=== PATIENT | male | born 1960 | race Caucasian/White ===

== ENCOUNTER 2016-06-02 05:52 | Inpatient (IN) | payer MEDICARE ==
[2016-06-02] MEDS ORDERED: PROVENTIL 2.5 MG/3 ML NEB IH ONE ×2 (06:00→06:29)
[2016-06-02] MEDS ORDERED: Sodium Chloride 0.9% 1000 ML 1,000 ML ONE (06:07)
--- NOTE | 2016-06-02 06:10 | ERPHSYRPT ---
- History of Present Illness Source: patient Exam Limitations: no limitations Patient Subjective Stated Complaint: pt has been short of air for 2 weeks and hasn't been able to sleep ashley las couple of night and tonight it is worse - cough is productive of green sputum upon arr of ems he was sitting tripod in chair able to speak in single words using accessory muscles Triage Nursing Assessment: pt is awake and alert and able to answer questions but is still short of breath Timing/Duration: week(s) (2 weeks) Activities at Onset: none Severity of Dyspnea-Max: moderate Severity of Dyspnea-Current: moderate Possible Cause: occasional episodes Modifying Factors: Improves With: coughing Associated Symptoms: constant, cough, fever, wheezing, productive cough, No anxiety, No chest pain/discomfort, No edema, No insomnia, No loss of appetite, No lightheadedness, No weakness, No ankle swelling, No chills, No hemoptysis, No calf pain, No dizziness, No heaviness, No heart racing, No lightheadedness, No leg swelling, No muscle spasms feet, No muscle spasms hands, No painful breathing, No sweating, No tightness, No tingling face, No tingling hands International travel in last 2 weeks: No Hx Tetanus, Diphtheria Vaccination/Date Given: Yes Hx Influenza Vaccination/Date Given: No Hx Pneumococcal Vaccination/Date Given: No <WALTER TIJERINA - Last Filed: 06/02/16 07:17> <KAYE POTTS - Last Filed: 06/02/16 08:56> - History of Present Illness Time Seen by Provider: 06/02/16 06:00 Physician History: This is a 56-year-old white male arrives with complaint Of shortness of breath cough productive of yellow sputum and fever symptoms going on for 2 weeks he states he is aching all over he does not have chest pain. He is not vomiting no diarrhea. Past medical history includes high blood pressure, COPD, asthma. Past surgical history includes joint replacement. Social history positive for tobacco use, (WALTER TIJERINA) Allergies/Adverse Reactions: No Known Drug Allergies Allergy (Verified 06/02/16 06:11) Home Medications: Albuterol Sulfate [Proair Hfa] 8.5 gm IH Q4HPRN PRN 08/06/15 [History] Aspirin [Aspirin EC] 81 mg PO DAILY 08/06/15 [History] Budesonide/Formoterol Fumarate [Symbicort 160-4.5 Mcg Inhaler] 10.2 gm IH BID [History] Hydrocodone/APAP 10/325 mg [Delmont 10/325 MG Tablet] 1 tab PO Q6HPRN PRN [History] Hydroxyzine HCl 25 mg [Atarax 25 mg] 25 mg PO BID 08/06/15 [History] Pravastatin Sodium 40 mg PO DAILY 08/06/15 [History] Prednisone 10 mg [Deltasone 10 mg] 10 mg PO DAILY PRN PRN 08/06/15 [ History] Lisinopril/Hydrochlorothiazide [Lisinopril-Hctz 10-12.5 mg Tab] 1 each PO DAILY 01/15/16 [History] Albuterol 2.5 mg/3 ml Neb [Proventil 2.5 mg/3 ml Neb] 1 inh IH Q4-6HPRN PRN 02/02/16 [History] Metoprolol Tartrate 25 mg [Lopressor 25MG Tab] 1 tab PO DAILY 02/02/16 [ History] - Review of Systems Constitutional: Fever, No Chills, No Fatigue, No Lethargy, No Malaise, No Night Sweats, No Weakness, No Weight Loss Eyes: No Symptoms, No Discharge, No Eye Pain, No Eye Redness, No Itchy, No Photophobia, No Tearing, No Vision Changes, No Double Vision, No Foreign Body Sensation Ears, Nose, & Throat: No Ear Pain, No Ear Discharge, No Hearing Changes, No Tinnitus, No Nose Pain, No Nose Congestion, No Nose Discharge, No Sinus Drainage , No Epistaxis, No Mouth Pain, No Mouth Swelling, No Loose Teeth, No Throat Pain , No Throat Swelling, No Hoarse, No Painful Swallowing, No Snoring, No Stridor Respiratory: Cough, Dyspnea, Wheezing Cardiac: No Chest Pain, No Edema, No Syncope Abdominal/Gastrointestinal: No Abdominal Pain, No Nausea, No Vomiting, No Diarrhea, No Constipation, No Hematemesis, No Hematochezia, No Melena, No Dysphagia, No Appetite Changes Genitourinary Symptoms: No Dysuria Musculoskeletal: No Back Pain, No Neck Pain Skin: No Cellulitis, No Decubiti, No Induration, No Pruritis, No Rash, No Skin Lesions, No Dryness Neurological: No Dizziness, No Focal Weakness, No Sensory Changes Psychological: No Symptoms Endocrine: No Symptoms All Other Systems: Reviewed and Negative <ELVINMARUWALTER AHMADILEY - Last Filed: 06/02/16 07:17> - Past Medical History Pertinent Past Medical History: Yes Neurological History: No Pertinent History ENT History: No Pertinent History Cardiac History: High Cholesterol, Hypertension Respiratory History: Asthma, COPD, Other Endocrine Medical History: No Pertinent History Musculoskeletal History: No Pertinent History GI Medical History: No Pertinent History History: No Pertinent History Psycho-Social History: No Pertinent History Male Reproductive Disorders: No Pertinent History Other Medical History: COPD - Past Surgical History Past Surgical History: Yes Neuro Surgical History: No Pertinent History Cardiac: No Pertinent History Respiratory: No Pertinent History Gastrointestinal: No Pertinent History Genitourinary: No Pertinent History Musculoskeletal: Joint Replacement Male Surgical History: No Pertinent History Other Surgical History: left hip replacement - Social History Smoking Status: Current every day smoker How long have you smoked: 30YRS Exposure to second hand smoke: Yes Drug Use: none Patient Lives Alone: No <JUAN DANIELWALTER VICENTE - Last Filed: 06/02/16 07:17> - Physical Exam General Appearance: moderate distress Eye Exam: PERRL/EOMI, eyes nml inspection, No scleral icterus, No pale conjunctivae, No photophobia, No post op pupil defect (L), No post op pupil defect (R), No EOM palsy/anisocoria Ears, Nose, Throat Exam: hearing grossly normal, normal ENT inspection, normal pharynx, No abnormal TM (R), No abnormal TM (L), No sinus pain/drainage, No hearing decreased, No nasal congestion, No pharyngeal erythema, No tonsillar exudate, No tonsillar swelling Neck Exam: normal inspection, supple, full range of motion, lymphadenopathy (R) , No lymphadenopathy (L) Respiratory Exam: diminished breath sounds, wheezing, other (frequent cough) Cardiovascular/Chest Exam: tachycardia (heart tachycardic without murmur) Abdominal/Gastrointestinal Exam: soft, No tenderness, No distention, No mass Extremity Exam: non-tender, normal range of motion, normal inspection, no calf tenderness, no pedal edema Peripheral Pulses Exam: dorsalis-pedis (R): 2+, dorsalis-pedis (L): 2+ Neurologic Exam: alert, oriented x 3, cooperative, technology project manager II-XII nml as tested, sensation nml, No motor deficits Skin Exam: normal color, warm, No dry SpO2 Interpretation: normal (98%) SpO2: 98 Oxygen Delivery: Nasal Cannula <WALTER TIJERINA - Last Filed: 06/02/16 07:17> - Course Nursing assessment & vital signs reviewed: Yes EKG Interpreted by Me: RATE (117 bpm), Sinus Tach, NORMAL AXIS, Other (EKG sinus tachycardia 1 17 bpm normal axis moderate amount of artifact no acute ST or T wave changes noted) - Radiology Exams Chest X-ray Interpretation: Reviewed by me (right lowerlobe infiltrate) <WALTER TIJERINA - Last Filed: 06/02/16 07:17> - Progress Progress: improved Air Movement: fair <WALTER TIJERINA - Last Filed: 06/02/16 07:17> - Progress Air Movement: good <KAYE POTTS - Last Filed: 06/02/16 08:56> - Progress Progress Note: 06/02/16 07:17 56-year-old white male with history of high blood pressure COPD and asthma arrives with complaints of shortness of breath coughing yellow sputum of fever symptoms going on for 2 days patient was given DuoNeb treatment and Solu-Medrol by medics prior to arrival. Patient still with bilateral wheezes in his lungs patient tachycardic, patient with a blood pressure of 104.5 rectally. Patient started on IV fluids blood cultures have been obtained patient started on 100 per hour of normal saline with 2 L of normal saline IV ordered. Patient with a white count of 8.3 hemoglobin 83.3 hematocrit 44.1 platelets 227. Venous gas is pH 7.37 PCO2 65. Chemistry sodium 141 potassium 5.0 chloride 101 bicarbonate 34.6 BUN 20 and creatinine 1.19 glucose is 125 Troponin is normal BNP is normal; Chest x-ray is remarkable for a right lower lobe infiltrate; Patient does have a splint on his left arm which was placed in the middle of April by his surgeon in [facility] he is due to follow-up with his surgeon in June. Impression 1 COPD with exacerbation 2. Right lower lobe pneumonia 3. Sepsis. Plan patient will be given IV fluids Rocephin. Will continue with albuterol treatments. Repeat lactate will be obtained from this patient after IV fluids have been infused. Patient did have a elevated d-dimer CT of the chest has been ordered and is pending. Case is discussed with Dr. Camargo will admit patient to ICU with the above diagnosis Dr. Mancilla will follow-up on the patient's lactate and CT scan. . (WALTER TIJERINA) 06/02/16 07:40 Patient history was discussed with me by Dr. Tijerina. I except care at 07:00. The patient has been admitted for pneumonia and sepsis by Dr. Tijerina. The patient goes to radiology for CT scan of the chest to evaluate for PE because d- dimer is elevated. While in radiology, patient refuses the scan. The first liter of fluid has been delivered. A second lactic acid has been drawn. (KYAE POTTS) - Departure Time of Disposition: 07:21 Departure Disposition: In-patient Admission ( ) <WALTER TIJERINA - Last Filed: 06/02/16 07:17> - Departure Departure Disposition: In-patient Admission Critical Care Time: Yes Critical Care Time(excluding separately billable procedures): 30-74 minutes <KAYE POTTS - Last Filed: 06/02/16 08:56> - Departure Clinical Impression: COPD with exacerbation Pneumonia Qualifiers: Pneumonia type: due to unspecified organism Laterality: right Lung location: lower lobe of lung Qualified Code(s): J18.1 - Lobar pneumonia, unspecified organism Sepsis Qualifiers: Sepsis type: sepsis due to unspecified organism Qualified Code(s): A41.9 - Sepsis, unspecified organism Fever Qualifiers: Fever type: unspecified Qualified Code(s): R50.9 - Fever, unspecified Condition: Stable
[2016-06-02] MEDS ORDERED: Sodium Chloride 0.9% 1000 ML 1,000 ML IV SCH (06:15)
[2016-06-02 06:27] LABS: Lactic Acid 2.3 (0.4-2.0); VBG BASE EXCESS 9.7 (-2.0-2.0); VBG CARBOXYHEMOGLOBIN 3.5 % T HGB (0.0-6.9); VBG HCO3- 37.6 meq/L (22-28); VBG HEMOGLOBIN 13.7; VBG O2 SATURATION 53.2 (95-100); VBG POTASSIUM 4.6 (3.5-5.1); VBG pH 7.37 (7.32-7.42)
[2016-06-02 06:28] LABS: Mean Corpuscular Hemoglobin 29.6 pg (26-32); Mean Platelet Volume 9.4 fl (6-9.5); Platelet Count 227 K/mm3 (150-450); Red Cell Distribution Width 13.5 % (11.5-14.0); White Blood Count 8.3 K/mm3 (4.0-10.5)
[2016-06-02] MEDS ORDERED: FEVERALL 650 MG PR ONE ×2 (06:28→07:21)
[2016-06-02] MEDS ORDERED: ROCEPHIN 1 Gm-D5w 50 ml Bag** 50 ML IV ONE ×2 (06:29→06:41)
[2016-06-02] MEDS ORDERED: FEVERALL 650 MG ONE (06:30)
[2016-06-02] MEDS ORDERED: FEVERALL 325 MG ONE (06:30)
[2016-06-02 06:53] LABS: ALBUMIN 3.1 g/dL (3.4-5.0); ALKALINE PHOSPHATASE 102 U/L (46-116); ANION GAP 10.2 MEQ/L (5-15); BILIRUBIN,TOTAL 0.2 mg/dL (0.2-1.0); BLOOD UREA NITROGEN 20 mg/dL (9-20); CHLORIDE 101 mEq/L (98-107); Carbon Dioxide 34.6 mEq/L (21-32); Glucose 125 MG/DL (70-110); SGOT/AST 16 U/L (15-37); SGPT/ALT 21 U/L (12-78); SODIUM 141 mEq/L (136-145); TROPONIN < 0.017 ng/ml (0.000-0.056)
[2016-06-02] MEDS ORDERED: Sodium Chloride 0.9% 1000 ML 1,000 ML IV STA ×2 (06:56→07:01)
[2016-06-02] MEDS ORDERED: Sodium Chloride 0.9% 1000 ML 2,000 ML ONE (07:04)
[2016-06-02 07:12] LABS: Platelet Estimate NORMAL (NORMAL); Total Cells Counted 100
[2016-06-02] MEDS ORDERED: FEVERALL 325 MG PR STA (07:21)
[2016-06-02] MEDS ORDERED: DUONEB 0.5-3 MG/3 ml Neb IH PRN (08:48)
[2016-06-02] MEDS ORDERED: Zofran 4 MG/2 ML VIAL IV PRN (08:48)
[2016-06-02] MEDS ORDERED: TYLENOL 325 MG PO PRN (08:48)
--- NOTE | 2016-06-02 09:16 | XRAY ---
Indication: Short of breath. Comparison: February 02, 2016. Portable apical lordotic chest again hyperinflated with chronic lung markings and scattered calcified granulomas. There is now subtle right base infiltrate/atelectasis without consolidation or large effusion. Heart is not enlarged. Bony thorax intact. Impression: 1. Right base infiltrate/atelectasis. Correlate clinically. 2. Stable COPD and evidence for old granulomatous disease.
[2016-06-02] MEDS: Sodium Chloride 0.9% 1000 ML 1,000 ML IV SCH ×2 (09:38→21:48)
[2016-06-02] MEDS ORDERED: Zithromax 500 MG/ 250 ML NaCl Premix 250 ML IV SCH (10:00)
[2016-06-02] MEDS ORDERED: DUONEB 0.5-3 MG/3 ml Neb IH ONE (10:19)
[2016-06-02] MEDS: Advair Hfa 230/21 Mcg COMMON CANISTER IH SCH ×2 (10:20→22:07)
[2016-06-02] MEDS: DUONEB 0.5-3 MG/3 ml Neb IH SCH ×3 (10:20→21:40)
[2016-06-02] MEDS: NovoLOG Insulin SQ PRN ×2 (11:45→17:42)
--- NOTE | 2016-06-02 13:42 | CONS ---
CONSULT DATE: 06/02/2016 REASON FOR CONSULTATION: Evaluation of shortness of breath, pneumonia, sepsis. HISTORY: Lew Gomez is a 56 year-old male with significant smoking history who has recently had left elbow surgery. The patient reports that he has been sick for the last month or so. He presented to the emergency room at [facility] this morning reporting worsening shortness of breath, cough, and low grade fever. The patient was noted to be hypotensive and has been to ICU. At the time of my evaluation the patient reports feeling better. He does report cough productive of yellow expectoration. The patient denies any hemoptysis. He also had pneumonia in January 2016. The patient reports that he recently had a PFT performed at [facility] before undergoing left elbow surgery that was caused by fall on 05/02/2015. He was told that his breathing number was 25% which had improved from 17% per patient. His effort tolerance has been moderately reduced. He uses oxygen 24 hours a day along with nebulizer. Unfortunately, he continues to smoke. PAST MEDICAL HISTORY: Positive for hypertension. The patient saw Dr. Escobar and was told that he does not have coronary artery disease, there is history of hyperlipidemia. He does not have diabetes. He uses oral steroids as needed. PAST SURGICAL HISTORY: Recent left elbow surgery. PERSONAL AND SOCIAL HISTORY: He has been a smoker currently has cut down to one pack per week but in the past had smoked well over two packs per day with cumulative smoking history of 100 pack years. MEDICATIONS: Home and current medications are reviewed. ALLERGIES: NKDA. PHYSICAL EXAMINATION: This is a middle aged male who appears comfortable. The patient is able to speak without much difficulty. Vital signs are noted. Blood pressure 90/60. Saturating 98%. HEENT: Normocephalic. Pupils are reactive. Oral exam is limited. Partially edentulous. NECK: Short and supple. CVS: First and second heart sounds are normal, regular, rhythmic. RESPIRATORY: Shows diminished breath sounds. No rhonchi heard. ABDOMEN: Obese. EXTREMITIES: No significant edema is noted. LABORATORY DATA AND TESTS: D-dimer is 1.558. A pH of 7.37, pCO2 65, pO2 of 53. Sodium 141, potassium 5.0, chloride 101, bicarb 34, glucose 125, BUN 20, creatinine 1.1. Lactic acid 2.3. Albumin 3.1. White blood cell count 8.3, hemoglobin 13.3, hematocrit 44, PLT 227,000. Chest x-ray showed right lower lobe infiltrate. ASSESSMENT: This is a 56 year old male admitted with: 1) Right lower lobe community acquired pneumonia. 2) Severe sepsis secondary to community acquired pneumonia. 3) Chronic obstructive pulmonary disease with exacerbation. 4) Nicotine addiction. 5) Marginal lactic acidosis. 6) Hypercapnic/hypoxic respiratory failure. 7) Hypertension currently hypotensive due to infection. RECOMMENDATIONS: The patient is admitted to ICU. Continue close cardiopulmonary monitoring, aggressive hydration per sepsis protocol, continue broad spectrum IV antibiotics, follow up cultures, will also benefit from short bursts of steroids for bronchospasm, continue bronchodilators, deep venous thrombosis and GI prophylaxis. A CT chest with pulmonary embolism protocol may be required at some point but will certainly need monitoring of renal functions prior to administration of contrast. Need for smoking cessation was stressed. Will attempt to get results of PFT from [facility] and continue to follow. Thank you for allowing me to participate in the care of Lew GomezNanci
--- NOTE | 2016-06-02 13:53 | XRAY ---
Indication: Elevated d-dimer. Two-dimensional sonogram and color Doppler imaging of the major venous vessels of the left and right leg was performed. Comparison: None No thrombus seen in the examined deep venous vessels of the left or right leg including greater saphenous veins. Veins demonstrate normal compressibility. Venous waveforms are normal with and without augmentation. Impression: Left and right legs negative for DVT.
[2016-06-02] MEDS: ENOXAPARIN SODIUM SQ SCH (13:58)
[2016-06-02] MEDS: LEVOFLOXACIN 750MG/150ML D5W 150 ML IV SCH (13:58)
[2016-06-02] MEDS: ECOTRIN 81 MG PO SCH (13:58)
[2016-06-02] MEDS: ATARAX 25 MG PO SCH ×2 (13:58→21:47)
[2016-06-02] MEDS: solu-MEDROL 40 MG IV SCH ×2 (14:03→21:48)
--- NOTE | 2016-06-02 14:30 | HP ---
HISTORY OF PRESENT ILLNESS: Lew Gomez is a 56 year old male with past medical history of hypertension, congestive heart failure, chronic obstructive pulmonary disease, chronic pain syndrome and hyperlipidemia. He presented to the emergency room earlier this morning with symptoms of increasing shortness of breath, productive cough, chest congestion, fever off and on for the last month. His symptoms particularly got worse in the last two weeks. There was no reported history of chest pain as such. Vitals in the emergency room were notable for blood pressure 120/68 however eventually he was noted to have blood pressure 85/48 while in the emergency room. He was treated with normal saline fluid bolus x3 subsequently. He was admitted to the ICU for further monitoring and management. CT scan was attempted however the patient was claustrophobic and that could not be performed. At the time of this evaluation the patient is alert, awake, comfortable. He states his shortness of breath is somewhat better. Complains of cough with green phlegm. Complains of chest congestion. PAST MEDICAL HISTORY: As noted above. PAST SURGICAL HISTORY: Recent history of left upper extremity surgery about two weeks back. The patient said he has not followed up with his orthopedic surgeon since then. Left hip replacement. ALLERGIES: NKDA. MEDICATIONS: Current medications were reviewed. FAMILY HISTORY: Noncontributory. SOCIAL HISTORY: The patient is an active smoker. Denies illicit drug use. REVIEW OF SYSTEMS: Denies headache or dizziness. Complains of fatigue. Complains of fever. Complains of shortness of breath, productive cough, chest congestion. Denies palpitations. Denies chest pain. Denies abdominal pain, nausea or vomiting. Denies constipation or diarrhea. Denies urinary complaints. PHYSICAL EXAMINATION: A middle aged male lying comfortably in bed, not in acute distress. VITAL SIGNS: Blood pressure 116/61, heart rate 104, respiratory rate 17, temperature 98.5F. Oxygen saturation 94% on 3 liters. HEENT: No pallor or icterus is noted. NECK: No JVD is present. CVS: S1, S2 present. RESPIRATORY: Breath sounds are bilaterally diminished, bilateral wheezing present. ABDOMEN: Obese, soft, nontender. NEURO: He is alert, oriented x3. EXTREMITIES: No edema on bilateral lower extremities. Wrapping is present on left forearm area and part of left hand. LABORATORY DATA AND TESTS: Labs from today show unremarkable CBC. D-dimer 1.558. Venous blood gas shows pH 7.37. CMP unremarkable except for glucose 125, lactic acid 2.3 and then 1.2. Troponin was less than 0.017. NT-BNP 28. Chest x-ray showed right base infiltrates/atelectasis. EKG had shown sinus tachycardia at 117 beats/minute, moderate amount of artifact, no acute ST-T changes per emergency room records. Blood cultures and sputum cultures are pending. ASSESSMENT: A 56 year old male with impression: 1) CHRONIC OBSTRUCTIVE PULMONARY DISEASE WITH EXACERBATION. 2) PNEUMONIA. 3) ELEVATED D-DIMER. 4) HISTORY OF HYPERTENSION/CONGESTIVE HEART FAILURE. 5) HYPERLIPIDEMIA. 6) CHRONIC PAIN SYNDROME. 7) OBESITY. 8) RECENT HISTORY OF LEFT ARM SURGERY. PLAN: Will continue nebulization, broad spectrum IV antibiotics. Continue IV fluids. Continue to monitor hemodynamic status. Addition of IV steroids. Pulmonary consult was noted. Will start full dose anticoagulation. Will follow up cultures. The patient's clinical condition, work up results and plan of management was discussed with him. He seems to be in understanding and agreement. Discussed with patient's nurse, Yue.
[2016-06-02] MEDS: OXYCODONE-ACETAMINOPHEN 10-325 PO PRN ×2 (16:07→21:47)
[2016-06-02 17:25] LABS: Mean Cell Volume 99.5 fl (78-100); Mean Corpuscular Hemoglobin 29.8 pg (26-32); Mean Platelet Volume 9.3 fl (6-9.5); Platelet Count 210 K/mm3 (150-450); Red Blood Count 3.99 M/mm3 (4.1-5.6); Red Cell Distribution Width 13.9 % (11.5-14.0); White Blood Count 7.1 K/mm3 (4.0-10.5)
[2016-06-02 18:06] LABS: ALBUMIN 2.8 g/dL (3.4-5.0); ALKALINE PHOSPHATASE 89 U/L (46-116); ANION GAP 15.2 MEQ/L (5-15); BLOOD UREA NITROGEN 17 mg/dL (9-20); CHLORIDE 102 mEq/L (98-107); Carbon Dioxide 26.2 mEq/L (21-32); Glucose 185 MG/DL (70-110); Potassium 4.4 mEq/L (3.5-5.1); SGOT/AST 16 U/L (15-37); SGPT/ALT 15 U/L (12-78); SODIUM 139 mEq/L (136-145); Total Protein 6.6 gm/dL (6.4-8.2)
[2016-06-02 18:09] LABS: BILIRUBIN,TOTAL < 0.1 mg/dL (0.2-1.0)
[2016-06-02 18:17] LABS: VBG CARBOXYHEMOGLOBIN 4.2 % T HGB (0.0-6.9); VBG HEMOGLOBIN 12.3; VBG POTASSIUM 4.6 (3.5-5.1); VBG pH 7.17 (7.32-7.42)
[2016-06-02] MEDS ORDERED: Lasix 20 MG/2 ML IV ONE (18:25)
[2016-06-02] MEDS ORDERED: Ativan 2 MG/1 ML VIAL IV PRN (18:25)
[2016-06-02 21:25] LABS: A-aADO2 143; ARTERIAL BLD GAS O2 SATURATION 99.7 % (95-100); ARTERIAL BLOOD GAS BASE EXCESS 4.8 (-2.0-2.0); ARTERIAL BLOOD GAS FIO2 45 %; ARTERIAL BLOOD GAS PO2 114 mmHg (75-100); ARTERIAL BLOOD GAS pH 7.39 (7.35-7.45)
[2016-06-02] MEDS: ROCEPHIN 1 Gm-D5w 50 ml Bag** 50 ML IV SCH (21:47)
[2016-06-03] MEDS: DUONEB 0.5-3 MG/3 ml Neb IH SCH ×6 (00:27→20:36)
[2016-06-03 05:27] LABS: Mean Corpuscular Hemoglobin 29.5 pg (26-32); Mean Platelet Volume 9.3 fl (6-9.5); Platelet Count 230 K/mm3 (150-450); Red Blood Count 4.03 M/mm3 (4.1-5.6); Red Cell Distribution Width 13.8 % (11.5-14.0)
[2016-06-03 05:53] LABS: ALBUMIN 2.8 g/dL (3.4-5.0); ALKALINE PHOSPHATASE 91 U/L (46-116); ANION GAP 13.5 MEQ/L (5-15); BLOOD UREA NITROGEN 20 mg/dL (9-20); CHLORIDE 101 mEq/L (98-107); Carbon Dioxide 27.7 mEq/L (21-32); Glucose 161 MG/DL (70-110); Potassium 4.4 mEq/L (3.5-5.1); SGOT/AST 14 U/L (15-37); SGPT/ALT 16 U/L (12-78); SODIUM 138 mEq/L (136-145); Total Protein 6.6 gm/dL (6.4-8.2)
[2016-06-03 05:54] LABS: BILIRUBIN,TOTAL < 0.1 mg/dL (0.2-1.0)
[2016-06-03] MEDS: solu-MEDROL 40 MG IV SCH ×3 (05:58→22:34)
[2016-06-03 06:01] LABS: BIPAP(E) 10; BIPAP(I) 16
[2016-06-03 06:02] LABS: ALLEN TEST OK? YES
[2016-06-03] MEDS: Advair Hfa 230/21 Mcg COMMON CANISTER IH SCH ×2 (07:15→20:36)
[2016-06-03 07:29] LABS: BAND 11 % (0.0-2.0); Basophil 1 % (0.0-1.0); Total Cells Counted 100
[2016-06-03 07:30] LABS: Platelet Estimate NORMAL (NORMAL)
[2016-06-03] MEDS: Sodium Chloride 0.9% 1000 ML 1,000 ML IV SCH ×2 (09:21→22:10)
[2016-06-03] MEDS: ENOXAPARIN SODIUM SQ SCH ×2 (09:23→22:15)
[2016-06-03] MEDS: ECOTRIN 81 MG PO SCH (09:23)
[2016-06-03] MEDS: ATARAX 25 MG PO SCH ×2 (09:53→22:20)
--- NOTE | 2016-06-03 10:38 | PROG NOTE ---
DATE: 06/03/16 Chart reviewed. Events noted. At the time of this evaluation, patient is alert, awake, and comfortable. States his shortness of breath has improved. Denies pain. VITALS: BP 112/63, heart rate 110, respiratory rate 17, temperature 98.6, O2 saturations 93% on 5 liters. HEENT: No pallor or icterus is noted. NECK: No JVD present. CVS: S1 and S2 present. RESPIRATORY: Breath sounds bilaterally diminished. Occasional rhonchi present. ABDOMEN: Obese, soft, nontender. NEURO: Alert and oriented X 3. EXTREMITIES: Reveals no edema on bilateral lower extremities. Examination of left forearm reveals well healing surgical wound, approximated, nontender, dry, no discharge (gary are removed after discussion with orthopedics yesterday). LABORATORY DATA: Labs from today show CBC with WBC of 7, Hgb 11.9, Hct 39.5, platelets 230, neutrophils 80, lymphocytes 11. CMP is unremarkable except glucose of 161. Lactic acid is 3.0. Venous Doppler's from bilateral lower extremities are negative. Medications were reviewed. ASSESSMENT: 56 y/o male with impression: 1. CHRONIC OBSTRUCTIVE PULMONARY DISEASE WITH EXACERBATION - CLINICALLY IMPROVING. 2. PNEUMONIA. 3. ELEVATED D-DIMER. 4. STATUS POST ACUTE RESPIRATORY FAILURE. 5. CHRONIC HYPOXEMIA. 6. HYPERTENSION/CONGESTIVE HEART FAILURE. 7. HYPERLIPIDEMIA. 8. CHRONIC PAIN SYNDROME. 9. OBESITY. PLAN: 1. After discussion with pulmonary, patient was placed on BIPAP yesterday. He seems to be improving clinically and currently remains hemodynamically stable. Will continue the supplemental O2, nebulizations, broad spectrum IV antibiotics. 2. Will change to full dose Lovenox. 3. Will get CT scan of chest. 4. Continue to follow CBC and electrolytes. 5. Management of left arm surgical wound per orthopedic recommendations. Patient's clinical condition, work-up results, and plan of management was discussed with him. He seems to be in understanding and agreement. Discussed with patient's nurse, Drew.
[2016-06-03] MEDS ORDERED: Ativan 2 MG/1 ML VIAL IV ONE (10:49)
--- NOTE | 2016-06-03 13:14 | XRAY ---
Indication: Short of breath, COPD, asthma, bronchitis, and elevated d-dimer. Multiple contiguous axial images obtained through the chest using 80 cc Isovue 370 contrast and PE protocol. Comparison: None There is satisfactory opacification of the pulmonary arteries. However respiration artifact limits evaluation of the more distal arteries especially near the lung bases. There are tiny nonoccluding pulmonary emboli in the segmental branches of the left lower lobe as well as the left upper lobe apical segmental branch. Heart is not enlarged. Aorta is normal in course and caliber. No pathologic mediastinal/hilar lymphadenopathy. Examination of the lung parenchyma demonstrates right middle lobe and left lower lobe subsegmental atelectasis. Right upper lobe calcified granuloma. No infiltrates or effusion. Bony thorax intact with minimal degenerative changes throughout the spine. Limited upper abdomen demonstrates 1 cm gallstone in the neck of the gallbladder. Impression: 1. Limited exam due to respiration artifact. 2. Nonoccluding pulmonary emboli in the segmental branches of the left upper and left lower lobes. No distal infarct. 3. Right middle and left lower lobe subsegmental atelectasis. 4. Solitary gallstone. CT DI 28.13
[2016-06-03] MEDS: NovoLOG Insulin SQ PRN (13:30)
[2016-06-03] MEDS: OXYCODONE-ACETAMINOPHEN 10-325 PO PRN (14:39)
[2016-06-03] MEDS: LEVOFLOXACIN 750MG/150ML D5W 150 ML IV SCH (14:42)
[2016-06-03] MEDS: ROCEPHIN 1 Gm-D5w 50 ml Bag** 50 ML IV SCH (22:10)
[2016-06-04] MEDS: DUONEB 0.5-3 MG/3 ml Neb IH SCH ×7 (01:09→22:58)
[2016-06-04] MEDS: Sodium Chloride 0.9% 1000 ML 1,000 ML IV SCH ×3 (02:01→21:00)
[2016-06-04] MEDS: solu-MEDROL 40 MG IV SCH ×3 (06:40→22:35)
[2016-06-04] MEDS: Advair Hfa 230/21 Mcg COMMON CANISTER IH SCH ×2 (07:30→18:55)
[2016-06-04] MEDS: ATARAX 25 MG PO SCH (09:09)
[2016-06-04] MEDS: OXYCODONE-ACETAMINOPHEN 10-325 PO PRN ×2 (09:12→14:34)
[2016-06-04 09:50] LABS: Mean Cell Volume 98.5 fl (78-100); Mean Corpuscular Hemoglobin 29.3 pg (26-32); Mean Platelet Volume 9.5 fl (6-9.5); Platelet Count 236 K/mm3 (150-450); Red Blood Count 3.99 M/mm3 (4.1-5.6); Red Cell Distribution Width 14.1 % (11.5-14.0); White Blood Count 10.7 K/mm3 (4.0-10.5)
[2016-06-04 09:52] LABS: ANION GAP 11.3 MEQ/L (5-15); BLOOD UREA NITROGEN 22 mg/dL (9-20); CHLORIDE 104 mEq/L (98-107); Carbon Dioxide 30.4 mEq/L (21-32); Glucose 169 MG/DL (70-110); Potassium 4.4 mEq/L (3.5-5.1); SODIUM 141 mEq/L (136-145)
[2016-06-04 09:55] LABS: INR 1.02 (0.8-3.0); PROTIME 11.4 SECONDS (8.83-12.87)
[2016-06-04] MEDS: ENOXAPARIN SODIUM SQ SCH ×2 (10:39→22:35)
[2016-06-04] MEDS: ECOTRIN 81 MG PO SCH (10:39)
[2016-06-04] MEDS: LEVOFLOXACIN 750MG/150ML D5W 150 ML IV SCH (14:23)
[2016-06-04] MEDS ORDERED: Phenergan 25 MG INJ IM PRN (17:21)
[2016-06-04] MEDS: PROTONIX 40 MG IV IV SCH (17:53)
[2016-06-04] MEDS: Zofran 4 MG/2 ML VIAL IV SCH (18:57)
[2016-06-04] MEDS: ROCEPHIN 1 Gm-D5w 50 ml Bag** 50 ML IV SCH (22:35)
[2016-06-05] MEDS: DUONEB 0.5-3 MG/3 ml Neb IH SCH ×6 (03:11→22:41)
[2016-06-05 05:39] LABS: Mean Cell Volume 99.2 fl (78-100); Mean Platelet Volume 9.1 fl (6-9.5); Platelet Count 222 K/mm3 (150-450); Red Blood Count 3.69 M/mm3 (4.1-5.6); Red Cell Distribution Width 14.1 % (11.5-14.0)
[2016-06-05 05:42] LABS: Mean Corpuscular Hemoglobin 29.2 pg (26-32)
[2016-06-05 05:59] LABS: ALBUMIN 2.4 g/dL (3.4-5.0); ALKALINE PHOSPHATASE 79 U/L (46-116); ANION GAP 10.8 MEQ/L (5-15); BILIRUBIN,TOTAL 0.2 mg/dL (0.2-1.0); BLOOD UREA NITROGEN 24 mg/dL (9-20); CHLORIDE 104 mEq/L (98-107); Carbon Dioxide 29.4 mEq/L (21-32); Glucose 148 MG/DL (70-110); Potassium 4.5 mEq/L (3.5-5.1); SGOT/AST 21 U/L (15-37); SGPT/ALT 27 U/L (12-78); SODIUM 140 mEq/L (136-145); Total Protein 5.7 gm/dL (6.4-8.2)
[2016-06-05] MEDS: solu-MEDROL 40 MG IV SCH ×3 (06:35→22:22)
[2016-06-05] MEDS: Zofran 4 MG/2 ML VIAL IV SCH ×4 (06:38→18:45)
[2016-06-05] MEDS: Advair Hfa 230/21 Mcg COMMON CANISTER IH SCH ×2 (07:30→18:38)
--- NOTE | 2016-06-05 08:38 | PCM.NOTE ---
Date and Time: 06/05/16 0837 Subjective Assessment: patient is feeling better, - Review of Systems Constitutional: No Fever, No Chills Eyes: No Symptoms Ears, Nose, & Throat: No Symptoms Respiratory: Cough, Short Of Breath, Wheezing Cardiac: No Chest Pain, No Edema, No Syncope Abdominal/Gastrointestinal: No Abdominal Pain, No Nausea, No Vomiting, No Diarrhea Genitourinary Symptoms: No Dysuria Musculoskeletal: No Back Pain, No Neck Pain Skin: No Rash Neurological: No Dizziness, No Focal Weakness, No Sensory Changes Psychological: No Symptoms Endocrine: No Symptoms Hematologic/Lymphatic: No Symptoms Immunological/Allergic: No Symptoms Objective Exam General Appearance: no apparent distress, alert Neurologic Exam: alert, oriented x 3, cooperative, normal mood/affect, nml cerebellar function, sensation nml, No motor deficits Skin Exam: normal color, warm, dry Eye Exam: PERRL, EOMI, eyes nml inspection Ears, Nose, Throat Exam: normal ENT inspection, pharynx normal, moist mucous membranes Neck Exam: normal inspection, non-tender, supple, full range of motion Respiratory Exam: diminished breath sounds, rhonchi, wheezing, No respiratory distress Cardiovascular Exam: regular rate/rhythm, normal heart sounds Gastrointestinal/Abdomen Exam: soft, No tenderness, No mass Extremity Exam: normal inspection, normal range of motion Back Exam: normal inspection, normal range of motion, No CVA tenderness, No vertebral tenderness Male Genitalia Exam: deferred Rectal Exam: deferred OBJECTIVE DATA Vital Signs: Vital Signs - 24 hr Temp Pulse Resp BP Pulse Ox 06/05/16 07:00 79 22 97 06/05/16 06:10 98 06/05/16 05:00 98.3 F 73 20 123/77 97 06/05/16 03:14 80 18 98 06/04/16 23:30 98.3 F 93 H 18 122/79 96 06/04/16 23:01 75 20 95 06/04/16 20:00 98.6 F 84 19 122/72 97 06/04/16 16:00 98.4 F 108 H 14 146/92 94 L 06/04/16 12:00 98.8 F 105 H 21 128/78 97 06/04/16 08:00 98.7 F 114 H 20 124/77 95 Oxygen-Last 24 hours O2 Percentage 5 Liters = 40% O2 Percentage 5 Liters = 40% O2 Percentage 5 Liters = 40% O2 Percentage 5 Liters = 40% O2 Percentage 5 Liters = 40% Pain Assessment - Last Documented Pain Intensity 4 Pain Scale Used FLACC Intake and Output: Intake & Output 06/02/16 06/03/16 06/04/16 06/05/16 11:59 11:59 11:59 12:59 Intake Total 5553 3915 4171 Output Total 2400 3175 1325 Balance 3153 742 5489 Lab Results: Accuchecks Date 06/05/16 Date 06/04/16 Date 06/04/16 Time 22:17 Time 17:05 Accucheck Value: 111 Accucheck Value: 148 Accucheck Value: 143 Lab Results-Last 24 Hours 06/04/16 06/04/16 06/04/16 Range/Units 09:25 09:25 09:25 WBC 10.7 H (4.0-10.5) K/mm3 RBC 3.99 L (4.1-5.6) M/mm3 Hgb 11.7 L (12.5-18.0) gm/dl Hct 39.3 L (42-50) % MCV 98.5 (78-100) fl MCH 29.3 (26-32) pg MCHC 29.8 L (32-36) g/dl RDW 14.1 H (11.5-14.0) % Plt Count 236 (150-450) K/mm3 MPV 9.5 (6-9.5) fl INR 1.02 (0.8-3.0) Sodium 141 (136-145) mEq/L Potassium 4.4 (3.5-5.1) mEq/L Chloride 104 (98-107) mEq/L Carbon Dioxide 30.4 (21-32) mEq/L Anion Gap 11.3 (5-15) MEQ/L BUN 22 H (9-20) mg/dL Creatinine 1.11 (0.55-1.30) mg/dl Estimated GFR > 60 ML/MIN Glucose 169 H (70-110) MG/DL Calcium 8.5 (8.5-10.1) mg/dL Total Bilirubin (0.2-1.0) mg/dL AST (15-37) U/L ALT (12-78) U/L Alkaline Phosphatase (46-116) U/L Serum Total Protein (6.4-8.2) gm/dL Albumin (3.4-5.0) g/dL 06/05/16 06/05/16 Range/Units 05:20 05:20 WBC 9.0 (4.0-10.5) K/mm3 RBC 3.69 L (4.1-5.6) M/mm3 Hgb 10.8 L (12.5-18.0) gm/dl Hct 36.6 L (42-50) % MCV 99.2 (78-100) fl MCH 29.2 (26-32) pg MCHC 29.5 L (32-36) g/dl RDW 14.1 H (11.5-14.0) % Plt Count 222 (150-450) K/mm3 MPV 9.1 (6-9.5) fl INR (0.8-3.0) Sodium 140 (136-145) mEq/L Potassium 4.5 (3.5-5.1) mEq/L Chloride 104 (98-107) mEq/L Carbon Dioxide 29.4 (21-32) mEq/L Anion Gap 10.8 (5-15) MEQ/L BUN 24 H (9-20) mg/dL Creatinine 1.01 (0.55-1.30) mg/dl Estimated GFR > 60 ML/MIN Glucose 148 H (70-110) MG/DL Calcium 8.4 L (8.5-10.1) mg/dL Total Bilirubin 0.2 (0.2-1.0) mg/dL AST 21 (15-37) U/L ALT 27 (12-78) U/L Alkaline Phosphatase 79 (46-116) U/L Serum Total Protein 5.7 L (6.4-8.2) gm/dL Albumin 2.4 L (3.4-5.0) g/dL Radiology Exams: Radiology Procedures Category Date Time Status CHEST WITH CONTRAST [CT] Routine Exams 06/03/16 10:49 Completed 1. Nonoccluding pulmonary emboli in the segmental branches of the left upper and left lower lobes. No distal infarct. 2. Right middle and left lower lobe subsegmental atelectasis. 3. Solitary gallstone. Assessment/Plan (1) Pulmonary embolism and infarction Current Visit: Yes Status: Acute Assessment & Plan: Last Vital Signs Temp 98.3 F 06/05/16 05:00 Pulse 79 06/05/16 07:00 Resp 22 06/05/16 07:00 BP 123/77 06/05/16 05:00 Pulse Ox 97 06/05/16 07:00 Allergies No Known Drug Allergies Allergy (Verified 06/02/16 06:11) Active Medications Acetaminophen (Tylenol 325 Mg) 650 mg PO Q4H PRN PRN PRN Reason: PAIN AND/OR FEVER Stop: 07/02/16 08:47 Albuterol/Ipratropium (Duoneb 0.5-3 Mg/3 Ml Neb) 3 ml IH Q4HPRN PRN PRN Reason: SHORTNESS OF BREATH/WHEEZING Stop: 07/02/16 08:47 Albuterol/Ipratropium (Duoneb 0.5-3 Mg/3 Ml Neb) 3 ml IH Q4HRT JOSELITO Stop: 07/02/16 10:59 Last Admin: 06/05/16 07:30 Dose: 3 ml Aspirin (Ecotrin 81 Mg) 81 mg PO DAILY JOSELITO Stop: 07/02/16 13:59 Last Admin: 06/04/16 10:39 Dose: 81 mg Enoxaparin Sodium (Enoxaparin Sodium) 120 mg SQ Q12H JO[facility]O Stop: 07/03/16 21:59 Last Admin: 06/04/16 22:35 Dose: 120 mg Ceftriaxone Sodium/Dextrose (Rocephin 1 Gm-D5w 50 Ml Bag) 50 mls @ 100 mls/ hr IV Q24H22 JOSELITO Stop: 07/02/16 21:59 Last Admin: 06/04/16 22:35 Dose: 100 mls/hr Sodium Chloride (Sodium Chloride 0.9% 1000 Ml) 1,000 mls @ 100 mls/hr IV .Q10H [facility] Stop: 07/02/16 08:47 Last Admin: 06/04/16 21:00 Dose: 100 mls/hr Levofloxacin/Dextrose (Levofloxacin 750mg/150ml D5w) 150 mls @ 100 mls/hr IV Q24H [facility]O Stop: 07/02/16 13:59 Last Admin: 06/04/16 14:23 Dose: 100 mls/hr Insulin Aspart (Novolog Insulin) 0 unit SQ UD PRN PRN Reason: HYPERGLYCEMIA Stop: 07/02/16 08:47 Last Admin: 06/03/16 13:30 Dose: 2 unit Lorazepam (Ativan 2 Mg/1 Ml Vial) 0.5 mg IV Q4H PRN PRN PRN Reason: ANXIETY Stop: 07/02/16 18:24 Methylprednisolone Sodium Succinate (Solu-Medrol 40 Mg) 40 mg IV Q8HT [facility] Stop: 07/02/16 13:59 Last Admin: 06/05/16 06:35 Dose: 40 mg Ondansetron HCl (Zofran 4 Mg/2 Ml Vial) 4 mg IV Q6HT [facility] Stop: 07/04/16 17:59 Last Admin: 06/05/16 06:38 Dose: Not Given Oxycodone/Acetaminophen (Oxycodone-Acetaminophen 10-325) 1 tab PO Q4H PRN PRN PRN Reason: PAIN Stop: 06/07/16 13:10 Last Admin: 06/04/16 14:34 Dose: 1 tab Pantoprazole Sodium (Protonix 40 Mg Iv) 40 mg IV Q24H [facility] Stop: 07/04/16 17:29 Last Admin: 06/04/16 17:53 Dose: 40 mg Promethazine HCl (Phenergan 25 Mg Inj) 25 mg IM Q4H PRN PRN PRN Reason: NAUSEA/VOMITING Stop: 07/04/16 17:20 Fluticasone/Salmeterol (Advair Hfa 230/21 Mcg Common Canister*) 2 puff IH BIDRT [facility] Stop: 07/02/16 06:59 Last Admin: 06/05/16 07:30 Dose: 2 puff Intake & Output 06/04/16 06/05/16 11:59 12:59 Intake Total 3915 4171 Output Total 3175 1325 Balance 740 2846 Lab Tests 06/04/16 06/04/16 06/04/16 09:25 09:25 09:25 WBC 10.7 H RBC 3.99 L Hgb 11.7 L Hct 39.3 L MCV 98.5 MCH 29.3 MCHC 29.8 L RDW 14.1 H Plt Count 236 MPV 9.5 INR 1.02 Sodium 141 Potassium 4.4 Chloride 104 Carbon Dioxide 30.4 Anion Gap 11.3 BUN 22 H Creatinine 1.11 Estimated GFR > 60 Glucose 169 H Calcium 8.5 Total Bilirubin AST ALT Alkaline Phosphatase Serum Total Protein Albumin 06/05/16 06/05/16 05:20 05:20 WBC 9.0 RBC 3.69 L Hgb 10.8 L Hct 36.6 L MCV 99.2 MCH 29.2 MCHC 29.5 L RDW 14.1 H Plt Count 222 MPV 9.1 INR Sodium 140 Potassium 4.5 Chloride 104 Carbon Dioxide 29.4 Anion Gap 10.8 BUN 24 H Creatinine 1.01 Estimated GFR > 60 Glucose 148 H Calcium 8.4 L Total Bilirubin 0.2 AST 21 ALT 27 Alkaline Phosphatase 79 Serum Total Protein 5.7 L Albumin 2.4 L Microbiology 06/02/16 09:30 Sputum - Expectorant Gram Stain - Final 06/02/16 09:30 Sputum - Expectorant Sputum Culture - Final ORGANISMS ISOLATED ARE CONSISTENT WITH NORMAL RESP SIS MODERATE GROWTH, NO PREDOMINANT ORGANISM 06/02/16 06:21 Blood Blood Culture - Preliminary NO GROWTH TO DATE 06/02/16 06:15 Blood Blood Culture - Preliminary NO GROWTH TO DATE Chief Complaint Diagnosis Shortness of Breath Allergies Allergy/AdvReac Type Severity Reaction Status Date / Time No Known Drug Allergies Allergy Verified 06/02/16 06:11 Vital Signs (Last 24 hours) Temp Pulse Resp BP Pulse Ox 06/05/16 07:00 79 22 97 06/05/16 06:10 98 06/05/16 05:00 98.3 F 73 20 123/77 97 06/05/16 03:14 80 18 98 06/04/16 23:30 98.3 F 93 H 18 122/79 96 06/04/16 23:01 75 20 95 06/04/16 20:00 98.6 F 84 19 122/72 97 06/04/16 16:00 98.4 F 108 H 14 146/92 94 L 06/04/16 12:00 98.8 F 105 H 21 128/78 97 06/04/16 08:00 98.7 F 114 H 20 124/77 95 Home Medications Medication Instructions Recorded Confirmed Last Taken Type Oxycodone HCl/Acetaminophen 1 each PO Q4HPRN PRN 06/02/16 06/02/16 06/01/16 History [Percocet 10-325 mg Tablet] Current Medications Generic Name Dose Route Start Last Admin Trade Name Freq PRN Reason Stop Dose Admin Acetaminophen 650 mg 06/02/16 08:48 Tylenol 325 Mg PO 07/02/16 08:47 Q4H PRN PRN PAIN AND/OR FEVER Albuterol/Ipratropium 3 ml 06/02/16 08:48 Duoneb 0.5-3 Mg/3 Ml Neb IH 07/02/16 08:47 Q4HPRN PRN SHORTNESS OF BREATH/WHEEZING Albuterol/Ipratropium 3 ml 06/02/16 11:00 06/05/16 07:30 Duoneb 0.5-3 Mg/3 Ml Neb IH 07/02/16 10:59 3 ml Q4HRT JOSELITO Administration Aspirin 81 mg 06/02/16 14:00 06/04/16 10:39 Ecotrin 81 Mg PO 07/02/16 13:59 81 mg DAILY JOSELITO Administration Enoxaparin Sodium 120 mg 06/03/16 22:00 06/04/16 22:35 Enoxaparin Sodium SQ 07/03/16 21:59 120 mg Q12H JOSELITO Administration Ceftriaxone Sodium/Dextrose 50 mls @ 100 mls/hr 06/02/16 22:00 06/04/16 22:35 Rocephin 1 Gm-D5w 50 Ml Bag IV 07/02/16 21:59 100 mls/hr Q24H22 JOSELITO Administration Sodium Chloride 1,000 mls @ 100 mls/hr 06/02/16 08:48 06/04/16 21:00 Sodium Chloride 0.9% 1000 Ml IV 07/02/16 08:47 100 mls/hr .Q10H JOSELITO Administration Levofloxacin/Dextrose 150 mls @ 100 mls/hr 06/02/16 14:00 06/04/16 14:23 Levofloxacin 750mg/150ml D5w IV 07/02/16 13:59 100 mls/hr Q24H JOSELITO Administration Insulin Aspart 0 unit 06/02/16 08:48 06/03/16 13:30 Novolog Insulin SQ 07/02/16 08:47 2 unit UD PRN Administration HYPERGLYCEMIA Lorazepam 0.5 mg 06/02/16 18:25 Ativan 2 Mg/1 Ml Vial IV 07/02/16 18:24 Q4H PRN PRN ANXIETY Methylprednisolone Sodium Succinate 40 mg 06/02/16 14:00 06/05/16 06:35 Solu-Medrol 40 Mg IV 07/02/16 13:59 40 mg Q8HT JOSELITO Administration Ondansetron HCl 4 mg 06/04/16 18:00 06/05/16 06:38 Zofran 4 Mg/2 Ml Vial IV 07/04/16 17:59 Not Given Q6HT JOSELITO Oxycodone/Acetaminophen 1 tab 06/02/16 13:11 06/04/16 14:34 Oxycodone-Acetaminophen 10-325 PO 06/07/16 13:10 1 tab Q4H PRN PRN Administration PAIN Pantoprazole Sodium 40 mg 06/04/16 17:30 06/04/16 17:53 Protonix 40 Mg Iv IV 07/04/16 17:29 40 mg Q24H JOSELITO Administration Promethazine HCl 25 mg 06/04/16 17:21 Phenergan 25 Mg Inj IM 07/04/16 17:20 Q4H PRN PRN NAUSEA/VOMITING Fluticasone/Salmeterol 2 puff 06/02/16 07:00 06/05/16 07:30 Advair Hfa 230/21 Mcg Common Canister* IH 07/02/16 06:59 2 puff BIDRT JOSELITO Administration Discontinued Medications Generic Name Dose Route Start Last Admin Trade Name Freq PRN Reason Stop Dose Admin Acetaminophen 975 mg 06/02/16 06:28 06/02/16 07:32 Feverall 650 Mg DC 06/02/16 06:29 Not Given STAT ONE Acetaminophen Confirm 06/02/16 06:30 Feverall 650 Mg Administered 06/02/16 06:31 Dose 650 mg .ROUTE .STK-MED ONE Acetaminophen Confirm 06/02/16 06:30 Feverall 325 Mg Administered 06/02/16 06:31 Dose 325 mg .ROUTE .STK-MED ONE Acetaminophen 325 mg 06/02/16 07:21 06/02/16 06:40 Feverall 325 Mg DC 06/02/16 07:22 325 mg STAT STA Administration Acetaminophen 650 mg 06/02/16 07:21 06/02/16 06:40 Feverall 650 Mg DC 06/02/16 07:22 650 mg STAT ONE Administration Albuterol Sulfate 2.5 mg 06/02/16 06:00 06/02/16 06:30 Proventil 2.5 Mg/3 Ml Neb IH 06/02/16 06:01 2.5 mg STAT ONE Administration Albuterol Sulfate Confirm 06/02/16 06:29 Proventil 2.5 Mg/3 Ml Neb Administered 06/02/16 06:30 Dose 2.5 mg IH .STK-MED ONE Albuterol/Ipratropium Confirm 06/02/16 10:19 Duoneb 0.5-3 Mg/3 Ml Neb Administered 06/02/16 10:20 Dose 3 ml IH .STK-MED ONE Enoxaparin Sodium 40 mg 06/02/16 14:00 06/03/16 09:23 Enoxaparin Sodium SQ 07/02/16 13:59 40 mg DAILY JOSELITO Administration Furosemide 20 mg 06/02/16 18:25 06/02/16 23:12 Lasix 20 Mg/2 Ml IV 06/02/16 18:26 Not Given ONCE ONE Hydroxyzine HCl 25 mg 06/02/16 14:00 06/04/16 09:09 Atarax 25 Mg PO 07/02/16 13:59 25 mg BID JOSELITO Administration Sodium Chloride 1,000 mls @ 100 mls/hr 06/02/16 06:15 06/02/16 06:08 Sodium Chloride 0.9% 1000 Ml IV 07/02/16 06:14 100 mls/hr .Q10H [facility]SELITO Administration Sodium Chloride Confirm 06/02/16 06:07 Sodium Chloride 0.9% 1000 Ml Administered 06/02/16 06:08 Dose 1,000 mls @ ud .ROUTE .STK-MED ONE Ceftriaxone Sodium/Dextrose 50 mls @ 100 mls/hr 06/02/16 06:29 06/02/16 06:53 Rocephin 1 Gm-D5w 50 Ml Bag IV 06/02/16 06:58 100 mls/hr STAT ONE Administration Ceftriaxone Sodium/Dextrose Confirm 06/02/16 06:41 Rocephin 1 Gm-D5w 50 Ml Bag Administered 06/02/16 06:42 Dose 50 mls @ ud IV .STK-MED ONE Sodium Chloride 1,000 mls @ 999 mls/hr 06/02/16 06:56 06/02/16 07:32 Sodium Chloride 0.9% 1000 Ml IV 06/02/16 07:56 999 mls/hr .Q1H1M STA Administration Sodium Chloride 1,000 mls @ 999 mls/hr 06/02/16 07:01 06/02/16 09:40 Sodium Chloride 0.9% 1000 Ml IV 06/02/16 08:01 999 mls/hr .Q1H1M STA Administration Sodium Chloride Confirm 06/02/16 07:04 Sodium Chloride 0.9% 1000 Ml Administered 06/02/16 07:05 Dose 1,000 mls @ ud .ROUTE .STK-MED ONE Azithromycin 250 mls @ 125 mls/hr 06/02/16 10:00 06/02/16 10:11 Zithromax 500 Mg/ 250 Ml Nacl Premix IV 07/02/16 09:59 125 mls/hr Q24H10 JOSELITO Administration Lorazepam 2 mg 06/03/16 10:49 06/03/16 12:06 Ativan 2 Mg/1 Ml Vial IV 06/03/16 10:50 2 mg STAT ONE Administration Ondansetron HCl 4 mg 06/02/16 08:48 06/04/16 15:11 Zofran 4 Mg/2 Ml Vial IV 07/02/16 08:47 4 mg Q6H PRN PRN Administration NAUSEA/VOMITING Intake & Output (Last 24 hours) 06/02/16 06/03/16 06/04/16 06/05/16 11:59 11:59 11:59 12:59 Intake Total 5553 3915 4171 Output Total 2400 3175 1325 Balance 3153 930 2846 Weight 118.189 kg Microbiology Results (Last 24 hours) 06/02/16 09:30 Sputum - Expectorant Gram Stain - Final 06/02/16 09:30 Sputum - Expectorant Sputum Culture - Final ORGANISMS ISOLATED ARE CONSISTENT WITH NORMAL RESP SIS MODERATE GROWTH, NO PREDOMINANT ORGANISM 06/02/16 06:21 Blood - Pending 06/02/16 06:21 Blood Blood Culture - Preliminary NO GROWTH TO DATE 06/02/16 06:15 Blood - Pending 06/02/16 06:15 Blood Blood Culture - Preliminary NO GROWTH TO DATE Laboratory Results (Last 24 hours) 06/05/16 06/05/16 06/04/16 05:20 05:20 09:25 WBC 9.0 RBC 3.69 L Hgb 10.8 L Hct 36.6 L MCV 99.2 MCH 29.2 MCHC 29.5 L RDW 14.1 H Plt Count 222 MPV 9.1 INR 1.02 Sodium 140 Potassium 4.5 Chloride 104 Carbon Dioxide 29.4 Anion Gap 10.8 BUN 24 H Creatinine 1.01 Estimated GFR > 60 Glucose 148 H Calcium 8.4 L Total Bilirubin 0.2 AST 21 ALT 27 Alkaline Phosphatase 79 Serum Total Protein 5.7 L Albumin 2.4 L 06/04/16 06/04/16 09:25 09:25 WBC 10.7 H RBC 3.99 L Hgb 11.7 L Hct 39.3 L MCV 98.5 MCH 29.3 MCHC 29.8 L RDW 14.1 H Plt Count 236 MPV 9.5 INR Sodium 141 Potassium 4.4 Chloride 104 Carbon Dioxide 30.4 Anion Gap 11.3 BUN 22 H Creatinine 1.11 Estimated GFR > 60 Glucose 169 H Calcium 8.5 Total Bilirubin AST ALT Alkaline Phosphatase Serum Total Protein Albumin Orders (Last 24 hours) Category Date Time Status BMP Urgent Lab 06/04/16 09:25 Completed CBC AM.LAB Lab 06/05/16 05:20 Completed CBC Urgent Lab 06/04/16 09:25 Completed CMP AM.LAB Lab 06/05/16 05:20 Completed PROTIME WITH INR Urgent Lab 06/04/16 09:25 Completed Ondansetron HCl 4 mg/2 ml [Zofran 4 MG/2 ML VIAL] Med 06/04/16 18:00 Active 4 mg IV Q6HT Pantoprazole 40 mg [Protonix 40 mg IV] Med 06/04/16 17:30 Active 40 mg IV Q24H Promethazine HCl 25 mg Amp [Phenergan 25 MG INJ] Med 06/04/16 17:21 Active 25 mg IM Q4H PRN PRN Patient Care Notes (Last 24 hours) Code(s): I26.99 - OTHER PULMONARY EMBOLISM WITHOUT ACUTE COR PULMONALE (2) Acute exacerbation of chronic obstructive bronchitis Current Visit: Yes Status: Acute Code(s): J44.1 - CHRONIC OBSTRUCTIVE PULMONARY DISEASE W (ACUTE) EXACERBATION (3) HTN (hypertension) Current Visit: No Status: Chronic Qualifiers: Hypertension type: essential hypertension Qualified Code(s): I10 - Essential (primary) hypertension Code(s): I10 - ESSENTIAL (PRIMARY) HYPERTENSION
[2016-06-05] MEDS: OXYCODONE-ACETAMINOPHEN 10-325 PO PRN ×2 (09:56→18:43)
[2016-06-05] MEDS: ECOTRIN 81 MG PO SCH (09:56)
[2016-06-05] MEDS: ENOXAPARIN SODIUM SQ SCH ×2 (09:57→22:28)
[2016-06-05] MEDS: Sodium Chloride 0.9% 1000 ML 1,000 ML IV SCH ×2 (09:57→22:22)
[2016-06-05] MEDS: LEVOFLOXACIN 750MG/150ML D5W 150 ML IV SCH (14:19)
[2016-06-05] MEDS: PROTONIX 40 MG IV IV SCH (17:21)
[2016-06-05] MEDS: ROCEPHIN 1 Gm-D5w 50 ml Bag** 50 ML IV SCH (22:22)
[2016-06-06] MEDS: Zofran 4 MG/2 ML VIAL IV SCH ×4 (00:25→16:38)
[2016-06-06] MEDS: DUONEB 0.5-3 MG/3 ml Neb IH SCH ×6 (03:28→23:24)
[2016-06-06] MEDS: solu-MEDROL 40 MG IV SCH ×3 (06:12→21:43)
[2016-06-06] MEDS: Advair Hfa 230/21 Mcg COMMON CANISTER IH SCH ×2 (06:36→19:29)
--- NOTE | 2016-06-06 07:42 | PROG NOTE ---
DATE: 06/04/2016 Chart is reviewed and events noted. After obtaining CT scan, the patient was placed on full dose anticoagulation with Lovenox. Earlier this morning he had some nosebleed. At the time of this evaluation he is alert, awake, and comfortable. He states his shortness of breath is better, complains of cough, complains of mild nausea from antibiotic. PHYSICAL EXAMINATION: VITAL SIGNS: Blood pressure 128/78, heart rate 100, respiratory rate 20, temperature 98.8F. Oxygen saturation 95% on oxygen by mask. HEENT: Pallor or icterus is noted. NECK: No JVD is present. CVS: S1, S2 present. RESPIRATORY: Breath sounds are bilaterally diminished, occasional rhonchi present. ABDOMEN: Obese, soft, nontender. NEURO: He is alert, oriented x3. EXTREMITIES: No edema on bilateral lower extremities. LABORATORY DATA AND TESTS: Labs from today show CBC with white blood cell 10.7, hemoglobin 11.7, hematocrit 39.3, PLT 236,000. International normalized ratio 1.02. BMP showed glucose 169, BUN 22, creatinine 1.11. CT chest from yesterday showed limited examination due to respiration artifact, nonoccluding pulmonary emboli in segmental branch of left upper and left lower lobe. Right middle and lower lobe subsegmental atelectasis. Solitary gallstone. Venous Doppler from yesterday was negative for deep venous thrombosis in bilateral lower extremities. Medications were reviewed. ASSESSMENT: A 56 year old male with impression: 1) Pulmonary embolism. 2) Chronic obstructive pulmonary disease with exacerbation. 3) Pneumonia. 4) History of elevated D-dimer. 5) Chronic respiratory failure. 6) Chronic pain syndrome. 7) Hyperlipidemia. 8) Obesity. PLAN: I have discussed with patient regarding the patient's CT scan results, benefits and risks of full dose anticoagulation including but not limited to increased risk of GI bleeding, etc. After understanding the benefits and risks, the patient is agreed with taking oral hypoglycemic agent and has opted for oral anticoagulant. Will start Xarelto starting tomorrow. The patient appears to be clinically improving and overall is hemodynamically stable, will transfer him out of ICU. Continue broad spectrum IV antibiotics, continue to follow CBC, BMP and chest x-ray. The patient's clinical condition, work-up results and plan of management were discussed with him. He seems to be in understanding and agreement. Discussed with patient's nurse, Drew.
[2016-06-06] MEDS ORDERED: PHARMACY DOSING REQUEST MC ONE (09:37)
[2016-06-06] MEDS: ECOTRIN 81 MG PO SCH (10:24)
[2016-06-06] MEDS: OXYCODONE-ACETAMINOPHEN 10-325 PO PRN ×2 (10:24→21:45)
[2016-06-06] MEDS: XARELTO 10 MG TABLET PO SCH ×2 (10:25→16:36)
[2016-06-06] MEDS: Sodium Chloride 0.9% 1000 ML 1,000 ML IV SCH ×2 (10:26→21:42)
--- NOTE | 2016-06-06 12:59 | PCM.NOTE ---
Date and Time: 06/06/16 1258 Subjective Assessment: doing better, few episode of nose bleed - Review of Systems Constitutional: No Fever, No Chills Eyes: No Symptoms Ears, Nose, & Throat: No Symptoms Respiratory: Cough, Wheezing, No Short Of Breath Cardiac: No Chest Pain, No Edema, No Syncope Abdominal/Gastrointestinal: No Abdominal Pain, No Nausea, No Vomiting, No Diarrhea Genitourinary Symptoms: No Dysuria Musculoskeletal: No Back Pain, No Neck Pain Skin: No Rash Neurological: No Dizziness, No Focal Weakness, No Sensory Changes Psychological: No Symptoms Endocrine: No Symptoms Hematologic/Lymphatic: No Symptoms Immunological/Allergic: No Symptoms Objective Exam General Appearance: no apparent distress, alert Neurologic Exam: alert, oriented x 3, cooperative, normal mood/affect, nml cerebellar function, sensation nml, No motor deficits Skin Exam: normal color, warm, dry Eye Exam: PERRL, EOMI, eyes nml inspection Ears, Nose, Throat Exam: normal ENT inspection, pharynx normal, moist mucous membranes Neck Exam: normal inspection, non-tender, supple, full range of motion Respiratory Exam: diminished breath sounds, crackles/rales, rhonchi, No respiratory distress Cardiovascular Exam: regular rate/rhythm, normal heart sounds Gastrointestinal/Abdomen Exam: soft, No tenderness, No mass Extremity Exam: normal inspection, normal range of motion Back Exam: normal inspection, normal range of motion, No CVA tenderness, No vertebral tenderness Male Genitalia Exam: deferred Rectal Exam: deferred OBJECTIVE DATA Vital Signs: Vital Signs - 24 hr Temp Pulse Resp BP Pulse Ox 06/06/16 12:00 98.0 F 89 16 147/85 95 06/06/16 10:34 81 20 95 06/06/16 07:52 98.5 F 89 24 143/82 92 L 06/06/16 07:00 91 L 06/06/16 06:40 90 18 93 L 06/06/16 04:00 98.4 F 98 H 20 149/82 95 06/06/16 03:00 83 18 93 L 06/06/16 00:00 98.4 F 88 19 149/82 95 06/05/16 22:49 94 H 20 95 06/05/16 20:00 98.7 F 96 H 23 131/74 95 06/05/16 18:59 98.7 F 96 H 21 154/95 94 L 06/05/16 18:42 98 H 18 97 06/05/16 15:00 97.6 F 91 H 15 157/92 93 L Oxygen-Last 24 hours O2 Percentage 5 Liters = 40% O2 Percentage 5 Liters = 40% O2 Percentage 5 Liters = 40% O2 Percentage 5 Liters = 40% O2 Percentage 5 Liters = 40% O2 Percentage 5 Liters = 40% Pain Assessment - Last Documented Pain Intensity 7 Pain Scale Used 0-10 Pain Scale Intake and Output: Intake & Output 06/04/16 06/05/16 06/06/16 06/07/16 10:59 11:59 11:59 11:59 Intake Total 6127 Output Total 2350 Balance 3777 Lab Results: Accuchecks Date 06/06/16 Date 06/06/16 Date 06/06/16 Date 06/05/16 Time 11:34 Time 16:46 Accucheck Value: 131 Accucheck Value: 153 Accucheck Value: 157 Assessment/Plan (1) Pulmonary embolism and infarction Current Visit: Yes Status: Acute Assessment & Plan: Chief Complaint Diagnosis Shortness of Breath Allergies Allergy/AdvReac Type Severity Reaction Status Date / Time No Known Drug Allergies Allergy Verified 06/02/16 06:11 Vital Signs (Last 24 hours) Temp Pulse Resp BP Pulse Ox 06/06/16 12:00 98.0 F 89 16 147/85 95 06/06/16 10:34 81 20 95 06/06/16 07:52 98.5 F 89 24 143/82 92 L 06/06/16 07:00 91 L 06/06/16 06:40 90 18 93 L 06/06/16 04:00 98.4 F 98 H 20 149/82 95 06/06/16 03:00 83 18 93 L 06/06/16 00:00 98.4 F 88 19 149/82 95 06/05/16 22:49 94 H 20 95 06/05/16 20:00 98.7 F 96 H 23 131/74 95 06/05/16 18:59 98.7 F 96 H 21 154/95 94 L 06/05/16 18:42 98 H 18 97 06/05/16 15:00 97.6 F 91 H 15 157/92 93 L Home Medications Medication Instructions Recorded Confirmed Last Taken Type Oxycodone HCl/Acetaminophen 1 each PO Q4HPRN PRN 06/02/16 06/02/16 06/01/16 History [Percocet 10-325 mg Tablet] Current Medications Generic Name Dose Route Start Last Admin Trade Name Freq PRN Reason Stop Dose Admin Acetaminophen 650 mg 06/02/16 08:48 Tylenol 325 Mg PO 07/02/16 08:47 Q4H PRN PRN PAIN AND/OR FEVER Albuterol/Ipratropium 3 ml 06/02/16 08:48 Duoneb 0.5-3 Mg/3 Ml Neb IH 07/02/16 08:47 Q4HPRN PRN SHORTNESS OF BREATH/WHEEZING Albuterol/Ipratropium 3 ml 06/02/16 11:00 06/06/16 10:29 Duoneb 0.5-3 Mg/3 Ml Neb IH 07/02/16 10:59 3 ml Q4HRT JOSELITO Administration Aspirin 81 mg 06/02/16 14:00 06/06/16 10:24 Ecotrin 81 Mg PO 07/02/16 13:59 81 mg DAILY JOSELITO Administration Ceftriaxone Sodium/Dextrose 50 mls @ 100 mls/hr 06/02/16 22:00 06/05/16 22:22 Rocephin 1 Gm-D5w 50 Ml Bag IV 07/02/16 21:59 100 mls/hr Q24H22 JOSELITO Administration Sodium Chloride 1,000 mls @ 100 mls/hr 06/02/16 08:48 06/06/16 10:26 Sodium Chloride 0.9% 1000 Ml IV 07/02/16 08:47 100 mls/hr .Q10H JOSELITO Administration Levofloxacin/Dextrose 150 mls @ 100 mls/hr 06/02/16 14:00 06/05/16 14:19 Levofloxacin 750mg/150ml D5w IV 07/02/16 13:59 100 mls/hr Q24H JOSELITO Administration Insulin Aspart 0 unit 06/02/16 08:48 06/03/16 13:30 Novolog Insulin SQ 07/02/16 08:47 2 unit UD PRN Administration HYPERGLYCEMIA Lorazepam 0.5 mg 06/02/16 18:25 Ativan 2 Mg/1 Ml Vial IV 07/02/16 18:24 Q4H PRN PRN ANXIETY Methylprednisolone Sodium Succinate 40 mg 06/02/16 14:00 06/06/16 06:12 Solu-Medrol 40 Mg IV 07/02/16 13:59 40 mg Q8HT JOSELITO Administration Ondansetron HCl 4 mg 06/04/16 18:00 06/06/16 12:11 Zofran 4 Mg/2 Ml Vial IV 07/04/16 17:59 Not Given Q6HT JOSELITO Oxycodone/Acetaminophen 1 tab 06/02/16 13:11 06/06/16 10:24 Oxycodone-Acetaminophen 10-325 PO 06/07/16 13:10 1 tab Q4H PRN PRN Administration PAIN Pantoprazole Sodium 40 mg 06/04/16 17:30 06/05/16 17:21 Protonix 40 Mg Iv IV 07/04/16 17:29 40 mg Q24H JOSELITO Administration Promethazine HCl 25 mg 06/04/16 17:21 Phenergan 25 Mg Inj IM 07/04/16 17:20 Q4H PRN PRN NAUSEA/VOMITING Fluticasone/Salmeterol 2 puff 06/02/16 07:00 06/06/16 06:36 Advair Hfa 230/21 Mcg Common Canister* IH 07/02/16 06:59 2 puff BIDRT JOSELITO Administration Discontinued Medications Generic Name Dose Route Start Last Admin Trade Name Freq PRN Reason Stop Dose Admin Acetaminophen 975 mg 06/02/16 06:28 06/02/16 07:32 Feverall 650 Mg [place] 06/02/16 06:29 Not Given STAT ONE Acetaminophen Confirm 06/02/16 06:30 Feverall 650 Mg Administered 06/02/16 06:31 Dose 650 mg .ROUTE .STK-MED ONE Acetaminophen Confirm 06/02/16 06:30 Feverall 325 Mg Administered 06/02/16 06:31 Dose 325 mg .ROUTE .STK-MED ONE Acetaminophen 325 mg 06/02/16 07:21 06/02/16 06:40 Feverall 325 Mg SC 06/02/16 07:22 325 mg STAT STA Administration Acetaminophen 650 mg 06/02/16 07:21 06/02/16 06:40 Feverall 650 Mg [place] 06/02/16 07:22 650 mg STAT ONE Administration Albuterol Sulfate 2.5 mg 06/02/16 06:00 06/02/16 06:30 Proventil 2.5 Mg/3 Ml Neb IH 06/02/16 06:01 2.5 mg STAT ONE Administration Albuterol Sulfate Confirm 06/02/16 06:29 Proventil 2.5 Mg/3 Ml Neb Administered 06/02/16 06:30 Dose 2.5 mg IH .STK-MED ONE Albuterol/Ipratropium Confirm 06/02/16 10:19 Duoneb 0.5-3 Mg/3 Ml Neb Administered 06/02/16 10:20 Dose 3 ml IH .STK-MED ONE Enoxaparin Sodium 40 mg 06/02/16 14:00 06/03/16 09:23 Enoxaparin Sodium SQ 07/02/16 13:59 40 mg DAILY JOSELITO Administration Enoxaparin Sodium 120 mg 06/03/16 22:00 06/05/16 22:28 Enoxaparin Sodium SQ 07/03/16 21:59 120 mg Q12H JOSELITO Administration Furosemide 20 mg 06/02/16 18:25 06/02/16 23:12 Lasix 20 Mg/2 Ml IV 06/02/16 18:26 Not Given ONCE ONE Hydroxyzine HCl 25 mg 06/02/16 14:00 06/04/16 09:09 Atarax 25 Mg PO 07/02/16 13:59 25 mg BID JOSELITO Administration Sodium Chloride 1,000 mls @ 100 mls/hr 06/02/16 06:15 06/02/16 06:08 Sodium Chloride 0.9% 1000 Ml IV 07/02/16 06:14 100 mls/hr .Q10H JOSELTIO Administration Sodium Chloride Confirm 06/02/16 06:07 Sodium Chloride 0.9% 1000 Ml Administered 06/02/16 06:08 Dose 1,000 mls @ ud .ROUTE .STK-MED ONE Ceftriaxone Sodium/Dextrose 50 mls @ 100 mls/hr 06/02/16 06:29 06/02/16 06:53 Rocephin 1 Gm-D5w 50 Ml Bag IV 06/02/16 06:58 100 mls/hr STAT ONE Administration Ceftriaxone Sodium/Dextrose Confirm 06/02/16 06:41 Rocephin 1 Gm-D5w 50 Ml Bag Administered 06/02/16 06:42 Dose 50 mls @ ud IV .STK-MED ONE Sodium Chloride 1,000 mls @ 999 mls/hr 06/02/16 06:56 06/02/16 07:32 Sodium Chloride 0.9% 1000 Ml IV 06/02/16 07:56 999 mls/hr .Q1H1M STA Administration Sodium Chloride 1,000 mls @ 999 mls/hr 06/02/16 07:01 06/02/16 09:40 Sodium Chloride 0.9% 1000 Ml IV 06/02/16 08:01 999 mls/hr .Q1H1M STA Administration Sodium Chloride Confirm 06/02/16 07:04 Sodium Chloride 0.9% 1000 Ml Administered 06/02/16 07:05 Dose 1,000 mls @ ud .ROUTE .STK-MED ONE Azithromycin 250 mls @ 125 mls/hr 06/02/16 10:00 06/02/16 10:11 Zithromax 500 Mg/ 250 Ml Nacl Premix IV 07/02/16 09:59 125 mls/hr Q24H10 JOSELITO Administration Lorazepam 2 mg 06/03/16 10:49 06/03/16 12:06 Ativan 2 Mg/1 Ml Vial IV 06/03/16 10:50 2 mg STAT ONE Administration Ondansetron HCl 4 mg 06/02/16 08:48 06/04/16 15:11 Zofran 4 Mg/2 Ml Vial IV 07/02/16 08:47 4 mg Q6H PRN PRN Administration NAUSEA/VOMITING Intake & Output (Last 24 hours) 06/04/16 06/05/16 06/06/16 06/07/16 10:59 11:59 11:59 11:59 Intake Total 6127 Output Total 2350 Balance 3777 Orders (Last 24 hours) Category Date Time Status Rivaroxaban 10 mg Tablet [Xarelto 10 mg Tablet] Med 06/06/16 10:00 Active 15 mg PO BIDWM Patient Care Notes (Last 24 hours) 06/05/16 18:57 Nursing Note by Keara Paul barrier cream applied to L arm per request Initialized on 06/05/16 18:57 - END OF NOTE Code(s): I26.99 - OTHER PULMONARY EMBOLISM WITHOUT ACUTE COR PULMONALE (2) Acute exacerbation of chronic obstructive bronchitis Current Visit: Yes Status: Acute Code(s): J44.1 - CHRONIC OBSTRUCTIVE PULMONARY DISEASE W (ACUTE) EXACERBATION (3) HTN (hypertension) Current Visit: Yes Status: Chronic Qualifiers: Hypertension type: essential hypertension Qualified Code(s): I10 - Essential (primary) hypertension Code(s): I10 - ESSENTIAL (PRIMARY) HYPERTENSION
[2016-06-06] MEDS: LEVOFLOXACIN 750MG/150ML D5W 150 ML IV SCH (13:57)
[2016-06-06] MEDS: PROTONIX 40 MG IV IV SCH (16:36)
[2016-06-06] MEDS: ROCEPHIN 1 Gm-D5w 50 ml Bag** 50 ML IV SCH (21:47)
[2016-06-07] MEDS: Zofran 4 MG/2 ML VIAL IV SCH ×2 (00:56→06:22)
[2016-06-07] MEDS: DUONEB 0.5-3 MG/3 ml Neb IH SCH ×3 (03:00→10:22)
[2016-06-07] MEDS: solu-MEDROL 40 MG IV SCH (06:14)
[2016-06-07] MEDS: Advair Hfa 230/21 Mcg COMMON CANISTER IH SCH (06:35)
[2016-06-07] MEDS: ECOTRIN 81 MG PO SCH (09:37)
[2016-06-07] MEDS: XARELTO 10 MG TABLET PO SCH (09:37)
[2016-06-07 10:12] VITALS: BP 151/86; PULSE 74
[2016-06-07 10:16] VITALS: O2SAT 91
--- NOTE | 2016-06-07 11:55 | PCM.DS ---
Discharge Summary Date of Admission: 06/02/16 08:28 Date of Discharge: // Admitting Physician: MIRIAM KHALIL Consults: Consults on Case 06/03/16 11:31 Nutritional Consult ROUTINE Primary Care Provider: HARPREET BHATIA Allergies Allergies No Known Drug Allergies Allergy (Verified 06/02/16 06:11) Hospital Summary - Hospital Course Hospital Course: Chief Complaint Diagnosis Shortness of Breath Allergies Allergy/AdvReac Type Severity Reaction Status Date / Time No Known Drug Allergies Allergy Verified 06/02/16 06:11 Vital Signs (Last 24 hours) Temp Pulse Resp BP Pulse Ox 06/07/16 10:16 18 91 L 06/07/16 08:00 98.0 F 74 18 151/86 87 L 06/07/16 07:00 74 18 91 L 06/07/16 06:46 97 06/07/16 04:00 97.9 F 60 23 129/86 97 06/07/16 00:00 97.9 F 73 18 154/94 96 06/06/16 20:00 97.6 F 79 21 140/82 94 L 06/06/16 19:00 86 20 94 L 06/06/16 15:47 97.6 F 78 17 140/82 94 L 06/06/16 14:48 82 18 97 06/06/16 12:00 98.0 F 89 16 147/85 95 Home Medications Medication Instructions Recorded Confirmed Last Taken Type Oxycodone HCl/Acetaminophen 1 each PO Q4HPRN PRN 06/02/16 06/02/16 06/01/16 History [Percocet 10-325 mg Tablet] Levofloxacin [Levaquin] 750 mg PO DAILY #2 tablet 06/07/16 Unknown Rx Methylprednisolone Packet 4 mg PO UD #30 packet 06/07/16 Unknown Rx [Medrol Dosepack] Prednisone 10 mg [Deltasone 10 40 mg PO DAILY #0 06/07/16 06/03/16 06/02/16 08:00 Rx mg] Rivaroxaban [Xarelto] 15 mg PO BID #42 tablet 06/07/16 Unknown Rx Rivaroxaban [Xarelto] 20 mg PO DAILY #30 tablet 06/07/16 Unknown Rx Current Medications Generic Name Dose Route Start Last Admin Trade Name Freq PRN Reason Stop Dose Admin Acetaminophen 650 mg 06/02/16 08:48 Tylenol 325 Mg PO 07/02/16 08:47 Q4H PRN PRN PAIN AND/OR FEVER Albuterol/Ipratropium 3 ml 06/02/16 08:48 Duoneb 0.5-3 Mg/3 Ml Neb IH 07/02/16 08:47 Q4HPRN PRN SHORTNESS OF BREATH/WHEEZING Albuterol/Ipratropium 3 ml 06/02/16 11:00 06/07/16 10:22 Duoneb 0.5-3 Mg/3 Ml Neb IH 07/02/16 10:59 3 ml Q4HRT JOSELITO Administration Aspirin 81 mg 06/02/16 14:00 06/07/16 09:37 Ecotrin 81 Mg PO 07/02/16 13:59 Not Given DAILY JOSELITO Ceftriaxone Sodium/Dextrose 50 mls @ 100 mls/hr 06/02/16 22:00 06/06/16 21:47 Rocephin 1 Gm-D5w 50 Ml Bag IV 07/02/16 21:59 100 mls/hr Q24H22 JOSELITO Administration Sodium Chloride 1,000 mls @ 100 mls/hr 06/02/16 08:48 06/06/16 21:42 Sodium Chloride 0.9% 1000 Ml IV 07/02/16 08:47 100 mls/hr .Q10H JOSELITO Administration Levofloxacin/Dextrose 150 mls @ 100 mls/hr 06/02/16 14:00 06/06/16 13:57 Levofloxacin 750mg/150ml D5w IV 07/02/16 13:59 100 mls/hr Q24H JOSELITO Administration Insulin Aspart 0 unit 06/02/16 08:48 06/03/16 13:30 Novolog Insulin SQ 07/02/16 08:47 2 unit UD PRN Administration HYPERGLYCEMIA Lorazepam 0.5 mg 06/02/16 18:25 Ativan 2 Mg/1 Ml Vial IV 07/02/16 18:24 Q4H PRN PRN ANXIETY Methylprednisolone Sodium Succinate 40 mg 06/02/16 14:00 06/07/16 06:14 Solu-Medrol 40 Mg IV 07/02/16 13:59 40 mg Q8HT JOSELITO Administration Ondansetron HCl 4 mg 06/04/16 18:00 06/07/16 06:22 Zofran 4 Mg/2 Ml Vial IV 07/04/16 17:59 Not Given Q6HT JOSELITO Oxycodone/Acetaminophen 1 tab 06/02/16 13:11 06/06/16 21:45 Oxycodone-Acetaminophen 10-325 PO 06/07/16 13:10 1 tab Q4H PRN PRN Administration PAIN Pantoprazole Sodium 40 mg 06/04/16 17:30 06/06/16 16:36 Protonix 40 Mg Iv IV 07/04/16 17:29 40 mg Q24H JOSELITO Administration Promethazine HCl 25 mg 06/04/16 17:21 Phenergan 25 Mg Inj IM 07/04/16 17:20 Q4H PRN PRN NAUSEA/VOMITING Fluticasone/Salmeterol 2 puff 06/02/16 07:00 06/07/16 06:35 Advair Hfa 230/21 Mcg Common Canister* IH 07/02/16 06:59 2 puff BIDRT JOSELITO Administration Discontinued Medications Generic Name Dose Route Start Last Admin Trade Name Freq PRN Reason Stop Dose Admin Acetaminophen 975 mg 06/02/16 06:28 06/02/16 07:32 Feverall 650 Mg [place] 06/02/16 06:29 Not Given STAT ONE Acetaminophen Confirm 06/02/16 06:30 Feverall 650 Mg Administered 06/02/16 06:31 Dose 650 mg .ROUTE .STK-MED ONE Acetaminophen Confirm 06/02/16 06:30 Feverall 325 Mg Administered 06/02/16 06:31 Dose 325 mg .ROUTE .STK-MED ONE Acetaminophen 325 mg 06/02/16 07:21 06/02/16 06:40 Feverall 325 Mg [place] 06/02/16 07:22 325 mg STAT STA Administration Acetaminophen 650 mg 06/02/16 07:21 06/02/16 06:40 Feverall 650 Mg [place] 06/02/16 07:22 650 mg STAT ONE Administration Albuterol Sulfate 2.5 mg 06/02/16 06:00 06/02/16 06:30 Proventil 2.5 Mg/3 Ml Neb IH 06/02/16 06:01 2.5 mg STAT ONE Administration Albuterol Sulfate Confirm 06/02/16 06:29 Proventil 2.5 Mg/3 Ml Neb Administered 06/02/16 06:30 Dose 2.5 mg IH .STK-MED ONE Albuterol/Ipratropium Confirm 06/02/16 10:19 Duoneb 0.5-3 Mg/3 Ml Neb Administered 06/02/16 10:20 Dose 3 ml IH .STK-MED ONE Enoxaparin Sodium 40 mg 06/02/16 14:00 06/03/16 09:23 Enoxaparin Sodium SQ 07/02/16 13:59 40 mg DAILY JOSELITO Administration Enoxaparin Sodium 120 mg 06/03/16 22:00 06/05/16 22:28 Enoxaparin Sodium SQ 07/03/16 21:59 120 mg Q12H JOSELITO Administration Furosemide 20 mg 06/02/16 18:25 06/02/16 23:12 Lasix 20 Mg/2 Ml IV 06/02/16 18:26 Not Given ONCE ONE Hydroxyzine HCl 25 mg 06/02/16 14:00 06/04/16 09:09 Atarax 25 Mg PO 07/02/16 13:59 25 mg BID JOSELITO Administration Sodium Chloride 1,000 mls @ 100 mls/hr 06/02/16 06:15 06/02/16 06:08 Sodium Chloride 0.9% 1000 Ml IV 07/02/16 06:14 100 mls/hr .Q10H JOSELITO Administration Sodium Chloride Confirm 06/02/16 06:07 Sodium Chloride 0.9% 1000 Ml Administered 06/02/16 06:08 Dose 1,000 mls @ ud .ROUTE .STK-MED ONE Ceftriaxone Sodium/Dextrose 50 mls @ 100 mls/hr 06/02/16 06:29 06/02/16 06:53 Rocephin 1 Gm-D5w 50 Ml Bag IV 06/02/16 06:58 100 mls/hr STAT ONE Administration Ceftriaxone Sodium/Dextrose Confirm 06/02/16 06:41 Rocephin 1 Gm-D5w 50 Ml Bag Administered 06/02/16 06:42 Dose 50 mls @ ud IV .STK-MED ONE Sodium Chloride 1,000 mls @ 999 mls/hr 06/02/16 06:56 06/02/16 07:32 Sodium Chloride 0.9% 1000 Ml IV 06/02/16 07:56 999 mls/hr .Q1H1M STA Administration Sodium Chloride 1,000 mls @ 999 mls/hr 06/02/16 07:01 06/02/16 09:40 Sodium Chloride 0.9% 1000 Ml IV 06/02/16 08:01 999 mls/hr .Q1H1M STA Administration Sodium Chloride Confirm 06/02/16 07:04 Sodium Chloride 0.9% 1000 Ml Administered 06/02/16 07:05 Dose 1,000 mls @ ud .ROUTE .STK-MED ONE Azithromycin 250 mls @ 125 mls/hr 06/02/16 10:00 06/02/16 10:11 Zithromax 500 Mg/ 250 Ml Nacl Premix IV 07/02/16 09:59 125 mls/hr Q24H10 JOSELITO Administration Lorazepam 2 mg 06/03/16 10:49 06/03/16 12:06 Ativan 2 Mg/1 Ml Vial IV 06/03/16 10:50 2 mg STAT ONE Administration Ondansetron HCl 4 mg 06/02/16 08:48 06/04/16 15:11 Zofran 4 Mg/2 Ml Vial IV 07/02/16 08:47 4 mg Q6H PRN PRN Administration NAUSEA/VOMITING Intake & Output (Last 24 hours) 06/04/16 06/05/16 06/06/16 06/07/16 10:59 11:59 11:59 11:59 Intake Total 6127 2720 Output Total 2350 1600 Balance 3777 1120 Weight 118.189 kg Microbiology Results (Last 24 hours) 06/02/16 06:21 Blood - Final Not Reportable 06/02/16 06:21 Blood Blood Culture - Final NO GROWTH 06/02/16 06:15 Blood - Final Not Reportable 06/02/16 06:15 Blood Blood Culture - Final NO GROWTH Patient Care Notes (Last 24 hours) 06/06/16 23:38 Nursing Note by Fabiola Núñez skin tear on R arm began bleeding again, drsg changed. charge pt for tegaderm and 2x2 gauze. pt continues to repeatedly remove packing from nose so nose continues to bleed off and on Initialized on 06/06/16 23:38 - END OF NOTE patien was admitted with shortness of breath. Patient was treated for exacerbation of COPD and also has Pulmonary embolism. See rest of the notes for hospital course - Vitals & Intake/Output Vital Signs: Vital Signs Temperature 98.0 F 06/07/16 08:00 Pulse Rate 74 06/07/16 08:00 Respiratory Rate 18 06/07/16 10:16 Blood Pressure 151/86 06/07/16 08:00 O2 Sat by Pulse Oximetry 91 L 06/07/16 10:16 Oxygen-Last Documented O2 Percentage 4 Liters = 36% Intake & Output: Intake & Output 06/04/16 06/05/16 06/06/16 06/07/16 10:59 11:59 11:59 11:59 Intake Total 6127 2720 Output Total 2350 1600 Balance 3777 1120 Weight 118.189 kg - Lab Result Diagrams: 06/05/16 05:20 06/05/16 05:20 Lab Results-Last 24 Hrs: Accuchecks Date 06/07/16 Date 06/06/16 Date 06/06/16 Time 05:00 Time 22:13 Time 16:08 Accucheck Value: 150 Accucheck Value: 168 Micro Results-Entire Visit: Microbiology 06/02/16 09:30 Gram Stain - Final Sputum - Expectorant Sputum Culture - Final ORGANISMS ISOLATED ARE CONSISTENT WITH NORMAL RESP SIS MODERATE GROWTH, NO PREDOMINANT ORGANISM Accuchecks Date 06/07/16 Date 06/06/16 Date 06/06/16 Time 05:00 Time 22:13 Time 16:08 Accucheck Value: 150 Accucheck Value: 168 - Procedures and Test Procedures and Tests throughout Hospitalization: Therapy Orders & Screens 06/02/16 09:31 RT Screen per Nursing Assess ONCE Comment: Protocol Order Physician Instructions: Greater than 3 points order RT Admission Screen Reason For Exam: Triggered on Admission Diagnosis: Shortness of Breath Diagnosis: Shortness of Breath Pneumonia: Yes Home O2: Yes Asthma: No CHF: No Home CPAP/BIPAP: No Home Nebs/MDI: Yes Total Points: 13 Smoking Cessation Education ONCE Comment: Diagnosis: Shortness of Breath Smoking Status: Current every day smoker How long have you smoked: 30YRS Have you smoked in the past 12 months: Yes Approximately how many cigarettes per day: 4 Do you dip or chew tobacco: Yes If,Former Smoker,when did you quit: 3 WEEKS AGO 06/02/16 10:23 Respiratory Nebulizer UD Comment: DUONEB Q4PRN Diagnosis: Shortness of Breath 06/02/16 11:00 Respiratory Nebulizer Q4H Comment: DUONEB Q4 Diagnosis: Shortness of Breath 06/02/16 19:00 Respiratory MDI BID Comment: ADVAIR 230/21 BID Diagnosis: Shortness of Breath Discharge Exam General Appearance: no apparent distress, alert Neurologic Exam: alert, oriented x 3, cooperative, normal mood/affect, nml cerebellar function, sensation nml, No motor deficits Skin Exam: normal color, warm, dry Eye Exam: PERRL, EOMI, eyes nml inspection Ears, Nose, Throat Exam: normal ENT inspection, pharynx normal, moist mucous membranes Neck Exam: normal inspection, non-tender, supple, full range of motion Respiratory Exam: normal breath sounds, lungs clear, No respiratory distress Cardiovascular Exam: regular rate/rhythm, normal heart sounds Gastrointestinal/Abdomen Exam: soft, No tenderness, No mass Extremity Exam: normal inspection, normal range of motion Back Exam: normal inspection, normal range of motion, No CVA tenderness, No vertebral tenderness Male Genitalia Exam: deferred Rectal Exam: deferred Final Diagnosis/Problem List - Final Discharge Diagnosis/Problem (1) Pulmonary embolism and infarction Current Visit: Yes Status: Acute Assessment & Plan: patient will be discharge home with gertrude. follow up with Dr Gianfranco Bhatia in 5 days (2) Acute exacerbation of chronic obstructive bronchitis Current Visit: Yes Status: Resolved (3) HTN (hypertension) Current Visit: Yes Status: Chronic - Discharge Discharge Date: 06/07/16 Disposition: Home, Self-Care Condition: Stable Prescriptions: New Levofloxacin [Levaquin] 750 mg PO DAILY #2 tablet Methylprednisolone Packet [Medrol Dosepack] 4 mg PO UD #30 packet Oxycodone / APAP 10/325 mg [Oxycodone-Acetaminophen 10-325] 1 tab PO Q6HPRN PRN #30 tablet PRN Reason: Pain Continue Hydroxyzine HCl 25 mg [Atarax 25 mg] 25 mg PO BID Pravastatin Sodium 20 mg PO HS Aspirin [Aspirin EC] 81 mg PO DAILY Budesonide/Formoterol Fumarate [Symbicort 160-4.5 Mcg Inhaler] 10.2 gm IH BID Albuterol Sulfate [Proair Hfa] 8.5 gm IH Q4HPRN PRN PRN Reason: COPD Lisinopril/Hydrochlorothiazide [Lisinopril-Hctz 10-12.5 mg Tab] 1 each PO DAILY Metoprolol Tartrate 25 mg [Lopressor 25MG Tab] 1 tab PO BID Albuterol 2.5 mg/3 ml Neb [Proventil 2.5 mg/3 ml Neb] 1 inh IH Q4- 6HPRN PRN PRN Reason: Shortness Of Breath Oxycodone HCl/Acetaminophen [Percocet 10-325 mg Tablet] 1 each PO Q4HPRN PRN PRN Reason: Pain Prednisone 10 mg [Deltasone 10 mg] 40 mg PO DAILY #0 Rivaroxaban [Xarelto] 15 mg PO BID #42 tablet Rivaroxaban [Xarelto] 20 mg PO DAILY #30 tablet Instructions: Chronic Obstructive Pulmonary Disease, Pneumonia -- Adult, Pulmonary Embolism, Nosebleed, Quit Smoking Additional Instructions: [facility] WILL CALL YOU TO ARRANGE YOUR FIRST VISIT. YOU MAY REACH THEM AT ext [phone]. Follow up with: HARPREET BHATIA MD [Primary Care Provider] - 06/15/16 10:30 am ([facility]ICE) Forms: Discharge Instructions
== END 2016-06-07 13:30 | disposition home or self-care (01) | DRG 175 ==
LOC: ED 05:52 → ICU 08:28
PROVIDERS: ADMIT General Practice; ATTEND General Practice
DX: I26.99 Other pulmonary embolism without acute cor pulmonale (principal); J18.8 Other pneumonia, unspecified organism; J44.1 Chronic obstructive pulmonary disease with (acute) exacerbation; J96.10 Chronic respiratory failure, unspecified whether with hypoxia or hypercapnia; E87.2 Acidosis; I11.0 Hypertensive heart disease with heart failure; I50.9 Heart failure, unspecified; G89.4 Chronic pain syndrome; F45.42 Pain disorder with related psychological factors; E78.5 Hyperlipidemia, unspecified; Z96.642 Presence of left artificial hip joint; Z72.0 Tobacco use; I95.9 Hypotension, unspecified; E66.9 Obesity, unspecified; Z98.890 Other specified postprocedural states
CPT/HCPCS: 36415; 36600; 71010; 71260; 80048; 80053; 82375; 82803; 82805; 82962; 83036; 83605; 83880; 84484; 85025; 85027; 85379; 85610; 87040; 87070; 93005; 93041; 93970; 94002; 94003; 94640; 96360; 96361; 96365; 99285; J0456; J0696; J1650; J1956; J2060; J2405; J2920

== ENCOUNTER 2022-04-08 23:05 | Emergency (ER) | payer MEDICARE ==
--- NOTE | 2022-04-08 23:16 | ERPHSYRPT ---
- History of Present Illness Historian: patient, EMS Exam Limitations: clinical condition Timing/Duration: today Activities at Onset: rest Quality: cramping, sharpness Abdominal Pain Onset Location: RUQ Pain Radiation: flank, shoulder Severity of Pain-Max: severe Severity of Pain-Current: mild Modifying Factors: Improves With: analgesics, palpation. Worsens With: eating Associated Symptoms: back, diaphoresis, fever/chills, nausea, shortness of breath, No chest pain, No diarrhea, No vomiting Hx Tetanus, Diphtheria Vaccination/Date Given: Yes Hx Influenza Vaccination/Date Given: No Hx Pneumococcal Vaccination/Date Given: No <SIMA BRITO - Last Filed: 04/09/22 07:06> <KRISTINA BELL - Last Filed: 04/09/22 13:46> - History of Present Illness Time Seen by Provider: 04/08/22 23:16 Physician History: Hx limited by patient condition s/p IV Fentanyl. C/o abdominal pain for the past several months. Location: RUQ radiating to right flank Patient reports hx of gallbladder disease Constant, 06/03 after IV pain meds in route to ED Described as: colic. Worsens with food. Endorses fever, chills, nausea, constipation and dysuria but denies vomiting, hematuria. (SIMA BRITO) Allergies/Adverse Reactions: No Known Drug Allergies Allergy (Verified 04/08/22 23:07) Home Medications: Albuterol Sulfate [Proair Hfa] 2 puff IH Q6H 08/06/15 [History] Budesonide/Formoterol Fumarate [Symbicort 160-4.5 Mcg Inhaler] 2 puff IH BID 08/06/15 [History] Pravastatin Sodium 40 mg PO HS 08/06/15 [History] Metoprolol Tartrate 25 mg [Lopressor 25MG Tab] 1 tab PO BID 02/02/16 [History] Furosemide [Lasix] 20 mg PO DAILY 01/01/20 [History] Hydrocodone/APAP 10/325 mg [[place] 10/325 MG Tablet] 1 tab PO Q6H PRN PRN 01/01/20 [History] Metformin HCl 500 mg [Glucophage 500 MG] 500 mg PO BIDWM 01/01/20 [History] Prednisone 10 mg [Deltasone 10 mg] 5 mg PO DAILY 01/01/20 [History] lisinopriL [Lisinopril] 2.5 mg PO DAILY 01/01/20 [History] - Review of Systems Constitutional: Fever, Chills, Lethargy, Weakness Respiratory: No Cough Cardiac: No Chest Pain Abdominal/Gastrointestinal: Abdominal Pain, Nausea, Constipation, No Vomiting, No Diarrhea, No Hematemesis, No Hematochezia, No Melena Genitourinary Symptoms: Dysuria, Frequency, Urgency, Flank Pain, No Hematuria Skin: No Symptoms <SIMA BRITO - Last Filed: 04/09/22 07:06> - Past Medical History Pertinent Past Medical History: Yes Neurological History: No Pertinent History ENT History: No Pertinent History Cardiac History: Hypertension, Other Respiratory History: Asthma, COPD Endocrine Medical History: No Pertinent History Musculoskeletal History: No Pertinent History GI Medical History: No Pertinent History History: No Pertinent History Psycho-Social History: Anxiety Male Reproductive Disorders: No Pertinent History Other Medical History: 2L oxygen 24/7 - Past Surgical History Past Surgical History: Yes Neuro Surgical History: No Pertinent History Cardiac: Cardiac Catheterization Respiratory: No Pertinent History Gastrointestinal: No Pertinent History Genitourinary: No Pertinent History Musculoskeletal: Joint Replacement, Orthopedic Surgery Male Surgical History: No Pertinent History Other Surgical History: left hip replacement, 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, 2016 - Social History Smoking Status: Former smoker How long have you smoked: 30YRS Exposure to second hand smoke: Yes (occassionally) Drug Use: none Patient Lives Alone: No <SIMA BRITO - Last Filed: 04/09/22 07:06> - Physical Exam General Appearance: lethargy Eye Exam: eyes nml inspection Ears, Nose, Throat Exam: normal ENT inspection Neck Exam: normal inspection, non-tender, full range of motion Respiratory Exam: diminished breath sounds, wheezing, No chest tenderness, No respiratory distress Cardiovascular Exam: tachycardia, capillary refill <2 sec, No murmur Gastrointestinal/Abdomen Exam: soft, normal bowel sounds, tenderness, guarding, No distention, No ecchymosis, No rebound Back Exam: CVA tenderness (right) Extremity Exam: normal inspection, No swelling Neurologic Exam: cooperative, disoriented Skin Exam: normal color, warm, diaphoresis SpO2 Interpretation: normal O2 Delivery: Nasal Cannula (3L) <SIMA BRITO - Last Filed: 04/09/22 07:06> - Nursing Vital Signs Nursing Vital Signs: Initial Vital Signs Temperature 102.5 F 04/08/22 23:08 Pulse Rate 87 04/08/22 23:08 Respiratory Rate 22 04/08/22 23:08 Blood Pressure 135/71 04/08/22 23:08 O2 Sat by Pulse Oximetry 100 04/08/22 23:08 Pain Scale Pain Intensity 2 - Course Nursing assessment & vital signs reviewed: Yes EKG Interpreted by Me: RATE ([id number]), Sinus Tach, NORMAL AXIS, NORMAL INTERVALS, NORMAL ST-T, Other (low voltage precordial leads) - Radiology Exams Chest X-ray Interpretation: Interpreted by me, Infiltrates (RLL infiltrate vs atelectasis) - CT Exams Abdomen/Pelvis CT Interpretation: Other (R hydronephrosis w/ obstructive 4mm calculus at the right UVJ. Mild R perinephric and R periureteral fat stranding w/ R ureteral urothelial enhancement. ) Chest CT Interpretation: No PE, Other (mild b/l upper and lower lobe bronchial wall thickening) <SIMA BRITO - Last Filed: 04/09/22 07:06> Ordered Tests: Active Orders 24 hr Category Date Time Status Financial Systems Manager STAT Care 04/08/22 23:27 Active EKG-ER Only STAT Care 04/08/22 23:26 Active IV Insertion STAT Care 04/08/22 23:26 Active NPO (ED) STAT Care 04/08/22 23:30 Active Oxygen-ED Only Nasal Cannula 3 lpm Care 04/08/22 23:26 Active Pulse Oximetry (ED) STAT Care 04/08/22 23:26 Active ABDOMEN AND PELVIS W CONTRAST [CT] Routine Exams 04/09/22 00:40 Completed CHEST 1 VIEW (PORTABLE) Routine Exams 04/09/22 00:35 Completed CHEST WITH CONTRAST [CT] Stat Exams 04/09/22 01:21 Completed BLOOD CULTURE Stat Lab 04/08/22 23:27 Received CBC W DIFF Stat Lab 04/08/22 23:50 Completed CBC W DIFF Stat Lab 04/09/22 13:33 Ordered CMP Stat Lab 04/08/22 23:50 Completed CMP Stat Lab 04/09/22 13:33 Ordered D-DIMER QUANTITATIVE Stat Lab 04/09/22 00:01 Completed FECAL OCCULT BLOOD - SCREENING Stat Lab 04/08/22 23:32 Ordered LIPASE Stat Lab 04/08/22 23:50 Completed Lactic Acid Stat Lab 04/08/22 23:26 Completed MAGNESIUM Stat Lab 04/08/22 23:50 Completed PHOSPHOROUS Stat Lab 04/08/22 23:50 Completed PROCALCITONIN Stat Lab 04/08/22 23:50 Completed PROTIME WITH INR Stat Lab 04/08/22 23:50 Completed PTT Stat Lab 04/08/22 23:50 Completed TROPONIN Q4H Lab 04/08/22 23:50 Completed Respiratory Therapy Assessment DAILY RT 04/09/22 03:04 Active Medication Summary Generic Name Dose Route Start Last Admin Trade Name Freq PRN Reason Stop Dose Admin Magnesium Sulfate/Dextrose 100 mls @ 100 mls/hr 04/09/22 00:45 04/09/22 02:29 Magnesium 1 Gm / 100 Ml D5w IV 04/09/22 02:44 100 mls/hr Q1H JOSELITO Administration Sodium Chloride 1,000 mls @ 125 mls/hr 04/09/22 11:15 04/09/22 11:41 Sodium Chloride 0.9% 1000 Ml IV 05/09/22 11:14 125 mls/hr .Q8H JOSELITO Administration Norepinephrine/Dextrose 8 mg in 250 mls @ 15 mls/hr 04/09/22 11:33 04/09/22 12:24 Norepinephrine 8 Mg/250 Ml-D5w IV 05/09/22 11:32 8 mcg/min .[id number] PRN 15 mls/hr HYPOTENSION Administration Protocol 8 MCG/MIN Morphine Sulfate 4 mg 04/09/22 01:54 Morphine Sulfate 4 Mg/Ml Injection IV 04/14/22 01:53 Q2H PRN PRN PAIN Discontinued Medications Generic Name Dose Route Start Last Admin Trade Name Freq PRN Reason Stop Dose Admin Acetaminophen 975 mg 04/08/22 23:26 04/08/22 23:45 Acetaminophen 325 Mg Tablet PO 04/08/22 23:27 975 mg STAT STA Administration Acetaminophen Confirm 04/08/22 23:43 Acetaminophen 325 Mg Tablet Administered 04/08/22 23:44 Dose 975 mg .ROUTE .STK-MED ONE Acetaminophen Confirm 04/09/22 05:25 Acetaminophen 325 Mg Tablet Administered 04/09/22 05:26 Dose 650 mg .ROUTE .STK-MED ONE Acetaminophen 650 mg 04/09/22 05:28 04/09/22 05:30 Acetaminophen 325 Mg Tablet PO 04/09/22 05:29 650 mg STAT STA Administration Acetaminophen 325 mg 04/09/22 07:55 04/09/22 08:03 Acetaminophen 325 Mg Tablet PO 04/09/22 07:56 325 mg STAT ONE Administration Acetaminophen Confirm 04/09/22 08:01 Acetaminophen 325 Mg Tablet Administered 04/09/22 08:02 Dose 325 mg .ROUTE .STK-MED ONE Albuterol/Ipratropium 3 ml 04/09/22 03:00 04/09/22 04:39 Ipratropium/Albuterol Sulfate 3 Ml Ampul.Neb 05/09/22 02:59 Not Given Q4HRT JOSELITO Albuterol/Ipratropium Confirm 04/09/22 02:56 Ipratropium/Albuterol Sulfate 3 Ml Ampul.Neb Administered 04/09/22 02:57 Dose 3 ml IH .STK-MED ONE Albuterol/Ipratropium 3 ml 04/09/22 03:02 04/09/22 03:03 Ipratropium/Albuterol Sulfate 3 Ml Ampul.Neb 04/09/22 03:03 3 ml STAT ONE Administration Sodium Chloride 1,000 mls @ 999 mls/hr 04/08/22 23:26 04/09/22 00:52 Sodium Chloride 0.9% 1000 Ml IV 04/09/22 00:26 Infused .Q1H1M STA Infusion Piperacillin Sod/Tazobactam 100 mls @ 200 mls/hr 04/08/22 23:26 04/09/22 00:03 Sod 3.375 gm/ Sodium Chloride IV 04/08/22 23:55 200 mls/hr STAT ONE Administration Vancomycin HCl 1 gm in 200 mls @ 125 mls/hr 04/08/22 23:26 04/09/22 02:48 Vancomycin 1 Gram/200 Ml Bag IV 04/09/22 01:01 Infused STAT ONE Infusion Sodium Chloride Confirm 04/08/22 23:43 Sodium Chloride 0.9% 1000 Ml Administered 04/08/22 23:44 Dose 1,000 mls @ ud .ROUTE .STK-MED ONE Sodium Chloride Confirm 04/08/22 23:55 Sodium Chloride 100ml Mini-Bag Plus Administered 04/08/22 23:56 Dose 100 mls @ ud IV .STK-MED ONE Vancomycin HCl Confirm 04/09/22 00:32 Vancomycin 1 Gram/200 Ml Bag Administered 04/09/22 00:33 Dose 1 gm in 200 mls @ ud IV .STK-MED ONE Sodium Chloride 1,000 mls @ 999 mls/hr 04/09/22 05:09 04/09/22 06:24 Sodium Chloride 0.9% 1000 Ml IV 04/09/22 06:09 Infused .Q1H1M STA Infusion Sodium Chloride Confirm 04/09/22 05:16 Sodium Chloride 0.9% 1000 Ml Administered 04/09/22 05:17 Dose 1,000 mls @ ud .ROUTE .STK-MED ONE Sodium Chloride 1,000 mls @ 999 mls/hr 04/09/22 05:29 04/09/22 07:55 Sodium Chloride 0.9% 1000 Ml IV 04/09/22 06:29 Infused .Q1H1M STA Infusion Piperacillin Sod/Tazobactam 100 mls @ 200 mls/hr 04/09/22 06:21 04/09/22 06:28 Sod 3.375 gm/ Sodium Chloride IV 04/09/22 06:50 200 mls/hr STAT ONE Administration Sodium Chloride Confirm 04/09/22 06:25 Sodium Chloride 100ml Mini-Bag Plus Administered 04/09/22 06:26 Dose 100 mls @ ud IV .STK-MED ONE Sodium Chloride Confirm 04/09/22 06:25 Sodium Chloride 0.9% 1000 Ml Administered 04/09/22 06:26 Dose 1,000 mls @ ud .ROUTE .STK-MED ONE Sodium Chloride 1,000 mls @ 500 mls/hr 04/09/22 07:58 04/09/22 10:13 Sodium Chloride 0.9% 1000 Ml IV 04/09/22 09:57 Infused .Q2H STA Infusion Sodium Chloride Confirm 04/09/22 08:01 Sodium Chloride 0.9% 1000 Ml Administered 04/09/22 08:02 Dose 1,000 mls @ ud .ROUTE .STK-MED ONE Dopamine HCl/Dextrose 250 mls @ 19.838 mls/hr 04/09/22 11:12 Dopamine 400 Mg/D5w 250ml Premix IV 05/09/22 11:11 .[id number] PRN SEVERE HYPOTENSION Protocol 5 MCG/KG/MIN Ibuprofen 400 mg 04/09/22 07:55 04/09/22 08:03 Ibuprofen 400 Mg Tablet PO 04/09/22 07:56 400 mg STAT ONE Administration Ibuprofen Confirm 04/09/22 08:01 Ibuprofen 400 Mg Tablet Administered 04/09/22 08:02 Dose 400 mg .ROUTE .STK-MED ONE Ondansetron HCl 4 mg 04/08/22 23:26 04/08/22 23:45 Ondansetron Hcl 4 Mg/2 Ml Vial IV 04/08/22 23:27 4 mg STAT ONE Administration Ondansetron HCl Confirm 04/08/22 23:43 Ondansetron Hcl 4 Mg/2 Ml Vial Administered 04/08/22 23:44 Dose 4 mg .ROUTE .STK-MED ONE Pantoprazole Sodium 40 mg 04/08/22 23:30 04/08/22 23:45 Pantoprazole 40 Mg Vial IV 04/08/22 23:31 40 mg STAT ONE Administration Pantoprazole Sodium Confirm 04/08/22 23:43 Pantoprazole 40 Mg Vial Administered 04/08/22 23:44 Dose 40 mg IV .STK-MED ONE Piperacillin Sod/Tazobactam Sod Confirm 04/08/22 23:54 Piperacillin/Tazobactam Sodium 3.375 Gm Vial Administered 04/08/22 23:55 Dose 3.375 gm IV .STK-MED ONE Piperacillin Sod/Tazobactam Sod Confirm 04/09/22 06:24 Piperacillin/Tazobactam Sodium 3.375 Gm Vial Administered 04/09/22 06:25 Dose 3.375 gm IV .STK-MED ONE Sucralfate 1 g 04/08/22 23:30 04/08/22 23:45 Sucralfate 1 G Tablet PO 04/08/22 23:31 1 g STAT ONE Administration Sucralfate Confirm 04/08/22 23:43 Sucralfate 1 G Tablet Administered 04/08/22 23:44 Dose 1 g PO .STK-MED ONE Lab/Rad Data: Laboratory Result Diagrams 04/08/22 23:50 04/08/22 23:50 Laboratory Results 04/09/22 04/09/22 04/09/22 Range/Units 02:33 00:03 00:01 WBC (4.0-10.5) x10^3/uL RBC (4.1-5.6) x10^6/uL Hgb (12.5-18.0) g/dL Hct (42-50) % MCV (78-100) fL MCH (26-32) pg MCHC (32-36) g/dL RDW (11.5-14.0) % Plt Count (150-450) x10^3/uL MPV (7.5-11.0) fL Gran % (36.0-66.0) % Immature Gran % (Auto) (0.00-0.4) % Nucleat RBC Rel Count (0.00-0.1) % Eos # (Auto) (0-0.5) x10^3/uL Immature Gran # (Auto) (0.00-0.03) x10^3u/L Absolute Lymphs (auto) (1.0-4.6) x10^3/uL Absolute Monos (auto) (0.0-1.3) x10^3/uL Absolute Nucleated RBC (0.00-0.01) x10^3u/L Lymphocytes % (24.0-44.0) % Monocytes % (0.0-12.0) % Eosinophils % (0.00-5.0) % Basophils % (0.0-0.4) % Absolute Granulocytes (1.4-6.9) x10^3/uL Basophils # (0-0.4) x10^3/uL PT (9.4-12.5) SECONDS INR (0.8-3.0) APTT (25.1-36.5) SECONDS D-Dimer 0.94 H* (0.0-0.50) mg/L Sodium (137-145) mmol/L Potassium (3.5-5.1) mmol/L Chloride (98-107) mmol/L Carbon Dioxide (22-30) mmol/L Anion Gap (5-15) MEQ/L BUN (9-20) mg/dL Creatinine (0.66-1.25) mg/dL Estimated GFR ML/MIN Glucose (74-106) mg/dL Lactic Acid 1.2 (0.4-2.0) Calcium (8.4-10.2) mg/dL Phosphorus (2.5-4.5) mg/dL Magnesium (1.6-2.3) mg/dL Total Bilirubin (0.2-1.3) mg/dL AST (17-59) U/L ALT (0-50) U/L Alkaline Phosphatase (38-126) U/L Troponin I (0.000-0.034) ng/mL Serum Total Protein (6.3-8.2) g/dL Albumin (3.5-5.0) g/dL Lipase (23-300) U/L Procalcitonin (0.030-0.080) ng/mL Urine Color (Yellow) Urine Appearance (Clear) Urine pH (4.6-8.0) Ur Specific [place] (1.005-1.030) Urine Protein (Negative) Urine Glucose (UA) (Negative) mg/dL Urine Ketones (Negative) Urine Blood (Negative) Urine Nitrite (Negative) Urine Bilirubin (Negative) Urine Urobilinogen (0.2) mg/dL Ur Leukocyte Esterase (Negative) U Hyaline Cast (Auto) (0-2) /LPF Urine Microscopic RBC (0-5) /HPF Urine Microscopic WBC (0-5) /HPF Ur Epithelial Cells (None Seen) /HPF Urine Bacteria (None Seen) /HPF Urine Culture Reflexed (NO) Nasal Screen MRSA (PCR) NOT DETECTED Influenza Type A Ag (NEGATIVE) Influenza Type B Ag (NEGATIVE) RSV (PCR) (Negative) SARS-CoV-2 (PCR) (NEGATIVE) 04/09/22 04/08/22 04/08/22 Range/Units 00:00 23:50 23:50 WBC (4.0-10.5) x10^3/uL RBC (4.1-5.6) x10^6/uL Hgb (12.5-18.0) g/dL Hct (42-50) % MCV (78-100) fL MCH (26-32) pg MCHC (32-36) g/dL RDW (11.5-14.0) % Plt Count (150-450) x10^3/uL MPV (7.5-11.0) fL Gran % (36.0-66.0) % Immature Gran % (Auto) (0.00-0.4) % Nucleat RBC Rel Count (0.00-0.1) % Eos # (Auto) (0-0.5) x10^3/uL Immature Gran # (Auto) (0.00-0.03) x10^3u/L Absolute Lymphs (auto) (1.0-4.6) x10^3/uL Absolute Monos (auto) (0.0-1.3) x10^3/uL Absolute Nucleated RBC (0.00-0.01) x10^3u/L Lymphocytes % (24.0-44.0) % Monocytes % (0.0-12.0) % Eosinophils % (0.00-5.0) % Basophils % (0.0-0.4) % Absolute Granulocytes (1.4-6.9) x10^3/uL Basophils # (0-0.4) x10^3/uL PT (9.4-12.5) SECONDS INR (0.8-3.0) APTT (25.1-36.5) SECONDS D-Dimer (0.0-0.50) mg/L Sodium (137-145) mmol/L Potassium (3.5-5.1) mmol/L Chloride (98-107) mmol/L Carbon Dioxide (22-30) mmol/L Anion Gap (5-15) MEQ/L BUN (9-20) mg/dL Creatinine (0.66-1.25) mg/dL Estimated GFR ML/MIN Glucose (74-106) mg/dL Lactic Acid (0.4-2.0) Calcium (8.4-10.2) mg/dL Phosphorus 2.7 (2.5-4.5) mg/dL Magnesium 1.5 L (1.6-2.3) mg/dL Total Bilirubin (0.2-1.3) mg/dL AST (17-59) U/L ALT (0-50) U/L Alkaline Phosphatase (38-126) U/L Troponin I < 0.012 (0.000-0.034) ng/mL Serum Total Protein (6.3-8.2) g/dL Albumin (3.5-5.0) g/dL Lipase 29 (23-300) U/L Procalcitonin (0.030-0.080) ng/mL Urine Color (Yellow) Urine Appearance (Clear) Urine pH (4.6-8.0) Ur Specific [place] (1.005-1.030) Urine Protein (Negative) Urine Glucose (UA) (Negative) mg/dL Urine Ketones (Negative) Urine Blood (Negative) Urine Nitrite (Negative) Urine Bilirubin (Negative) Urine Urobilinogen (0.2) mg/dL Ur Leukocyte Esterase (Negative) U Hyaline Cast (Auto) (0-2) /LPF Urine Microscopic RBC (0-5) /HPF Urine Microscopic WBC (0-5) /HPF Ur Epithelial Cells (None Seen) /HPF Urine Bacteria (None Seen) /HPF Urine Culture Reflexed (NO) Nasal Screen MRSA (PCR) Influenza Type A Ag NEGATIVE (NEGATIVE) Influenza Type B Ag NEGATIVE (NEGATIVE) RSV (PCR) NEGATIVE (Negative) SARS-CoV-2 (PCR) NEGATIVE (NEGATIVE) 04/08/22 04/08/22 04/08/22 Range/Units 23:50 23:50 23:50 WBC (4.0-10.5) x10^3/uL RBC (4.1-5.6) x10^6/uL Hgb (12.5-18.0) g/dL Hct (42-50) % MCV (78-100) fL MCH (26-32) pg MCHC (32-36) g/dL RDW (11.5-14.0) % Plt Count (150-450) x10^3/uL MPV (7.5-11.0) fL Gran % (36.0-66.0) % Immature Gran % (Auto) (0.00-0.4) % Nucleat RBC Rel Count (0.00-0.1) % Eos # (Auto) (0-0.5) x10^3/uL Immature Gran # (Auto) (0.00-0.03) x10^3u/L Absolute Lymphs (auto) (1.0-4.6) x10^3/uL Absolute Monos (auto) (0.0-1.3) x10^3/uL Absolute Nucleated RBC (0.00-0.01) x10^3u/L Lymphocytes % (24.0-44.0) % Monocytes % (0.0-12.0) % Eosinophils % (0.00-5.0) % Basophils % (0.0-0.4) % Absolute Granulocytes (1.4-6.9) x10^3/uL Basophils # (0-0.4) x10^3/uL PT 10.5 (9.4-12.5) SECONDS INR 0.99 (0.8-3.0) APTT 26.6 (25.1-36.5) SECONDS D-Dimer (0.0-0.50) mg/L Sodium 131 L (137-145) mmol/L Potassium 4.5 (3.5-5.1) mmol/L Chloride 93 L (98-107) mmol/L Carbon Dioxide 34 H (22-30) mmol/L Anion Gap 7.6 (5-15) MEQ/L BUN 16 (9-20) mg/dL Creatinine 1.36 H (0.66-1.25) mg/dL Estimated GFR 57.0 ML/MIN Glucose 118 H (74-106) mg/dL Lactic Acid (0.4-2.0) Calcium 8.9 (8.4-10.2) mg/dL Phosphorus (2.5-4.5) mg/dL Magnesium (1.6-2.3) mg/dL Total Bilirubin 0.70 (0.2-1.3) mg/dL AST 22 (17-59) U/L ALT 21 (0-50) U/L Alkaline Phosphatase 52 (38-126) U/L Troponin I (0.000-0.034) ng/mL Serum Total Protein 7.2 (6.3-8.2) g/dL Albumin 4.1 (3.5-5.0) g/dL Lipase (23-300) U/L Procalcitonin 0.170 H (0.030-0.080) ng/mL Urine Color (Yellow) Urine Appearance (Clear) Urine pH (4.6-8.0) Ur Specific [place] (1.005-1.030) Urine Protein (Negative) Urine Glucose (UA) (Negative) mg/dL Urine Ketones (Negative) Urine Blood (Negative) Urine Nitrite (Negative) Urine Bilirubin (Negative) Urine Urobilinogen (0.2) mg/dL Ur Leukocyte Esterase (Negative) U Hyaline Cast (Auto) (0-2) /LPF Urine Microscopic RBC (0-5) /HPF Urine Microscopic WBC (0-5) /HPF Ur Epithelial Cells (None Seen) /HPF Urine Bacteria (None Seen) /HPF Urine Culture Reflexed (NO) Nasal Screen MRSA (PCR) Influenza Type A Ag (NEGATIVE) Influenza Type B Ag (NEGATIVE) RSV (PCR) (Negative) SARS-CoV-2 (PCR) (NEGATIVE) 04/08/22 04/08/22 Range/Units 23:50 02:00 WBC 11.5 H (4.0-10.5) x10^3/uL RBC 4.45 (4.1-5.6) x10^6/uL Hgb 12.8 (12.5-18.0) g/dL Hct 41.8 L (42-50) % MCV 93.9 (78-100) fL MCH 28.8 (26-32) pg MCHC 30.6 L (32-36) g/dL RDW 13.5 (11.5-14.0) % Plt Count 199 (150-450) x10^3/uL MPV 9.3 (7.5-11.0) fL Gran % 84.5 H (36.0-66.0) % Immature Gran % (Auto) 0.3 (0.00-0.4) % Nucleat RBC Rel Count 0.0 (0.00-0.1) % Eos # (Auto) 0.04 (0-0.5) x10^3/uL Immature Gran # (Auto) 0.04 H (0.00-0.03) x10^3u/L Absolute Lymphs (auto) 0.69 L (1.0-4.6) x10^3/uL Absolute Monos (auto) 1.00 (0.0-1.3) x10^3/uL Absolute Nucleated RBC 0.00 (0.00-0.01) x10^3u/L Lymphocytes % 6.0 L (24.0-44.0) % Monocytes % 8.7 (0.0-12.0) % Eosinophils % 0.3 (0.00-5.0) % Basophils % 0.2 (0.0-0.4) % Absolute Granulocytes 9.69 H (1.4-6.9) x10^3/uL Basophils # 0.02 (0-0.4) x10^3/uL PT (9.4-12.5) SECONDS INR (0.8-3.0) APTT (25.1-36.5) SECONDS D-Dimer (0.0-0.50) mg/L Sodium (137-145) mmol/L Potassium (3.5-5.1) mmol/L Chloride (98-107) mmol/L Carbon Dioxide (22-30) mmol/L Anion Gap (5-15) MEQ/L BUN (9-20) mg/dL Creatinine (0.66-1.25) mg/dL Estimated GFR ML/MIN Glucose (74-106) mg/dL Lactic Acid (0.4-2.0) Calcium (8.4-10.2) mg/dL Phosphorus (2.5-4.5) mg/dL Magnesium (1.6-2.3) mg/dL Total Bilirubin (0.2-1.3) mg/dL AST (17-59) U/L ALT (0-50) U/L Alkaline Phosphatase (38-126) U/L Troponin I (0.000-0.034) ng/mL Serum Total Protein (6.3-8.2) g/dL Albumin (3.5-5.0) g/dL Lipase (23-300) U/L Procalcitonin (0.030-0.080) ng/mL Urine Color Yellow (Yellow) Urine Appearance Turbid A (Clear) Urine pH 5.5 (4.6-8.0) Ur Specific [place] 1.025 (1.005-1.030) Urine Protein 100 A (Negative) Urine Glucose (UA) Negative (Negative) mg/dL Urine Ketones Negative (Negative) Urine Blood Large A (Negative) Urine Nitrite Positive A (Negative) Urine Bilirubin Negative (Negative) Urine Urobilinogen 0.2 (0.2) mg/dL Ur Leukocyte Esterase Large A (Negative) U Hyaline Cast (Auto) NONE SEEN (0-2) /LPF Urine Microscopic RBC 11-20 A (0-5) /HPF Urine Microscopic WBC >100 A (0-5) /HPF Ur Epithelial Cells Rare (None Seen) /HPF Urine Bacteria Many A (None Seen) /HPF Urine Culture Reflexed YES (NO) Nasal Screen MRSA (PCR) Influenza Type A Ag (NEGATIVE) Influenza Type B Ag (NEGATIVE) RSV (PCR) (Negative) SARS-CoV-2 (PCR) (NEGATIVE) - Progress Progress: unchanged Discussed with Dr.: Other ([facility]) Will see patient in: other (accepts transfer to [place] for stent placement) Counseled pt/family regarding: lab results, diagnosis, rad results <SIMA BRITO - Last Filed: 04/09/22 07:06> <KRISTINA BELL - Last Filed: 04/09/22 13:46> - Progress Progress Note: D-dimer obtained due to hx of PE and current tachypnea, SOB and right sided abd/chest pain. D-dimer came back elevated so CT chest w/ contrast ordered to r/o PE. Patient reports 8/10 pain on re-evaluation, no change in abdominal exam. Mg 1.5 so 2g MgSO4 given. CXR showed possible RLL infiltrate. CT chest/abd/pelvis pending. 04/09/22 01:55 UA nitrite positive, large LE, >100 wbc, many bacteria, rbcs will send for cx, received vanc/zosyn. CT abd/pelvis r hydronephrosis w/ obstructing 4mm stone at the r UVJ CT chest showed no PE and b/l upper and lower lobe bronchial wall thickening Discussed case w/ Dr. Joel, urologist at [facility] who accepts patient for transfer in order to place a ureteral stent. [facility] bed control to call when bed made available. MRSA screen neg, no need to continue Vanc coverage Continue Zosyn at this time. 04/09/22 04:58 Spoke w/ Dr. Johansen hospitalist at [facility] who accepts transfer med/surg w/ tele accomodation. 04/09/22 05:08 2nd liter of NS ordered. 04/09/22 05:19 MAP over the past 10 mins has been <65, will order additional liter of NS. If no response will consider adding pressure support. 04/09/22 05:30 2nd dose of zosyn ordered 04/09/22 06:22 Patient signed out to Dr. Bell. 04/09/22 07:07 (SIMA BRITO) 04/09/22 11:13 Medical decision making: This patient has urosepsis with a right ureteral stone obstruction and evidence of hydronephrosis. Patient has had 4 L of normal saline. His fever is now improving his heart rate is decreasing. However his systolic blood pressure is in the 70s to 80s. We will provide him with renal dose dopamine. We have contacted [facility] several times awaiting bed placement. The urologist and hospitalist who have accepted the patient were recently contacted and they are discharging patients from their hospital and the patient will soon be transferred to their facility. We are starting the fifth liter of normal saline fluid at 125 mL/h. It is not time for the next dose of the patient's Zosyn antibiotic. Patient is feeling better. Patient was reexamined. 04/09/22 11:40 We have opted to change from dopamine to Levophedlow-dose to provide pressor support for this patient's low blood pressure. 04/09/22 13:01 Medical decision making: This patient's hospital emergency room stay is becoming more complex in terms of the time that he is spending here because we were awaiting transfer to [facility] who accepted the patient for surgical intervention. The patient is uroseptic. The hospital was aware of this at the time they accepted him in transfer. However the beds are just opening up. They do not have intensive care unit bed at this time. Patient's blood pressure, despite 4 L of intravenous fluids and intravenous antibiotics, is still running in the high 70s to low 80s. We have opted to put him on Levophed drip at a low rate. He is still in the 80s. However, he states he is feeling better and his heart rate is improving as is his temperature. Since we started the Levophed drip, and I feel the patient was in need of this pressure support, [facility] is now declined to take the patient because they do not have an ICU bed. We will work on contacting a facility in [place]. 04/09/22 13:44 Medical decision making: [facility] in [place] declined admission. After reviewing the patient history, physical findings, vital signs, report of results of labs and radiographic studies, Dr. Chin declined transfer/admission to their facility because there are no intensive care unit beds that the patient now requires. We then put a call to [facility] and spoke with urologist Dr. Pierson and hospitalist Dr. Sparks. I again reviewed the patient history, physical findings, EKG results, radiographic studies and lab results with both these physicians. Dr. Sparks accepts the patient in transfer. They are aware of the patient is on a Levophed drip. The patient is clinically improving. (KRISTINA BELL) - Departure Departure Disposition: Transfer ([facility]) Critical Care Time: Yes Critical Care Time(excluding separately billable procedures): Critical 30-74 mins <SIMA BRITO - Last Filed: 04/09/22 07:06> - Departure Critical Care Time(excluding separately billable procedures): Critical 75-104 mins (80 minutes) <KRISTINA BELL - Last Filed: 04/09/22 13:46> - Departure Clinical Impression: Sepsis secondary to UTI, Hydronephrosis with urinary obstruction due to ureteral calculus, Hypomagnesemia, Right flank pain, RUQ abdominal pain Condition: Serious Referrals: HARPREET BHATIA MD [Primary Care Provider] - Follow up/PCP as directed Instructions: Renal Colic
[2022-04-08] MEDS ORDERED: Zofran 4 MG/2 ML VIAL IV ONE (23:26)
[2022-04-08] MEDS ORDERED: TYLENOL 325 MG PO STA (23:26)
[2022-04-08] MEDS ORDERED: PIPERACILLIN/TAZOBACTAM 3.375 GM in Sodium Chloride 100ML MINI-BAG PLUS 100 ML IV ONE (23:26)
[2022-04-08] MEDS ORDERED: Sodium Chloride 0.9% 1000 ML 1,000 ML IV STA (23:26)
[2022-04-08] MEDS ORDERED: VANCOMYCIN 1 GRAM/200 ML BAG 1 GM/200 ML PIGGYBACK IV ONE (23:26)
[2022-04-08] MEDS ORDERED: Carafate 1 GM PO ONE ×2 (23:30→23:43)
[2022-04-08] MEDS ORDERED: PROTONIX 40 MG IV IV ONE ×2 (23:30→23:43)
[2022-04-08] MEDS ORDERED: Sodium Chloride 0.9% 1000 ML 1,000 ML ONE (23:43)
[2022-04-08] MEDS ORDERED: Zofran 4 MG/2 ML VIAL ONE (23:43)
[2022-04-08] MEDS ORDERED: TYLENOL 325 MG ONE (23:43)
[2022-04-08] MEDS ORDERED: PIPERACILLIN/TAZOBACTAM IV ONE (23:54)
[2022-04-08] MEDS ORDERED: Sodium Chloride 100ML MINI-BAG PLUS 100 ML IV ONE (23:55)
[2022-04-09 00:08] LABS: Absolute Neutrophil Ct (ANC) 9.69 x10^3/uL (1.4-6.9); Basophil (Absolute #) 0.02 x10^3/uL (0-0.4); Eosinophil % 0.3 % (0.00-5.0); Eosinophil (Absolute #) 0.04 x10^3/uL (0-0.5); Hematocrit 41.8 % (42-50); Hemoglobin 12.8 g/dL (12.5-18.0); Lymphocyte (Absolute #) 0.69 x10^3/uL (1.0-4.6); Mean Cell Volume 93.9 fL (78-100); Mean Corpuscular Hemoglobin 28.8 pg (26-32); Mean Corpuscular Hgb Concent. 30.6 g/dL (32-36); Mean Platelet Volume 9.3 fL (7.5-11.0); Monocytes % 8.7 % (0.0-12.0); Neutrophil % 84.5 % (36.0-66.0); Platelet Count 199 x10^3/uL (150-450); Red Blood Count 4.45 x10^6/uL (4.1-5.6); Red Cell Distribution Width 13.5 % (11.5-14.0); White Blood Count 11.5 x10^3/uL (4.0-10.5)
[2022-04-09 00:25] LABS: ALBUMIN 4.1 g/dL (3.5-5.0); ANION GAP 7.6 MEQ/L (5-15); BILIRUBIN,TOTAL 0.7 mg/dL (0.2-1.3); Calcium 8.9 mg/dL (8.4-10.2); Creatinine 1 1.36 mg/dL (0.66-1.25); LIPASE 29 U/L (23-300); Potassium 4.5 mmol/L (3.5-5.1); Total Protein 7.2 g/dL (6.3-8.2)
[2022-04-09 00:26] LABS: INR 0.99 (0.8-3.0); MAGNESIUM 1.5 mg/dL (1.6-2.3); PHOSPHOROUS 2.7 mg/dL (2.5-4.5); PROTIME 10.5 SECONDS (9.4-12.5); PTT 26.6 SECONDS (25.1-36.5)
[2022-04-09] MEDS ORDERED: VANCOMYCIN 1 GRAM/200 ML BAG 1 GM/200 ML PIGGYBACK IV ONE (00:32)
[2022-04-09 00:38] LABS: TROPONIN < 0.012 ng/mL (0.000-0.034)
[2022-04-09 01:03] LABS: INFLUENZA A NEGATIVE (NEGATIVE); INFLUENZA B NEGATIVE (NEGATIVE); RESPIRATORY SYNCTIAL VIRUS NEGATIVE (Negative); SARS-CoV-2 Xpert Express NEGATIVE (NEGATIVE)
[2022-04-09] MEDS ORDERED: Magnesium 1 Gm / 100 Ml D5W*** 100 ML IV ONE ×2 (01:06→02:28)
[2022-04-09] MEDS: Magnesium 1 Gm / 100 Ml D5W*** 100 ML IV SCH ×2 (01:10→02:29)
[2022-04-09] MEDS ORDERED: MORPHINE SULFATE 4 MG INJ IV PRN (01:54)
[2022-04-09] MEDS ORDERED: DUONEB 0.5-3 MG/3 ml Neb IH ONE ×2 (02:56→03:02)
[2022-04-09] MEDS ORDERED: DUONEB 0.5-3 MG/3 ml Neb IH SCH (03:00)
[2022-04-09 04:24] LABS: Appearance Turbid (Clear); Bilirubin Negative (Negative); Blood Large (Negative); Epithelial Cells Rare /HPF (None Seen); Glucose, Urine Negative (Negative); Hyaline Casts NONE SEEN /LPF (0-2); Ketones Negative (Negative); Leukocyte Esterase Large (Negative); Nitrite Positive (Negative); Ph 5.5 (4.6-8.0); Protein,Urine Dip 100 (Negative); Specific Gravity 1.025 (1.005-1.030); Urobilinogen 0.2 mg/dL (0.2); WBC >100 /HPF (0-5)
[2022-04-09 04:25] LABS: ADD URINE CULTURE? YES (NO); Bacteria Many /HPF (None Seen)
[2022-04-09] MEDS ORDERED: Sodium Chloride 0.9% 1000 ML 1,000 ML IV STA ×3 (05:09→07:58)
[2022-04-09] MEDS ORDERED: Sodium Chloride 0.9% 1000 ML 1,000 ML ONE ×3 (05:16→08:01)
[2022-04-09] MEDS ORDERED: TYLENOL 325 MG ONE ×2 (05:25→08:01)
[2022-04-09] MEDS ORDERED: TYLENOL 325 MG PO STA (05:28)
[2022-04-09] MEDS ORDERED: PIPERACILLIN/TAZOBACTAM 3.375 GM in Sodium Chloride 100ML MINI-BAG PLUS 100 ML IV ONE (06:21)
[2022-04-09] MEDS ORDERED: PIPERACILLIN/TAZOBACTAM IV ONE (06:24)
[2022-04-09] MEDS ORDERED: Sodium Chloride 100ML MINI-BAG PLUS 100 ML IV ONE (06:25)
--- NOTE | 2022-04-09 07:34 | XRAY ---
Indication: Short of breath and tachypnea. Elevated d-dimer. Multiple contiguous axial images obtained through the chest using 100 cc Isovue 370 contrast and PE protocol. Comparison: September 11, 2019 Adequate opacification of the pulmonary arteries to include the lobar and segmental branches. No pulmonary embolus. Heart not enlarged. Aorta again minimally arteriosclerotic without aneurysm/dissection. No pathologic mediastinal/hilar lymphadenopathy. Lungs again hyperinflated with tiny right upper lobe calcified granulomas and minimal bibasilar fibrosis/scarring. No infiltrate, effusion, or pneumothorax. Bony thorax intact again with minimal generative changes throughout the spine. CT abdomen/pelvis reported separately. Impression: 1. Negative pulmonary embolus. 2. Again chronic findings including pulmonary fibrosis/scarring, chronic bony findings, and old granulomatous disease. Comment: Preliminary interpretation made by [facility]. No critical discrepancy.
--- NOTE | 2022-04-09 07:36 | XRAY ---
Indication: Fever, short of breath, and tachycardia. Comparison: June 02, 2016 Portable chest remains hyperinflated with stable same day CT proven right upper lobe calcified granuloma. Remaining heart and lungs unremarkable. Bony thorax intact. No new/acute findings.
--- NOTE | 2022-04-09 07:44 | XRAY ---
Indication: Abdomen pain. Multiple contiguous axial images obtained through the abdomen and pelvis using 100 cc Isovue 370 contrast. Comparison: None CT chest reported separately. Noncontrasted stomach and bowel loops appear nonobstructed with normal appendix. Descending and sigmoid diverticulosis without diverticulitis. 4 mm right UVJ calculus. Proximal right ureter is distended up to 1.1 cm along with moderate hydronephrosis, perirenal/periureteral stranding, and no excretion on delayed images favoring high-grade obstructive uropathy. No free fluid/air. Moderately distended gallbladder with gallstones in the neck of the gallbladder, largest 1.2 cm. Remaining liver, pancreas, spleen, adrenal glands, left kidney, left ureter, and bladder are unremarkable. Mild scattered aortoiliac calcifications. No AAA or pathological retroperitoneal lymphadenopathy. Osseous structures intact with mild degenerative changes throughout the spine and left total hip arthroplasty with intact bipolar prosthesis and 2 acetabular screws. Impression: 1. 4 mm right UVJ calculus producing high-grade obstruction as detailed. 2. Distended gallbladder with gallstones better evaluated with sonogram if clinically warranted. 3. Chronic findings including colonic diverticulosis, chronic bony findings, and arteriosclerotic disease. Comment: Preliminary interpretation made by [facility] who does not report incidental distended gallbladder with gallstones.
[2022-04-09] MEDS ORDERED: MOTRIN 400 MG PO ONE (07:55)
[2022-04-09] MEDS ORDERED: TYLENOL 325 MG PO ONE (07:55)
[2022-04-09] MEDS ORDERED: MOTRIN 400 MG ONE (08:01)
[2022-04-09] MEDS ORDERED: Dopamine 400 MG/D5W 250ML PREMIX 250 ML IV PRN (11:12)
[2022-04-09] MEDS ORDERED: Sodium Chloride 0.9% 1000 ML 1,000 ML IV SCH (11:15)
[2022-04-09] MEDS ORDERED: NOREPINEPHRINE 8 MG/250 ML-D5W 8 MG/250 ML PLAST..BAG IV PRN (11:33)
[2022-04-09 13:55] LABS: Absolute Neutrophil Ct (ANC) 20.48 x10^3/uL (1.4-6.9); Basophil (Absolute #) 0.07 x10^3/uL (0-0.4); Eosinophil % 0.1 % (0.00-5.0); Eosinophil (Absolute #) 0.03 x10^3/uL (0-0.5); Hematocrit 39.6 % (42-50); Lymphocyte (Absolute #) 0.56 x10^3/uL (1.0-4.6); Lymphocytes % 2.5 % (24.0-44.0); Mean Cell Volume 95.4 fL (78-100); Mean Corpuscular Hemoglobin 28.9 pg (26-32); Mean Corpuscular Hgb Concent. 30.3 g/dL (32-36); Mean Platelet Volume 9.3 fL (7.5-11.0); Monocyte (Absolute #) 1.37 x10^3/uL (0.0-1.3); Platelet Count 218 x10^3/uL (150-450); Red Blood Count 4.15 x10^6/uL (4.1-5.6); White Blood Count 22.8 x10^3/uL (4.0-10.5)
[2022-04-09 14:16] LABS: BILIRUBIN,TOTAL 1.3 mg/dL (0.2-1.3); Calcium 7.8 mg/dL (8.4-10.2); Creatinine 1 2.45 mg/dL (0.66-1.25); EST GLOMERULAR FILTRATION RATE 28.9 ML/MIN; Potassium 4.9 mmol/L (3.5-5.1); Total Protein 5.5 g/dL (6.3-8.2)
[2022-04-09] MEDS ORDERED: PROVENTIL 2.5 MG/3 ML NEB IH ONE ×2 (14:23→14:30)
[2022-04-09] MEDS ORDERED: MORPHINE SULFATE 4 MG INJ IV ONE (15:05)
[2022-04-09] MEDS ORDERED: Zofran 4 MG/2 ML VIAL IV ONE (15:05)
[2022-04-09] MEDS ORDERED: MORPHINE SULFATE 4 MG INJ ONE (15:15)
[2022-04-09] MEDS ORDERED: Zofran 4 MG/2 ML VIAL ONE (15:15)
[2022-04-09 16:09] LABS: Slide Review 1 YES
[2022-04-09 16:24] VITALS: BP 124/74; PULSE 110; O2SAT 94
== END 2022-04-09 16:27 | disposition short-term general hospital (02) ==
LOC: ED 23:05
DX: A41.9 Sepsis, unspecified organism (principal); N13.6 Pyonephrosis; E83.42 Hypomagnesemia; R10.11 Right upper quadrant pain; R10.9 Unspecified abdominal pain; R50.9 Fever, unspecified; R11.0 Nausea; R30.0 Dysuria; Z79.84 Long term (current) use of oral hypoglycemic drugs; Z79.899 Other long term (current) drug therapy; I10 Essential (primary) hypertension
CPT/HCPCS: 0241U; 36000; 36415; 71045; 71260; 74177; 80053; 81001; 83605; 83690; 83735; 84100; 84145; 84484; 85025; 85379; 85610; 85730; 87040; 87077; 87086; 87186; 87641; 93005; 93041; 94640; 94760; 96360; 96361; 96365; 96367; 96374; 96375; 99285; 99291; 99292; J2270; J2405; J3475; J7609; A9270-GY; J3370

== ENCOUNTER 2022-04-16 11:15 | Emergency (ER) | payer MEDICARE ==
[2022-04-16] MEDS ORDERED: Sodium Chloride 0.9% 1000 ML 1,000 ML IV STA (11:21)
[2022-04-16] MEDS ORDERED: Zofran 4 MG/2 ML VIAL IV ONE (11:21)
[2022-04-16] MEDS ORDERED: MORPHINE SULFATE 4 MG INJ ONE (11:30)
[2022-04-16] MEDS ORDERED: Zofran 4 MG/2 ML VIAL ONE (11:30)
[2022-04-16] MEDS ORDERED: Sodium Chloride 0.9% 1000 ML 1,000 ML ONE (11:30)
[2022-04-16 11:39] LABS: BASOPHIL % 0.4 % (0.0-0.4); Basophil (Absolute #) 0.04 x10^3/uL (0-0.4); Eosinophil % 1.9 % (0.00-5.0); Eosinophil (Absolute #) 0.18 x10^3/uL (0-0.5); Hematocrit 40.7 % (42-50); Hemoglobin 12.5 g/dL (12.5-18.0); IMMATURE GRAN % 4.3 % (0.00-0.4); Lymphocyte (Absolute #) 1.01 x10^3/uL (1.0-4.6); Lymphocytes % 10.8 % (24.0-44.0); Mean Cell Volume 92.3 fL (78-100); Mean Corpuscular Hemoglobin 28.3 pg (26-32); Mean Corpuscular Hgb Concent. 30.7 g/dL (32-36); Monocyte (Absolute #) 0.89 x10^3/uL (0.0-1.3); Monocytes % 9.5 % (0.0-12.0); Neutrophil % 73.1 % (36.0-66.0); Platelet Count 327 x10^3/uL (150-450); Red Blood Count 4.41 x10^6/uL (4.1-5.6); Red Cell Distribution Width 14.1 % (11.5-14.0); White Blood Count 9.3 x10^3/uL (4.0-10.5)
[2022-04-16] MEDS ORDERED: MORPHINE SULFATE 4 MG INJ IV ONE (11:39)
[2022-04-16 11:50] LABS: ADD URINE CULTURE? NO (NO); Appearance Clear (Clear); Bacteria None Seen /HPF (None Seen); Bilirubin Negative (Negative); Blood Moderate (Negative); Epithelial Cells None Seen /HPF (None Seen); Glucose, Urine Negative (Negative); Hyaline Casts NONE SEEN /LPF (0-2); Ketones Negative (Negative); Leukocyte Esterase Negative (Negative); Nitrite Negative (Negative); Ph 5.5 (4.6-8.0); Protein,Urine Dip Negative (Negative); Urobilinogen 0.2 mg/dL (0.2); WBC 0-2 /HPF (0-5)
[2022-04-16 11:52] LABS: ALBUMIN 3.9 g/dL (3.5-5.0); ALKALINE PHOSPHATASE 44 U/L (38-126); ANION GAP 8.9 MEQ/L (5-15); BLOOD UREA NITROGEN 23 mg/dL (9-20); CHLORIDE 97 mmol/L (98-107); Calcium 8.9 mg/dL (8.4-10.2); Carbon Dioxide 29 mmol/L (22-30); Creatinine 1 1.17 mg/dL (0.66-1.25); EST GLOMERULAR FILTRATION RATE > 60.0 ML/MIN; Glucose 136 mg/dL (74-106); LIPASE 57 U/L (23-300); Potassium 4.3 mmol/L (3.5-5.1); SGOT/AST 32 U/L (17-59); SGPT/ALT 43 U/L (0-50); SODIUM 131 mmol/L (137-145); Total Protein 7.3 g/dL (6.3-8.2)
--- NOTE | 2022-04-16 13:08 | ERPHSYRPT ---
- History of Present Illness Time Seen by Provider: 04/16/22 11:25 Historian: patient Exam Limitations: no limitations Patient Subjective Stated Complaint: Pt was here last week with an obstructed kidney stone and was flown to [place] and had a stent placed in his right kidney and has a urine bag coming from it, pt returns today with pain in the left quadrants that began today Triage Nursing Assessment: Pt brought to the ER by his family, hypotensive, tachycardic, rates pain as 8/10, pain in the right quadrants and with palpatation, pulses normal, skin n/w/d, wears 3L NC at all times, denies N&V, last intake this AM, last BM yesterday Physician History: 61-year-old male with history of chronic respiratory failure on oxygen, hypertension, hyperlipidemia recent right sided obstruction with nephrostomy tube placement presented in the ER with chief complaint of left sided abdominal pain since morning, moderate to severe sharp with no associated nausea or vomiting. No difficulty urination. No fever or chills reported. Denies constipation or diarrhea. Timing/Duration: today, constant, sudden Activities at Onset: rest Quality: sharpness Abdominal Pain Onset Location: LUQ, flank Pain Radiation: no radiation Severity of Pain-Max: severe Severity of Pain-Current: severe Modifying Factors: Worsens With: movement, palpation Associated Symptoms: denies symptoms Previous symptoms: no prior history Allergies/Adverse Reactions: No Known Drug Allergies Allergy (Verified 04/16/22 11:36) Home Medications: Albuterol Sulfate [Proair Hfa] 2 puff IH Q6H 08/06/15 [History] Budesonide/Formoterol Fumarate [Symbicort 160-4.5 Mcg Inhaler] 2 puff IH BID 08/06/15 [History] Pravastatin Sodium 40 mg PO HS 08/06/15 [History] Metoprolol Tartrate 25 mg [Lopressor 25MG Tab] 1 tab PO BID 02/02/16 [History] Furosemide [Lasix] 20 mg PO DAILY 01/01/20 [History] Hydrocodone/APAP 10/325 mg [[place] 10/325 MG Tablet] 1 tab PO Q6H PRN PRN 01/01/20 [History] Metformin HCl 500 mg [Glucophage 500 MG] 500 mg PO BIDWM 01/01/20 [History] Prednisone 10 mg [Deltasone 10 mg] 5 mg PO DAILY 01/01/20 [History] lisinopriL [Lisinopril] 2.5 mg PO DAILY 01/01/20 [History] Ciprofloxacin HCl [Cipro] 500 mg PO BID 04/16/22 [History] Tamsulosin HCl 0.4 mg [Flomax 0.4 MG] 0.4 mg PO DAILY 04/16/22 [History] Hx Tetanus, Diphtheria Vaccination/Date Given: Yes Hx Influenza Vaccination/Date Given: No Hx Pneumococcal Vaccination/Date Given: No Travel Risk - International Travel Have you traveled outside of the country in past 3 weeks: No - Coronavirus Screening Are you exhibiting any of the following symptoms?: No - Vaccine Status Have you recieved a Covid-19 vaccination: Yes [employer]: [employer] - Review of Systems Constitutional: No Symptoms Eyes: No Symptoms Ears, Nose, & Throat: No Symptoms Respiratory: No Symptoms Cardiac: No Symptoms Abdominal/Gastrointestinal: Abdominal Pain Genitourinary Symptoms: No Symptoms Musculoskeletal: No Symptoms Skin: No Symptoms Neurological: No Symptoms Psychological: No Symptoms Endocrine: No Symptoms Hematologic/Lymphatic: No Symptoms Immunological/Allergic: No Symptoms - Past Medical History Pertinent Past Medical History: Yes Neurological History: No Pertinent History ENT History: No Pertinent History Cardiac History: Hypertension, Other Respiratory History: Asthma, COPD Endocrine Medical History: No Pertinent History Musculoskeletal History: No Pertinent History GI Medical History: No Pertinent History History: No Pertinent History Psycho-Social History: Anxiety Male Reproductive Disorders: No Pertinent History Other Medical History: 2L oxygen 24/7 - Past Surgical History Past Surgical History: Yes Neuro Surgical History: No Pertinent History Cardiac: Cardiac Catheterization Respiratory: No Pertinent History Gastrointestinal: No Pertinent History Genitourinary: No Pertinent History Musculoskeletal: Joint Replacement, Orthopedic Surgery Male Surgical History: No Pertinent History Other Surgical History: left hip replacement, 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 017 - Social History Smoking Status: Former smoker How long have you smoked: 30YRS Exposure to second hand smoke: Yes (occassionally) Drug Use: none Patient Lives Alone: Yes - Nursing Vital Signs Nursing Vital Signs: Initial Vital Signs Pulse Rate 121 H 04/16/22 11:20 Blood Pressure 97/83 04/16/22 11:20 O2 Sat by Pulse Oximetry 99 04/16/22 11:20 Pain Scale Pain Intensity 5 - Physical Exam General Appearance: no apparent distress, alert Eye Exam: PERRL/EOMI Ears, Nose, Throat Exam: normal ENT inspection Neck Exam: normal inspection, non-tender, supple, full range of motion Respiratory Exam: normal breath sounds, lungs clear Cardiovascular Exam: normal heart sounds, tachycardia Gastrointestinal/Abdomen Exam: soft (EMS), normal bowel sounds, tenderness (Right side) Back Exam: normal inspection, normal range of motion, CVA tenderness (Bilateral) Extremity Exam: normal inspection, normal range of motion Neurologic Exam: alert, oriented x 3, cooperative Skin Exam: normal color SpO2 Interpretation: normal SpO2: 99 O2 Delivery: Room Air Ordered Tests: Active Orders 24 hr Category Date Time Status IV Insertion STAT Care 04/16/22 11:21 Active NPO (ED) STAT Care 04/16/22 11:21 Active Oxygen-ED Only Nasal Cannula 3 lpm Care 04/16/22 12:39 Active ABDOMEN AND PELVIS W/0 CONTRAS [CT] Stat Exams 04/16/22 11:21 Taken CBC W DIFF Stat Lab 04/16/22 11:15 Completed CMP Stat Lab 04/16/22 11:15 Completed LIPASE Stat Lab 04/16/22 11:15 Completed Lactic Acid Stat Lab 04/16/22 11:29 Completed UA W/RFX UR CULTURE Stat Lab 04/16/22 11:28 Completed Medication Summary Discontinued Medications Generic Name Dose Route Start Last Admin Trade Name Joseq PRN Reason Stop Dose Admin Sodium Chloride 1,000 mls @ 999 mls/hr 04/16/22 11:21 04/16/22 12:33 Sodium Chloride 0.9% 1000 Ml IV 04/16/22 12:21 Infused .Q1H1M STA Infusion Sodium Chloride Confirm 04/16/22 11:30 Sodium Chloride 0.9% 1000 Ml Administered 04/16/22 11:31 Dose 1,000 mls @ ud .ROUTE .STK-MED ONE Morphine Sulfate Confirm 04/16/22 11:30 Morphine Sulfate 4 Mg/Ml Injection Administered 04/16/22 11:31 Dose 4 mg .ROUTE .STK-MED ONE Morphine Sulfate 4 mg 04/16/22 11:39 04/16/22 11:41 Morphine Sulfate 4 Mg/Ml Injection IV 04/16/22 11:40 4 mg STAT ONE Administration Ondansetron HCl 4 mg 04/16/22 11:21 04/16/22 11:32 Ondansetron Hcl 4 Mg/2 Ml Vial IV 04/16/22 11:22 4 mg STAT ONE Administration Ondansetron HCl Confirm 04/16/22 11:30 Ondansetron Hcl 4 Mg/2 Ml Vial Administered 04/16/22 11:31 Dose 4 mg .ROUTE .STK-MED ONE Lab/Rad Data: Laboratory Result Diagrams 04/16/22 11:15 04/16/22 11:15 Laboratory Results 04/16/22 04/16/22 04/16/22 Range/Units 11:29 11:28 11:15 WBC (4.0-10.5) x10^3/uL RBC (4.1-5.6) x10^6/uL Hgb (12.5-18.0) g/dL Hct (42-50) % MCV (78-100) fL MCH (26-32) pg MCHC (32-36) g/dL RDW (11.5-14.0) % Plt Count (150-450) x10^3/uL MPV (7.5-11.0) fL Gran % (36.0-66.0) % Immature Gran % (Auto) (0.00-0.4) % Nucleat RBC Rel Count (0.00-0.1) % Eos # (Auto) (0-0.5) x10^3/uL Immature Gran # (Auto) (0.00-0.03) x10^3u/L Absolute Lymphs (auto) (1.0-4.6) x10^3/uL Absolute Monos (auto) (0.0-1.3) x10^3/uL Absolute Nucleated RBC (0.00-0.01) x10^3u/L Lymphocytes % (24.0-44.0) % Monocytes % (0.0-12.0) % Eosinophils % (0.00-5.0) % Basophils % (0.0-0.4) % Absolute Granulocytes (1.4-6.9) x10^3/uL Basophils # (0-0.4) x10^3/uL Sodium 131 L (137-145) mmol/L Potassium 4.3 (3.5-5.1) mmol/L Chloride 97 L (98-107) mmol/L Carbon Dioxide 29 (22-30) mmol/L Anion Gap 8.9 (5-15) MEQ/L BUN 23 H (9-20) mg/dL Creatinine 1.17 (0.66-1.25) mg/dL Estimated GFR > 60.0 ML/MIN Glucose 136 H (74-106) mg/dL Lactic Acid 1.7 (0.4-2.0) Calcium 8.9 (8.4-10.2) mg/dL Total Bilirubin 0.70 (0.2-1.3) mg/dL AST 32 (17-59) U/L ALT 43 (0-50) U/L Alkaline Phosphatase 44 (38-126) U/L Serum Total Protein 7.3 (6.3-8.2) g/dL Albumin 3.9 (3.5-5.0) g/dL Lipase 57 (23-300) U/L Urine Color Yellow (Yellow) Urine Appearance Clear (Clear) Urine pH 5.5 (4.6-8.0) Ur Specific [place] 1.010 (1.005-1.030) Urine Protein Negative (Negative) Urine Glucose (UA) Negative (Negative) mg/dL Urine Ketones Negative (Negative) Urine Blood Moderate A (Negative) Urine Nitrite Negative (Negative) Urine Bilirubin Negative (Negative) Urine Urobilinogen 0.2 (0.2) mg/dL Ur Leukocyte Esterase Negative (Negative) U Hyaline Cast (Auto) NONE SEEN (0-2) /LPF Urine Microscopic RBC 3-5 (0-5) /HPF Urine Microscopic WBC 0-2 (0-5) /HPF Ur Epithelial Cells None Seen (None Seen) /HPF Urine Bacteria None Seen (None Seen) /HPF Urine Culture Reflexed NO (NO) 04/16/22 Range/Units 11:15 WBC 9.3 (4.0-10.5) x10^3/uL RBC 4.41 (4.1-5.6) x10^6/uL Hgb 12.5 (12.5-18.0) g/dL Hct 40.7 L (42-50) % MCV 92.3 (78-100) fL MCH 28.3 (26-32) pg MCHC 30.7 L (32-36) g/dL RDW 14.1 H (11.5-14.0) % Plt Count 327 (150-450) x10^3/uL MPV 9.0 (7.5-11.0) fL Gran % 73.1 H (36.0-66.0) % Immature Gran % (Auto) 4.3 H (0.00-0.4) % Nucleat RBC Rel Count 0.0 (0.00-0.1) % Eos # (Auto) 0.18 (0-0.5) x10^3/uL Immature Gran # (Auto) 0.40 H (0.00-0.03) x10^3u/L Absolute Lymphs (auto) 1.01 (1.0-4.6) x10^3/uL Absolute Monos (auto) 0.89 (0.0-1.3) x10^3/uL Absolute Nucleated RBC 0.00 (0.00-0.01) x10^3u/L Lymphocytes % 10.8 L (24.0-44.0) % Monocytes % 9.5 (0.0-12.0) % Eosinophils % 1.9 (0.00-5.0) % Basophils % 0.4 (0.0-0.4) % Absolute Granulocytes 6.80 (1.4-6.9) x10^3/uL Basophils # 0.04 (0-0.4) x10^3/uL Sodium (137-145) mmol/L Potassium (3.5-5.1) mmol/L Chloride (98-107) mmol/L Carbon Dioxide (22-30) mmol/L Anion Gap (5-15) MEQ/L BUN (9-20) mg/dL Creatinine (0.66-1.25) mg/dL Estimated GFR ML/MIN Glucose (74-106) mg/dL Lactic Acid (0.4-2.0) Calcium (8.4-10.2) mg/dL Total Bilirubin (0.2-1.3) mg/dL AST (17-59) U/L ALT (0-50) U/L Alkaline Phosphatase (38-126) U/L Serum Total Protein (6.3-8.2) g/dL Albumin (3.5-5.0) g/dL Lipase (23-300) U/L Urine Color (Yellow) Urine Appearance (Clear) Urine pH (4.6-8.0) Ur Specific [place] (1.005-1.030) Urine Protein (Negative) Urine Glucose (UA) (Negative) mg/dL Urine Ketones (Negative) Urine Blood (Negative) Urine Nitrite (Negative) Urine Bilirubin (Negative) Urine Urobilinogen (0.2) mg/dL Ur Leukocyte Esterase (Negative) U Hyaline Cast (Auto) (0-2) /LPF Urine Microscopic RBC (0-5) /HPF Urine Microscopic WBC (0-5) /HPF Ur Epithelial Cells (None Seen) /HPF Urine Bacteria (None Seen) /HPF Urine Culture Reflexed (NO) - Progress Progress: improved, re-examined Progress Note: 04/16/22 13:05 61-year-old with chronic respiratory failure secondary to COPD on oxygen, hypertension, hyperlipidemia, diabetes mellitus, recent right nephrostomy tube placement presented in the ER with left-sided abdominal pain since morning moderate to severe sharp, more with movements and palpation without associated nausea vomiting diarrhea or constipation. No difficulty urination. No fever or chills reported. Patient has significant tenderness on the left side, given morphine along with fluids and on reevaluation pain is completely resolved. Has normal white count, lactate and fairly unremarkable chemistries except for mildly low sodium, stable renal functions and no UTI. Obtained CT abdomen pelvis which is negative for any acute intra-abdominal/pelvic findings. Nephrostomy tube well in place. I do not know the exact cause of his pain but have no obstruction, colitis, perforation or stone/obstructive uropathy on the left side. Patient does have pain medication at home which she is advised to continue. Discussed signs symptoms of worsening needing return to ER which he seems understanding. Stable for discharge. Counseled pt/family regarding: lab results, diagnosis, need for follow-up, rad results - Departure Departure Disposition: Home Clinical Impression: Left sided abdominal pain of unknown cause Condition: Stable Critical Care Time: No Referrals: HARPREET BHATIA MD [Primary Care Provider] - Follow up/PCP as directed (In 2 days for reevaluation) Instructions: Severe Abdominal Pain, Adult (DC) Additional Instructions: Take pain medications as needed. Follow-up with your primary care for reevalua tion. Return to ER for intractable abdominal pain/vomiting/fever chills/difficulty urination etc.
[2022-04-16 13:32] LABS: INFLUENZA A NEGATIVE (NEGATIVE); INFLUENZA B NEGATIVE (NEGATIVE); RESPIRATORY SYNCTIAL VIRUS NEGATIVE (Negative); SARS-CoV-2 Xpert Express NEGATIVE (NEGATIVE)
[2022-04-16 14:08] VITALS: BP 100/87; PULSE 78; O2SAT 98
--- NOTE | 2022-04-16 19:42 | XRAY ---
Indication: Abdomen/flank pain. Status post right renal percutaneous drainage catheter insertion. Multiple contiguous images obtained through the abdomen and pelvis without contrast. Comparison: April 09, 2022 Lung bases clear. Heart not enlarged. Noncontrasted stomach and bowel loops nonobstructed again with normal appendix and scattered descending/sigmoid colonic diverticulosis. Stable 4-5 mm right UVJ calculus. Right kidney demonstrates new percutaneous pigtail catheter in good position without hydronephrosis or hydroureter. No free fluid/air. Again multiple gallstones, largest 1.2 cm in the neck of the gallbladder. Remaining liver, pancreas, spleen, adrenal glands, left kidney, ureters, and bladder are unremarkable for noncontrast exam. Again mild aortoiliac calcifications without AAA. Impression: 1. Status post right renal percutaneous pigtail catheter placement without hydronephrosis/hydroureter. Stable 4-5 mm right UVJ calculus. 2. Again cholelithiasis and colonic diverticulosis. Comment: Preliminary interpretation made by C. No critical discrepancy.
== END 2022-04-16 14:08 | disposition home or self-care (01) ==
LOC: ED 11:15
DX: R10.12 Left upper quadrant pain (principal); I10 Essential (primary) hypertension; E78.5 Hyperlipidemia, unspecified; Z93.6 Other artificial openings of urinary tract status; Z79.84 Long term (current) use of oral hypoglycemic drugs; Z79.891 Long term (current) use of opiate analgesic; Z79.899 Other long term (current) drug therapy; Z20.828 Contact with and (suspected) exposure to other viral communicable diseases
CPT/HCPCS: 0241U; 36000; 36415; 74176; 80053; 81001; 83605; 83690; 85025; 96374; 96375; 99284; J2270; J2405

== ENCOUNTER 2022-04-20 13:58 | Emergency (ER) | payer MEDICARE ==
[2022-04-20] MEDS ORDERED: Zofran 4 MG/2 ML VIAL IV ONE (15:08)
[2022-04-20] MEDS ORDERED: MORPHINE SULFATE 4 MG INJ IV ONE (15:08)
[2022-04-20] MEDS ORDERED: Sodium Chloride 0.9% 1000 ML 1,000 ML IV STA (15:08)
[2022-04-20 15:26] LABS: Absolute Neutrophil Ct (ANC) 8.56 x10^3/uL (1.4-6.9); BASOPHIL % 0.3 % (0.0-0.4); Basophil (Absolute #) 0.03 x10^3/uL (0-0.4); Eosinophil % 0.5 % (0.00-5.0); Eosinophil (Absolute #) 0.05 x10^3/uL (0-0.5); Hematocrit 39.9 % (42-50); Hemoglobin 12.2 g/dL (12.5-18.0); IMMATURE GRAN # 0.05 x10^3u/L (0.00-0.03); IMMATURE GRAN % 0.5 % (0.00-0.4); Lymphocyte (Absolute #) 0.63 x10^3/uL (1.0-4.6); Lymphocytes % 6.4 % (24.0-44.0); Mean Corpuscular Hemoglobin 28.4 pg (26-32); Mean Corpuscular Hgb Concent. 30.6 g/dL (32-36); Mean Platelet Volume 8.9 fL (7.5-11.0); Monocyte (Absolute #) 0.57 x10^3/uL (0.0-1.3); Monocytes % 5.8 % (0.0-12.0); Neutrophil % 86.5 % (36.0-66.0); Platelet Count 342 x10^3/uL (150-450); Red Blood Count 4.29 x10^6/uL (4.1-5.6); White Blood Count 9.9 x10^3/uL (4.0-10.5)
[2022-04-20] MEDS ORDERED: MORPHINE SULFATE 4 MG INJ ONE (15:26)
[2022-04-20] MEDS ORDERED: Zofran 4 MG/2 ML VIAL ONE (15:26)
[2022-04-20] MEDS ORDERED: Sodium Chloride 0.9% 1000 ML 1,000 ML ONE (15:27)
[2022-04-20 15:44] LABS: ALKALINE PHOSPHATASE 48 U/L (38-126); ANION GAP 8.6 MEQ/L (5-15); BLOOD UREA NITROGEN 15 mg/dL (9-20); CHLORIDE 101 mmol/L (98-107); Carbon Dioxide 30 mmol/L (22-30); Creatinine 1 1.04 mg/dL (0.66-1.25); EST GLOMERULAR FILTRATION RATE > 60.0 ML/MIN; Glucose 121 mg/dL (74-106); LIPASE 73 U/L (23-300); Potassium 4.5 mmol/L (3.5-5.1); SGOT/AST 28 U/L (17-59); SGPT/ALT 27 U/L (0-50); SODIUM 135 mmol/L (137-145); Total Protein 7.2 g/dL (6.3-8.2)
[2022-04-20 16:27] VITALS: BP 115/85
[2022-04-20 17:08] VITALS: PULSE 102; O2SAT 98
--- NOTE | 2022-04-20 17:13 | XRAY ---
Indication: Epigastric pain. Multiple contiguous axial images obtained through the abdomen and pelvis using 80 cc Isovue 370 contrast. Comparison: April 16, 2022 Lung bases remain clear. Heart not enlarged. Noncontrasted stomach and bowel loops nonobstructed again with normal appendix and scattered descending/sigmoid colonic diverticulosis. Stable 4-5 mm right UVJ calculus and right renal percutaneous pigtail catheter without hydronephrosis/hydroureter. Both kidneys enhance and excrete. No free fluid/air. Again multiple gallstones, largest in the neck of the gallbladder unchanged. Remaining liver, pancreas, spleen, adrenal glands, left kidney, ureters, and bladder are unremarkable. No AAA or pathologic retroperitoneal lymphadenopathy. Impression: No change compared to CT 4 days ago. Again 4-5 mm right UVJ calculus, right renal percutaneous pigtail catheter in situ without hydronephrosis/hydroureter, cholelithiasis, and colonic diverticulosis.
[2022-04-20 17:30] LABS: Appearance Clear (Clear); Bacteria None Seen /HPF (None Seen); Bilirubin Negative (Negative); Blood Trace (Negative); Epithelial Cells None Seen /HPF (None Seen); Glucose, Urine Negative (Negative); Hyaline Casts NONE SEEN /LPF (0-2); Ketones Negative (Negative); Leukocyte Esterase Negative (Negative); Nitrite Negative (Negative); Protein,Urine Dip Negative (Negative); RBC 0-2 /HPF (0-5); Specific Gravity <=1.005 (1.005-1.030); Urobilinogen 0.2 mg/dL (0.2); WBC 0-2 /HPF (0-5)
[2022-04-20 17:42] LABS: ADD URINE CULTURE? NO (NO)
--- NOTE | 2022-04-20 17:48 | ERPHSYRPT ---
- History of Present Illness Time Seen by Provider: 04/20/22 14:05 Source: patient Exam Limitations: no limitations Patient Subjective Stated Complaint: Pt c/o of upper medial epigastric pain Triage Nursing Assessment: Pt brought to the ER by his son, vitals wnl, rates pain as 4/10, skin flushed, pulses normal, on 3L NC, states that he is getting a weird taste in his mouth, denies flank pain, denies vomiting, denies issues with bowels Physician History: Patient is here for acute on chronic flank and epigastric pain. Patient recently had a nephrostomy tube placed. He states that he had sepsis from an infected stone. Currently on Cipro. Patient's stone is still in place. Nephrostomy tube still in place. Patient's home health nurse saw the patient today. She felt that he would need to be evaluated. Therefore came to the emergency department. Patient afebrile, no tachycardia. Patient has no active chest pain. States that he has some slight flank pain. Mild epigastric pain. No active nausea, vomiting. He has continued to take his Cipro. Timing/Duration: today Allergies/Adverse Reactions: No Known Drug Allergies Allergy (Verified 04/20/22 15:03) Home Medications: Albuterol Sulfate [Proair Hfa] 2 puff IH Q6H 08/06/15 [History] Budesonide/Formoterol Fumarate [Symbicort 160-4.5 Mcg Inhaler] 2 puff IH BID 08/06/15 [History] Pravastatin Sodium 40 mg PO HS 08/06/15 [History] Metoprolol Tartrate 25 mg [Lopressor 25MG Tab] 1 tab PO BID 02/02/16 [History] Furosemide [Lasix] 20 mg PO DAILY 01/01/20 [History] Hydrocodone/APAP 10/325 mg [[place] 10/325 MG Tablet] 1 tab PO Q6H PRN PRN 01/01/20 [History] Metformin HCl 500 mg [Glucophage 500 MG] 500 mg PO BIDWM 01/01/20 [History] Prednisone 10 mg [Deltasone 10 mg] 5 mg PO DAILY 01/01/20 [History] lisinopriL [Lisinopril] 2.5 mg PO DAILY 01/01/20 [History] Ciprofloxacin HCl [Cipro] 500 mg PO BID 04/16/22 [History] Tamsulosin HCl 0.4 mg [Flomax 0.4 MG] 0.4 mg PO DAILY 04/16/22 [History] Hx Tetanus, Diphtheria Vaccination/Date Given: Yes Hx Influenza Vaccination/Date Given: No Hx Pneumococcal Vaccination/Date Given: No Travel Risk - International Travel Have you traveled outside of the country in past 3 weeks: No - Coronavirus Screening Are you exhibiting any of the following symptoms?: No Close contact with a COVID-19 positive Pt in past 14-21 Days: No - Vaccine Status Have you recieved a Covid-19 vaccination: Yes Professional Development Director: Hudl - Review of Systems Constitutional: No Fever, No Chills Eyes: No Symptoms Ears, Nose, & Throat: No Symptoms Respiratory: No Cough, No Dyspnea Cardiac: No Chest Pain, No Edema, No Syncope Abdominal/Gastrointestinal: Abdominal Pain, No Nausea, No Vomiting, No Diarrhea Genitourinary Symptoms: Flank Pain, No Dysuria Musculoskeletal: No Back Pain, No Neck Pain Skin: No Rash Neurological: No Dizziness, No Focal Weakness, No Sensory Changes Psychological: No Symptoms Endocrine: No Symptoms All Other Systems: Reviewed and Negative - Past Medical History Pertinent Past Medical History: Yes Neurological History: No Pertinent History ENT History: No Pertinent History Cardiac History: Hypertension, Other Respiratory History: Asthma, COPD Endocrine Medical History: No Pertinent History Musculoskeletal History: No Pertinent History GI Medical History: No Pertinent History History: No Pertinent History Psycho-Social History: Anxiety Male Reproductive Disorders: No Pertinent History Other Medical History: 3L oxygen 24/7 - Past Surgical History Past Surgical History: Yes Neuro Surgical History: No Pertinent History Cardiac: Cardiac Catheterization Respiratory: No Pertinent History Gastrointestinal: No Pertinent History Genitourinary: No Pertinent History Musculoskeletal: Joint Replacement, Orthopedic Surgery Male Surgical History: No Pertinent History Other Surgical History: left hip replacement, 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, 2016 - Social History Smoking Status: Former smoker How long have you smoked: 30YRS Exposure to second hand smoke: Yes (occassionally) Drug Use: none Patient Lives Alone: Yes - Nursing Vital Signs Nursing Vital Signs: Initial Vital Signs Temperature 97.7 F 04/20/22 14:42 Pulse Rate 99 H 04/20/22 14:42 Blood Pressure 129/84 04/20/22 14:42 O2 Sat by Pulse Oximetry 100 04/20/22 14:42 Pain Scale Pain Intensity 4 - Physical Exam General Appearance: no apparent distress, alert Eye Exam: PERRL/EOMI, eyes nml inspection Ears, Nose, Throat Exam: normal ENT inspection, TMs normal, pharynx normal, moist mucous membranes Neck Exam: normal inspection, non-tender, supple, full range of motion Respiratory Exam: normal breath sounds, lungs clear, No respiratory distress Cardiovascular Exam: regular rate/rhythm, normal heart sounds, normal peripheral pulses Gastrointestinal/Abdomen Exam: soft, normal bowel sounds, other (Nephrostomy tube in place. No overlying cellulitis, subcutaneous abscess. Good urine output through nephrostomy tube.), No tenderness, No mass Back Exam: normal inspection, normal range of motion, No CVA tenderness, No vertebral tenderness Extremity Exam: normal inspection, normal range of motion, pelvis stable Neurologic Exam: alert, oriented x 3, cooperative, normal mood/affect, nml cerebellar function, nml station & gait, sensation nml, No motor deficits Skin Exam: normal color, warm, dry, No rash Lymphatic Exam: No adenopathy SpO2: 98 Comments: 04/20/22 17:57 No abdominal guarding, rebound. - Course Nursing assessment & vital signs reviewed: Yes Ordered Tests: Active Orders 24 hr Category Date Time Status IV Insertion STAT Care 04/20/22 15:08 Active ABDOMEN AND PELVIS W CONTRAST [CT] Stat Exams 04/20/22 15:51 Completed CBC W DIFF Stat Lab 04/20/22 15:20 Completed CMP Stat Lab 04/20/22 15:20 Completed CULTURE,URINE Stat Lab 04/20/22 17:08 Ordered LIPASE Stat Lab 04/20/22 15:20 Completed Lactic Acid Stat Lab 04/20/22 15:08 Completed UA W/RFX UR CULTURE Stat Lab 04/20/22 17:08 Completed Medication Summary Discontinued Medications Generic Name Dose Route Start Last Admin Trade Name Freq PRN Reason Stop Dose Admin Sodium Chloride 1,000 mls @ 999 mls/hr 04/20/22 15:08 04/20/22 16:35 Sodium Chloride 0.9% 1000 Ml IV 04/20/22 16:08 Infused .Q1H1M STA Infusion Sodium Chloride Confirm 04/20/22 15:27 Sodium Chloride 0.9% 1000 Ml Administered 04/20/22 15:28 Dose 1,000 mls @ ud .ROUTE .STK-MED ONE Morphine Sulfate 4 mg 04/20/22 15:08 04/20/22 15:32 Morphine Sulfate 4 Mg/Ml Injection IV 04/20/22 15:09 4 mg STAT ONE Administration Morphine Sulfate Confirm 04/20/22 15:26 Morphine Sulfate 4 Mg/Ml Injection Administered 04/20/22 15:27 Dose 4 mg .ROUTE .STK-MED ONE Ondansetron HCl 4 mg 04/20/22 15:08 04/20/22 15:32 Ondansetron Hcl 4 Mg/2 Ml Vial IV 04/20/22 15:09 4 mg STAT ONE Administration Ondansetron HCl Confirm 04/20/22 15:26 Ondansetron Hcl 4 Mg/2 Ml Vial Administered 04/20/22 15:27 Dose 4 mg .ROUTE .STK-MED ONE Lab/Rad Data: Laboratory Result Diagrams 04/20/22 15:20 04/20/22 15:20 Laboratory Results 04/20/22 04/20/22 04/20/22 Range/Units 17:08 15:20 15:20 WBC 9.9 (4.0-10.5) x10^3/uL RBC 4.29 (4.1-5.6) x10^6/uL Hgb 12.2 L (12.5-18.0) g/dL Hct 39.9 L (42-50) % MCV 93.0 (78-100) fL MCH 28.4 (26-32) pg MCHC 30.6 L (32-36) g/dL RDW 14.0 (11.5-14.0) % Plt Count 342 (150-450) x10^3/uL MPV 8.9 (7.5-11.0) fL Gran % 86.5 H (36.0-66.0) % Immature Gran % (Auto) 0.5 H (0.00-0.4) % Nucleat RBC Rel Count 0.0 (0.00-0.1) % Eos # (Auto) 0.05 (0-0.5) x10^3/uL Immature Gran # (Auto) 0.05 H (0.00-0.03) x10^3u/L Absolute Lymphs (auto) 0.63 L (1.0-4.6) x10^3/uL Absolute Monos (auto) 0.57 (0.0-1.3) x10^3/uL Absolute Nucleated RBC 0.00 (0.00-0.01) x10^3u/L Lymphocytes % 6.4 L (24.0-44.0) % Monocytes % 5.8 (0.0-12.0) % Eosinophils % 0.5 (0.00-5.0) % Basophils % 0.3 (0.0-0.4) % Absolute Granulocytes 8.56 H (1.4-6.9) x10^3/uL Basophils # 0.03 (0-0.4) x10^3/uL Sodium 135 L (137-145) mmol/L Potassium 4.5 (3.5-5.1) mmol/L Chloride 101 (98-107) mmol/L Carbon Dioxide 30 (22-30) mmol/L Anion Gap 8.6 (5-15) MEQ/L BUN 15 (9-20) mg/dL Creatinine 1.04 (0.66-1.25) mg/dL Estimated GFR > 60.0 ML/MIN Glucose 121 H (74-106) mg/dL Lactic Acid (0.4-2.0) Calcium 9.0 (8.4-10.2) mg/dL Total Bilirubin 0.50 (0.2-1.3) mg/dL AST 28 (17-59) U/L ALT 27 (0-50) U/L Alkaline Phosphatase 48 (38-126) U/L Serum Total Protein 7.2 (6.3-8.2) g/dL Albumin 4.0 (3.5-5.0) g/dL Lipase 73 (23-300) U/L Urine Color Yellow (Yellow) Urine Appearance Clear (Clear) Urine pH 5.0 (4.6-8.0) Ur Specific [place] <=1.005 (1.005-1.030) Urine Protein Negative (Negative) Urine Glucose (UA) Negative (Negative) mg/dL Urine Ketones Negative (Negative) Urine Blood Trace (Negative) Urine Nitrite Negative (Negative) Urine Bilirubin Negative (Negative) Urine Urobilinogen 0.2 (0.2) mg/dL Ur Leukocyte Esterase Negative (Negative) U Hyaline Cast (Auto) NONE SEEN (0-2) /LPF Urine Microscopic RBC 0-2 (0-5) /HPF Urine Microscopic WBC 0-2 (0-5) /HPF Ur Epithelial Cells None Seen (None Seen) /HPF Urine Bacteria None Seen (None Seen) /HPF Urine Culture Reflexed NO (NO) 04/20/22 Range/Units 15:08 WBC (4.0-10.5) x10^3/uL RBC (4.1-5.6) x10^6/uL Hgb (12.5-18.0) g/dL Hct (42-50) % MCV (78-100) fL MCH (26-32) pg MCHC (32-36) g/dL RDW (11.5-14.0) % Plt Count (150-450) x10^3/uL MPV (7.5-11.0) fL Gran % (36.0-66.0) % Immature Gran % (Auto) (0.00-0.4) % Nucleat RBC Rel Count (0.00-0.1) % Eos # (Auto) (0-0.5) x10^3/uL Immature Gran # (Auto) (0.00-0.03) x10^3u/L Absolute Lymphs (auto) (1.0-4.6) x10^3/uL Absolute Monos (auto) (0.0-1.3) x10^3/uL Absolute Nucleated RBC (0.00-0.01) x10^3u/L Lymphocytes % (24.0-44.0) % Monocytes % (0.0-12.0) % Eosinophils % (0.00-5.0) % Basophils % (0.0-0.4) % Absolute Granulocytes (1.4-6.9) x10^3/uL Basophils # (0-0.4) x10^3/uL Sodium (137-145) mmol/L Potassium (3.5-5.1) mmol/L Chloride (98-107) mmol/L Carbon Dioxide (22-30) mmol/L Anion Gap (5-15) MEQ/L BUN (9-20) mg/dL Creatinine (0.66-1.25) mg/dL Estimated GFR ML/MIN Glucose (74-106) mg/dL Lactic Acid 1.5 (0.4-2.0) Calcium (8.4-10.2) mg/dL Total Bilirubin (0.2-1.3) mg/dL AST (17-59) U/L ALT (0-50) U/L Alkaline Phosphatase (38-126) U/L Serum Total Protein (6.3-8.2) g/dL Albumin (3.5-5.0) g/dL Lipase (23-300) U/L Urine Color (Yellow) Urine Appearance (Clear) Urine pH (4.6-8.0) Ur Specific [place] (1.005-1.030) Urine Protein (Negative) Urine Glucose (UA) (Negative) mg/dL Urine Ketones (Negative) Urine Blood (Negative) Urine Nitrite (Negative) Urine Bilirubin (Negative) Urine Urobilinogen (0.2) mg/dL Ur Leukocyte Esterase (Negative) U Hyaline Cast (Auto) (0-2) /LPF Urine Microscopic RBC (0-5) /HPF Urine Microscopic WBC (0-5) /HPF Ur Epithelial Cells (None Seen) /HPF Urine Bacteria (None Seen) /HPF Urine Culture Reflexed (NO) - Progress Progress: improved Progress Note: 04/20/22 17:57 differential diagnosis includes kidney stone, compression fracture, infection, UTI, triple AAA - basic labs including: CBC, lipase, CMP, UA - insert IV for fluids, pain meds, nausea control - consider imaging: CT ab/pelvis Patient feels improved with medication. Labs and CT demonstrate no signs of infection. UA shows no infection. CT scan demonstrates no underlying abscess. Patient is making urine through his nephrostomy tube and is also peeing out urine. At this point time no LETICIA or other signs of infection. Lactic acid normal. Will discharge patient home. He will return here for any new or changing symptoms. Patient initially slightly tachycardic however this improved with fluids and laying in the hospital bed. - Departure Departure Disposition: Extended Care Facility Clinical Impression: Flank pain Condition: Stable Critical Care Time: No Referrals: HARPREET BHATIA MD [Primary Care Provider] - Follow up/PCP as directed Instructions: Severe Abdominal Pain, Adult (DC)
== END 2022-04-20 18:00 | disposition home or self-care (01) ==
LOC: ED 13:58
DX: R10.9 Unspecified abdominal pain (principal); Z93.6 Other artificial openings of urinary tract status; R10.13 Epigastric pain; I10 Essential (primary) hypertension; Z79.84 Long term (current) use of oral hypoglycemic drugs; Z79.899 Other long term (current) drug therapy
CPT/HCPCS: 36415; 74177; 80053; 81001; 83605; 83690; 85025; 87086; 96360; 96374; 96375; 99284; J2270; J2405

== ENCOUNTER 2024-06-29 08:26 | Emergency (ER) | payer MEDICARE ==
[2024-06-29 08:40] VITALS: TEMP 97.6
--- NOTE | 2024-06-29 08:55 | ERPHSYRPT ---
- History of Present Illness Time Seen by Provider: 06/29/24 08:51 Patient Subjective Stated Complaint: C/O tachycardia since yesterday morning Triage Nursing Assessment: Patient arrived by ambulance. He is alert and oriented. Wearing 02 @ 3L per N/C upon arrival. NO SOB. No cough. Edema noted to KELLY. ALEXIS OLIVEROS. Physician History: Patient is 64-year-old male with significant past medical history of COPD chronic pain syndrome for which patient is on chronic narcotics program, hypertension, type 2 diabetes mellitus [id number], degenerative osteoarthritis of the lumbar spine thoracic spine and cervical spine as well as hip shoulder and knee for which patient has been under chronic pain management program. Patient started having some palpitations since yesterday morning initially he thought it will go away but today morning when he wake up it was more intense has little bit shortness of breath and dizziness. He denies any heavy pressure type of chest pain nausea vomiting. He denies any blood in the stool or urine. He denies any syncopal episode. Timing/Duration: yesterday Activities at Onset: none Severity of Pain-Max: none Severity of Pain-Current: none Nitro Today/Relief: no nitro taken today Aspirin Treatment Today: no aspirin today Associated Symptoms: shortness of breath Prior Chest Pain/Cardiac Workup: non-cardiac Allergies/Adverse Reactions: No Known Drug Allergies Allergy (Verified 06/29/24 08:31) Home Medications: Albuterol Sulfate [Proair Hfa] 2 puff IH Q6H 08/06/15 [History] Budesonide/Formoterol Fumarate [Symbicort 160-4.5 Mcg Inhaler] 2 puff IH BID 08/06/15 [History] Pravastatin Sodium 40 mg PO HS 08/06/15 [History] Metoprolol Tartrate 25 mg [Lopressor 25MG Tab] 25 mg PO BID 02/02/16 [History] Furosemide [Lasix] 20 mg PO DAILY 01/01/20 [History] Hydrocodone/APAP 10/325 mg [[place]man 10/325 MG Tablet] 1 tab PO Q6H PRN PRN 01/01/20 [History] Metformin HCl 500 mg [Glucophage 500 MG] 500 mg PO BIDWM 01/01/20 [History] Prednisone 10 mg [Deltasone 10 mg] 5 mg PO DAILY 01/01/20 [History] lisinopriL [Lisinopril] 2.5 mg PO DAILY 01/01/20 [History] Aspirin 81 gm Chew [Baby Aspirin 81 mg Chew] 81 mg PO DAILY 06/29/24 [History] Buprenorphine HCl [Belbuca] 600 mcg PO Q12H 06/29/24 [History] Tizanidine HCl 4 mg PO HS PRN 06/29/24 [History] Hx Tetanus, Diphtheria Vaccination/Date Given: Yes Hx Influenza Vaccination/Date Given: No Hx Pneumococcal Vaccination/Date Given: No Immunizations Up to Date: Yes Travel Risk - International Travel Have you traveled outside of the country in past 3 weeks: No - Emerging Infectious Disease Are you exhibiting symptoms associated with any current EIDs: No - Review of Systems Constitutional: No Fever, No Chills Eyes: No Symptoms Ears, Nose, & Throat: No Symptoms Respiratory: Dyspnea, No Cough Cardiac: Palpitations, No Chest Pain, No Edema, No Syncope Abdominal/Gastrointestinal: No Abdominal Pain, No Nausea, No Vomiting, No D iarrhea Genitourinary Symptoms: No Dysuria Musculoskeletal: No Back Pain, No Neck Pain Skin: No Rash Neurological: No Dizziness, No Focal Weakness, No Sensory Changes Psychological: No Symptoms Endocrine: No Symptoms All Other Systems: Reviewed and Negative - Past Medical History Pertinent Past Medical History: Yes Neurological History: No Pertinent History ENT History: No Pertinent History Cardiac History: High Cholesterol, Hypertension, Myocardial Infarction ([place]), Other Respiratory History: Asthma, COPD Endocrine Medical History: No Pertinent History Musculoskeletal History: No Pertinent History GI Medical History: No Pertinent History History: No Pertinent History Psycho-Social History: Anxiety Male Reproductive Disorders: No Pertinent History Other Medical History: Utilizes 02 @ 2L per N/C continuously at home, pain management: Dr. Cerda, Synoptic Meteorologist: Dr. Escobar - Past Surgical History Past Surgical History: Yes Neuro Surgical History: No Pertinent History Cardiac: Cardiac Catheterization Respiratory: No Pertinent History Gastrointestinal: No Pertinent History Genitourinary: No Pertinent History Musculoskeletal: Joint Replacement, Orthopedic Surgery Male Surgical History: No Pertinent History Other Surgical History: left hip replacement, 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, 2016 - Social History Smoking Status: Former smoker Exposure to second hand smoke: Yes (occassionally) Drug Use: none - Social Determinants of Health Will the patient participate in the screening: Declined to provide - Nursing Vital Signs Nursing Vital Signs: Initial Vital Signs Pulse Rate 142 H 06/29/24 08:30 Respiratory Rate 28 H 06/29/24 08:30 O2 Sat by Pulse Oximetry 97 06/29/24 08:30 Pain Scale Pain Intensity 5 - Physical Exam General Appearance: no apparent distress, alert Eye Exam: PERRL/EOMI, eyes nml inspection Ears, Nose, Throat Exam: normal ENT inspection, moist mucous membranes Neck Exam: normal inspection, non-tender, supple Respiratory Exam: normal breath sounds, lungs clear, No respiratory distress Cardiovascular Exam: normal heart sounds, tachycardia, No edema Gastrointestinal/Abdomen Exam: soft, No tenderness, No mass Back Exam: normal inspection, No CVA tenderness, No vertebral tenderness Extremity Exam: normal inspection, normal range of motion Neurologic Exam: alert, oriented x 3, cooperative, normal mood/affect, nml c erebellar function, sensation nml, No motor deficits Skin Exam: normal color, warm, dry Lymphatic Exam: No adenopathy SpO2: 99 - Course Nursing assessment & vital signs reviewed: Yes EKG Interpreted by Me: A-fib (controlled ventricular response) - Radiology Exams Chest X-ray Interpretation: Interpreted by me (COPD changes.), Reviewed by me, No Pneumonia, No Pneumothorax - CT Exams Chest CT Interpretation: Tele-radiologist Report Ordered Tests: Active Orders 24 hr Category Date Time Status Mold Stamper STAT Care 06/29/24 08:47 Active EKG-ER Only STAT Care 06/29/24 08:46 Active Oxygen-ED Only Nasal Cannula 3 lpm Care 06/29/24 12:02 Active CHEST 2 VIEWS (PA AND LAT) Stat Exams 06/29/24 08:46 Taken CHEST WITH CONTRAST [CT] Stat Exams 06/29/24 09:51 Completed CBC W DIFF Stat Lab 06/29/24 08:46 Completed CMP Stat Lab 06/29/24 08:46 Completed D-DIMER QUANTITATIVE Stat Lab 06/29/24 08:46 Completed MAGNESIUM Stat Lab 06/29/24 08:46 Completed NT PRO BNPII Stat Lab 06/29/24 Completed TROPONIN Stat Lab 06/29/24 08:46 Completed UA W/RFX UR CULTURE Stat Lab 06/29/24 12:10 Received Medication Summary Generic Name Dose Route Start Last Admin Trade Name Freq PRN Reason Stop Dose Admin Diltiazem HCl 100 mls @ 5 mls/hr 06/29/24 09:59 06/29/24 11:58 Cardizem Drip 100 Mg/100 Ml D5w IV 07/29/24 09:58 7.5 mg/hr .Q20H PRN 7.5 mls/hr HEART RATE/ A-FIB Titration Protocol 5 MG/HR Discontinued Medications Generic Name Dose Route Start Last Admin Trade Name Prabha PRN Reason Stop Dose Admin Amiodarone HCl 150 mg 06/29/24 11:29 06/29/24 11:35 Amiodarone Hcl 150 Mg/3 Ml Vial IV 06/29/24 11:30 150 mg STAT ONE Administration Amiodarone HCl Confirm 06/29/24 11:31 Amiodarone Hcl 150 Mg/3 Ml Vial Administered 06/29/24 11:32 Dose 150 mg .ROUTE .STK-MED ONE Diltiazem HCl 10 mg 06/29/24 09:20 06/29/24 09:24 Diltiazem Hcl Iv 5 Mg/Ml Vial IV 06/29/24 09:21 10 mg STAT ONE Administration Diltiazem HCl Confirm 06/29/24 09:22 Diltiazem Hcl Iv 5 Mg/Ml Vial Administered 06/29/24 09:23 Dose 50 mg IV .STK-MED ONE Sodium Chloride 1,000 mls @ 999 mls/hr 06/29/24 08:46 06/29/24 09:36 Sodium Chloride 0.9% 1000 Ml IV 06/29/24 09:46 100 mls/hr .Q1H1M STA Infusion Sodium Chloride Confirm 06/29/24 09:22 Sodium Chloride 0.9% 1000 Ml Administered 06/29/24 09:23 Dose 1,000 mls @ ud .ROUTE .STK-MED ONE Nicardipine HCl 25 mg/ Sodium 250 mls @ 50 mls/hr 06/29/24 09:58 Chloride IV 07/29/24 09:57 .Q5H PRN HYPERTENSION Protocol Diltiazem HCl Confirm 06/29/24 09:56 Cardizem Drip 100 Mg/100 Ml D5w Administered 06/29/24 09:57 Dose 100 mls @ ud IV .STK-MED ONE Morphine Sulfate 8 mg 06/29/24 08:46 06/29/24 09:24 Morphine Sulfate 10 Mg/Ml Injection IV 06/29/24 08:47 8 mg STAT ONE Administration Morphine Sulfate Confirm 06/29/24 09:21 Morphine Sulfate 10 Mg/Ml Injection Administered 06/29/24 09:22 Dose 10 mg .ROUTE .STK-MED ONE Morphine Sulfate 8 mg 06/29/24 12:15 Morphine Sulfate 10 Mg/Ml Injection IV 06/29/24 12:16 STAT ONE Lab/Rad Data: Laboratory Result Diagrams 06/29/24 08:46 06/29/24 08:46 Laboratory Results 06/29/24 06/29/24 06/29/24 Range/Units Unknown 08:46 08:46 WBC (4.23-9.07) x10^3/uL RBC (4.63-6.08) x10^6/uL Hgb (13.7-17.5) g/dL Hct (40.1-51.0) % MCV (79.0-92.2) fL MCH (25.7-32.2) pg MCHC (32.3-36.5) g/dL RDW (11.6-14.4) % Plt Count (163-337) x10^3/uL MPV (9.4-12.4) fL Gran % (34.0-67.9) % Immature Gran % (Auto) (0.001-0.429) % Nucleat RBC Rel Count (0.00-0.2) % Eos # (Auto) (0.04-0.54) x10^3/uL Immature Gran # (Auto) (0.001-0.031) x10^3u/L Absolute Lymphs (auto) (1.32-3.57) x10^3/uL Absolute Monos (auto) (0.30-0.82) x10^3/uL Absolute Nucleated RBC (0.00-0.012) x10^3u/L Lymphocytes % (21.8-53.1) % Monocytes % (5.3-12.2) % Eosinophils % (0.8-7.0) % Basophils % (0.2-1.2) % Absolute Granulocytes (1.78-5.38) x10^3/uL Basophils # (0.01-0.08) x10^3/uL D-Dimer 1.78 H* (0.0-0.50) mg/L Sodium 137 (135-145) mmol/L Potassium 4.5 (3.5-5.1) mmol/L Chloride 98 (98-107) mmol/L Carbon Dioxide 31 H (22-30) mmol/L Anion Gap 12.5 (5-15) MEQ/L BUN 21 H (9-20) mg/dL Creatinine 1.13 (0.66-1.25) mg/dL Estimated GFR 73.5 ML/MIN Glucose 127 H (74-106) mg/dL Calcium 8.7 (8.4-10.2) mg/dL Magnesium 1.8 (1.6-2.3) mg/dL Total Bilirubin 0.60 (0.2-1.3) mg/dL AST 35 (17-59) U/L ALT 31 (0-50) U/L Alkaline Phosphatase 48 (38-126) U/L Troponin I 0.059 H* (0.000-0.033) ng/mL NT-Pro-B Natriuret Pep 4000 (<300) pg/mL Serum Total Protein 7.0 (6.3-8.2) g/dL Albumin 4.0 (3.5-5.0) g/dL 06/29/24 Range/Units 08:46 WBC 9.5 H (4.23-9.07) x10^3/uL RBC 4.34 L (4.63-6.08) x10^6/uL Hgb 12.7 L (13.7-17.5) g/dL Hct 41.9 (40.1-51.0) % MCV 96.5 H (79.0-92.2) fL MCH 29.3 (25.7-32.2) pg MCHC 30.3 L (32.3-36.5) g/dL RDW 13.4 (11.6-14.4) % Plt Count 279 (163-337) x10^3/uL MPV 9.6 (9.4-12.4) fL Gran % 79.4 H (34.0-67.9) % Immature Gran % (Auto) 0.3 (0.001-0.429) % Nucleat RBC Rel Count 0.0 (0.00-0.2) % Eos # (Auto) 0.14 (0.04-0.54) x10^3/uL Immature Gran # (Auto) 0.03 (0.001-0.031) x10^3u/L Absolute Lymphs (auto) 0.76 L (1.32-3.57) x10^3/uL Absolute Monos (auto) 0.97 H (0.30-0.82) x10^3/uL Absolute Nucleated RBC 0.00 (0.00-0.012) x10^3u/L Lymphocytes % 8.0 L (21.8-53.1) % Monocytes % 10.2 (5.3-12.2) % Eosinophils % 1.5 (0.8-7.0) % Basophils % 0.6 (0.2-1.2) % Absolute Granulocytes 7.54 H (1.78-5.38) x10^3/uL Basophils # 0.06 (0.01-0.08) x10^3/uL D-Dimer (0.0-0.50) mg/L Sodium (135-145) mmol/L Potassium (3.5-5.1) mmol/L Chloride (98-107) mmol/L Carbon Dioxide (22-30) mmol/L Anion Gap (5-15) MEQ/L BUN (9-20) mg/dL Creatinine (0.66-1.25) mg/dL Estimated GFR ML/MIN Glucose (74-106) mg/dL Calcium (8.4-10.2) mg/dL Magnesium (1.6-2.3) mg/dL Total Bilirubin (0.2-1.3) mg/dL AST (17-59) U/L ALT (0-50) U/L Alkaline Phosphatase (38-126) U/L Troponin I (0.000-0.033) ng/mL NT-Pro-B Natriuret Pep (<300) pg/mL Serum Total Protein (6.3-8.2) g/dL Albumin (3.5-5.0) g/dL Contiguous axial CT images of the chest were acquired with and without administration of intravenous contrast. Coronal and sagittal reconstructions were obtained. One of the following dose reduction techniques were utilized for this exam: Automated exposure con trol, adjustment of the mA and/or kV according to patient size, use of iterative reconstruction. FINDINGS: Lungs: Left basal collapse /atelactasis Right upper lobe calcific focus of 4 mm Clear, no evidence of consolidation, focal lesions. No ground-glass opacities or interstitial changes. No pleural effusion or pleural thickening. Mediastinum: No mediastinal mass or abnormal lymphadenopathy. PatientID: [id number] Patient Name: TRISTON DICKSON Exam Date: 06/29/2024 Procedure: CHEST WITH CONTRAST page 1 of 2 Normal appearance of the thymus. Hilar Structures: Normal size and configuration, no enlargement. Heart and Great Vessels: Normal heart size and configuration. No pericardial effusion. Normal caliber and course of the thoracic aorta and other great vessels. No significant atherosclerosis or aneurysm. Pulmonary Arteries: No evidence of pulmonary embolism. Normal size and course of the pulmonary arteries. Bones: There is a partial collapse of L1 vertebrae. Generalized decrease in bone density Normal bone density and alignment. No evidence of rib fractures. Chest Wall: No masses or soft tissue abnormalities. Upper Abdomen: Visualized portions of the liver, spleen, pancreas, adrenal glands, and kidneys are normal. Gallstones are noted Thyroid: Normal size and morphology. No nodules or masses. Esophagus: Normal course and caliber. No masses or dilatation. IMPRESSION: No evidence of pulmonary embolism. The rest is described above - Progress Progress: improved Air Movement: good Progress Note: 06/29/24 12:09 Patient was given 20 mg of Cardizem while he was in ambulance and 1 L of IV fluid. In the emergency room patient was given another 10 mg of IV Cardizem which did not control the heart rate. Patient heart rate continues to be in 1 50s and 160s. Cardizem drip 5 mg/h was started and for another hour patient heart rate did not change. Amiodarone 150 mg IV one-time push was given which also did not alter the heart rate. Patient is continuously in atrial fibrillation with rapid ventricular response. Patient is not showing any signs or symptoms of chest pain shortness of breath. Patient is maintaining his blood pressure well. Patient troponin is 0.058 which is slightly elevated as well as D-dimer is 1.18. Patient CT chest is negative for pulmonary embolism. At this point of time patient may need cardioversion in a controlled fashion so plan to transfer patient to [facility] where his wheat farmer Dr. Escobar is. Patient is informed about the plan and he agrees. We have called [facility] for transfer arrangements and awaiting phone call. 06/29/24 12:[address] Escobar and call back he accepted patient at [facility] awaiting hospitalist acceptance. [facility] does have a bed so once we talk to the hospitalist patient will be transferred to [facility]. Dr. Escobar advised me to increase the Cardizem drip to 10 mg/h. Blood Culture(s) Obtained: No Antibiotics given: No Counseled pt/family regarding: lab results, diagnosis, need for follow-up, rad results Medical Desision Making - Discussion of managment Care discussed with:: specialist Reviewed:: Test results, Need for additional workup Agreed on:: Treatment plan, need for follow-up Will see patient: in hospital - Diagnostic Testing Diagnostic test were ordered, analyzed, and reviewed by me: Yes Radiological Interpretation: Interpreted by me, Reviewed by me, Discussed w/ radiologist, Teleradiologist Report - Risk of complications The pt has a mod risk of morbidity or mortality based on: Need for minor surgical intervention in patient with know risk factors The pt has a high risk of morbidity or mortality based on: Drug therapy requiring intensive monitoring for toxicity - Departure Departure Disposition: Transfer Clinical Impression: Atrial fibrillation with rapid ventricular response COPD (chronic obstructive pulmonary disease) Qualifiers: COPD type: unspecified COPD Qualified Code(s): J44.9 - Chronic obstructive pulmonary disease, unspecified HTN (hypertension) Qualifiers: Hypertension type: primary hypertension Qualified Code(s): I10 - Essential (primary) hypertension Condition: Fair Critical Care Time: Yes Critical Care Time(excluding separately billable procedures): Critical 30-74 mins Referrals: HARPREET BHATIA MD [Primary Care Provider] - Follow up/PCP as directed Instructions: Chronic Obstructive Pulmonary Disease, Atrial fibrillation
[2024-06-29 09:16] LABS: Absolute Neutrophil Ct (ANC) 7.54 x10^3/uL (1.78-5.38); BASOPHIL % 0.6 % (0.2-1.2); Basophil (Absolute #) 0.06 x10^3/uL (0.01-0.08); Eosinophil % 1.5 % (0.8-7.0); Eosinophil (Absolute #) 0.14 x10^3/uL (0.04-0.54); Hematocrit 41.9 % (40.1-51.0); Hemoglobin 12.7 g/dL (13.7-17.5); IMMATURE GRAN # 0.03 x10^3u/L (0.001-0.031); IMMATURE GRAN % 0.3 % (0.001-0.429); Lymphocyte (Absolute #) 0.76 x10^3/uL (1.32-3.57); Mean Cell Volume 96.5 fL (79.0-92.2); Mean Corpuscular Hemoglobin 29.3 pg (25.7-32.2); Mean Corpuscular Hgb Concent. 30.3 g/dL (32.3-36.5); Mean Platelet Volume 9.6 fL (9.4-12.4); Monocyte (Absolute #) 0.97 x10^3/uL (0.30-0.82); Monocytes % 10.2 % (5.3-12.2); Neutrophil % 79.4 % (34.0-67.9); Platelet Count 279 x10^3/uL (163-337); Red Blood Count 4.34 x10^6/uL (4.63-6.08); Red Cell Distribution Width 13.4 % (11.6-14.4); White Blood Count 9.5 x10^3/uL (4.23-9.07)
[2024-06-29] MEDS ORDERED: MORPHINE SULFATE 10 MG/ML ONE ×2 (09:21→12:38)
[2024-06-29] MEDS ORDERED: Sodium Chloride 0.9% 1000 ML 1,000 ML ONE (09:22)
[2024-06-29] MEDS ORDERED: Cardizem IV 50 MG/10 ML IV ONE (09:22)
[2024-06-29] MEDS: Sodium Chloride 0.9% 1000 ML 1,000 ML IV STA (09:23)
[2024-06-29] MEDS: Cardizem IV 50 MG/10 ML IV ONE (09:24)
[2024-06-29] MEDS: MORPHINE SULFATE 10 MG/ML IV ONE ×2 (09:24→12:40)
[2024-06-29 09:49] LABS: ANION GAP 12.5 MEQ/L (5-15); BILIRUBIN,TOTAL 0.6 mg/dL (0.2-1.3); Calcium 8.7 mg/dL (8.4-10.2); Creatinine 1 1.13 mg/dL (0.66-1.25); EST GLOMERULAR FILTRATION RATE 73.5 ML/MIN; MAGNESIUM 1.8 mg/dL (1.6-2.3); Potassium 4.5 mmol/L (3.5-5.1)
[2024-06-29] MEDS ORDERED: CARDIZEM DRIP 100 MG/100 ML D5W 100 ML IV ONE (09:56)
[2024-06-29] MEDS ORDERED: CARDENE*** 25 MG in Sodium Chloride 0.9% 250 ML 240 ML IV PRN (09:58)
[2024-06-29] MEDS: CARDIZEM DRIP 100 MG/100 ML D5W 100 ML IV PRN (10:00)
[2024-06-29 10:10] LABS: TROPONIN 0.059 ng/mL (0.000-0.033)
[2024-06-29] MEDS ORDERED: Cordarone 150 MG/3 ML Injection ONE (11:31)
[2024-06-29] MEDS: Cordarone 150 MG/3 ML Injection IV ONE (11:35)
--- NOTE | 2024-06-29 12:07 | XRAY ---
CLINICAL HISTORY: elevated d dimer COMPARISON: None available TECHNIQUE: Contiguous axial CT images of the chest were acquired with and without administration of intravenous contrast. Coronal and sagittal reconstructions were obtained. One of the following dose reduction techniques were utilized for this exam: Automated exposure control, adjustment of the mA and/or kV according to patient size, use of iterative reconstruction. FINDINGS: Lungs: Left basal collapse /atelactasis Right upper lobe calcific focus of 4 mm Clear, no evidence of consolidation, focal lesions. No ground-glass opacities or interstitial changes. No pleural effusion or pleural thickening. Mediastinum: No mediastinal mass or abnormal lymphadenopathy. Normal appearance of the thymus. Hilar Structures: Normal size and configuration, no enlargement. Heart and Great Vessels: Normal heart size and configuration. No pericardial effusion. Normal caliber and course of the thoracic aorta and other great vessels. No significant atherosclerosis or aneurysm. Pulmonary Arteries: No evidence of pulmonary embolism. Normal size and course of the pulmonary arteries. Bones: There is a partial collapse of L1 vertebrae. Generalized decrease in bone density Normal bone density and alignment. No evidence of rib fractures. Chest Wall: No masses or soft tissue abnormalities. Upper Abdomen: Visualized portions of the liver, spleen, pancreas, adrenal glands, and kidneys are normal. Gallstones are noted Thyroid: Normal size and morphology. No nodules or masses. Esophagus: Normal course and caliber. No masses or dilatation. IMPRESSION: No evidence of pulmonary embolism. The rest is described above Electronically Signed by: Petra Vera MD. (06/29/2024 12:04:03 EDT)
[2024-06-29 12:33] LABS: Appearance CLEAR (CLEAR)
[2024-06-29 12:37] LABS: Bilirubin NEGATIVE (NEGATIVE); Glucose NEGATIVE (NEGATIVE); Ketones NEGATIVE (NEGATIVE); RBC MODERATE Ery/ul (0-5)
[2024-06-29 12:38] LABS: Nitrite NEGATIVE (NEGATIVE); Ph 5.5 (5-6); Protein,Urine Dip NEGATIVE (Negative); Urobilinogen 0.2 mg/dL (0-1)
[2024-06-29 12:46] LABS: Bacteria None Seen /HPF (None Seen); Epithelial Cells Rare /HPF (None Seen); Non-Squamous Epithelial Cells None Seen /HPF (None Seen); RBC 0-2 /HPF (0-5); WBC NONE SEEN /HPF (0-5)
[2024-06-29] MEDS ORDERED: MORPHINE SULFATE 4 MG INJ ONE (15:45)
[2024-06-29] MEDS: MORPHINE SULFATE 4 MG INJ IV ONE (15:46)
[2024-06-29 16:01] VITALS: BP 101/63; PULSE 98; RESP 14; O2SAT 100
--- NOTE | 2024-06-29 20:17 | XRAY ---
Indication: Short of breath. Palpitations. Comparison: April 09, 2022 PA/lateral chest again hyperinflated with tiny right apical calcified granuloma. New right right middle lobe curvilinear subsegmental atelectasis/scarring. Remaining heart and lungs unremarkable. Bony thorax intact.
== END 2024-06-29 16:01 | disposition short-term general hospital (02) ==
LOC: ED 08:26
DX: I48.20 Chronic atrial fibrillation, unspecified (principal); J44.9 Chronic obstructive pulmonary disease, unspecified; I10 Essential (primary) hypertension; R06.02 Shortness of breath; R42 Dizziness and giddiness; E78.5 Hyperlipidemia, unspecified; E11.9 Type 2 diabetes mellitus without complications; Z79.891 Long term (current) use of opiate analgesic; Z79.84 Long term (current) use of oral hypoglycemic drugs; Z79.899 Other long term (current) drug therapy
CPT/HCPCS: 36415; 71046; 71260; 80053; 81015; 83735; 83880; 84484; 85025; 85379; 93005; 93041; 96361; 96365; 96366; 96374; 96375; 96376; 99285; 99291; J0282; J2270